=== PATIENT | male | born 1960 | race Caucasian/White ===

== ENCOUNTER 2018-09-07 12:15 | Emergency (ER) | payer OTHER ==
--- NOTE | 2018-09-07 13:21 | ER ---
Nurse's Notes [facility] Name: Jc Becerra Jr Age: 58 yrs Sex: Male : 1960 Arrival Date: 09/07/2018 Time: 12:18 Bed 15 Private MD: Diagnosis: Fall due to bumping against object;Pain in left wrist Presentation: 09/07 12:28 Presenting complaint: Patient states: Pain to left wrist after falling and catching aj himself with left hand today just ROLFER. Reports pain when extending fingers. Transition of care: patient was not received from another setting of care. Onset of symptoms was September 07, 2018. Risk Assessment: Do you want to hurt yourself or someone else? Patient reports no desire to harm self or others. Initial Sepsis Screen: Does the patient meet any 2 criteria? No. Patient's initial sepsis screen is negative. Does the patient have a suspected source of infection? No. Patient's initial sepsis screen is negative. Care prior to arrival: None. 12:28 Method Of Arrival: Ambulatory 12:28 Acuity: TESFAYE 4 aj Triage Assessment: 12:30 General: Appears in no apparent distress. comfortable, Behavior is calm, cooperative, aj appropriate for age. Pain: Complains of pain in left wrist. Neuro: Level of Consciousness is awake, alert, obeys commands, Oriented to person, place, time, situation, Appropriate for age. Respiratory: Airway is patent Respiratory effort is even, unlabored. Derm: Skin is intact, is healthy with good turgor, Skin is pink, warm \\T\\ dry. normal. Musculoskeletal: Reports pain in left wrist. 12:49 Injury Description: "tripped and fell over something that i told the grandkids not to tw2 trip over". Historical: - Allergies: 12:30 Ibuprofen; aj - Home Meds: 12:30 Lisinopril Oral [Active]; aspirin 81 mg Oral chew 1 tab once daily [Active]; aj - PMHx: 12:30 Hypertension; aj - PSHx: 12:30 prostate removal; Appendectomy; Knee surgery; Hernia repair; aj - Immunization history:: Adult Immunizations up to date. - Social history:: Smoking status: Patient uses tobacco products, smokes one pack cigarettes per day. - Ebola Screening: : Patient negative for fever greater than or equal to 101.5 degrees Fahrenheit, and additional compatible Ebola Virus Disease symptoms Patient denies exposure to infectious person Patient denies travel to an Ebola-affected area in the 21 days before illness onset No symptoms or risks identified at this time. - Family history:: not pertinent. Screenin:48 Abuse screen: Denies threats or abuse. Nutritional screening: No deficits noted. tw2 Tuberculosis screening: No symptoms or risk factors identified. Fall Risk None identified. Assessment: 12:50 Reassessment: Patient appears in no apparent distress at this time. General: Appears in tw2 no apparent distress. slender, Behavior is calm, cooperative, appropriate for age, Smells of cigarette smoke. Pain: Complains of pain in left arm. Neuro: Level of Consciousness is awake, alert, obeys commands, Oriented to person, place, time, situation. Cardiovascular: Patient's skin is warm and dry. Respiratory: Airway is patent Respiratory effort is even, unlabored, Respiratory pattern is regular, symmetrical. Musculoskeletal: Circulation, motion, and sensation intact. Reports pain in left arm. 13:40 Reassessment: Patient appears in no apparent distress at this time. No changes from tw2 previously documented assessment. Patient and/or family updated on plan of care and expected duration. Pain level reassessed. Patient is alert, oriented x 3, equal unlabored respirations, skin warm/dry/pink. Vital Signs: 12:30 BP 151 / 99; Pulse 122; Resp 20; Temp 98.0; Pulse Ox 99% on R/A; Weight 72.57 kg; aj Height 6 ft. 0 in. (182.88 cm); 13:39 BP 152 / 88; Pulse 90; Resp 19; Pulse Ox 99% on R/A; tw2 13:43 Pain 7/10; tw2 12:30 Body Mass Index 21.70 (72.57 kg, 182.88 cm) ED Course: 12:18 Patient arrived in ED. as 12:29 Triage completed. aj 12:30 Arm band placed on right wrist. Patient placed in an exam room. aj 12:32 Prema Pena, MARKOS is Primary Nurse. tw2 12:32 Bed in low position. Call light in reach. Pulse ox on. NIBP on. tw2 12:34 Ismael Landaverde MD is Attending Physician. [facility] 13:17 Armand Merlos MD is Referral Physician. [facility] 13:23 Wrist Left (3 View) XRAY In Process Unspecified. EDMS 13:42 No provider procedures requiring assistance completed. Patient did not have IV access tw2 during this emergency room visit. Administered Medications: 13:35 Drug: [place] 10 mg-325 mg 1 tabs Route: PO; tw2 13:43 Follow up: Pain 11/05 Adult; Response: No adverse reaction; Pain is decreased tw2 Outcome: 13:20 Discharge ordered by . [facility] 13:42 Discharged to home ambulatory, with family. tw2 13:42 Condition: stable 13:42 Discharge instructions given to patient, family, Instructed on discharge instructions, follow up and referral plans. no drinking with medication, no driving heavy equipment, medication usage, Demonstrated understanding of instructions, follow-up care, medications, Prescriptions given X 1. 13:43 Patient left the ED. tw2 Signatures: Dispatcher [employer] EDArgenis Mccloud RN RN aj Anderson, Corey, MD MD cha Martinez, Amelia as Wise, Tara, RN RN tw2
--- NOTE | 2018-09-07 13:21 | EDPHYS ---
Physician Documentation [facility] Name: Jc Becerra Jr Age: 58 yrs Sex: Male : 1960 Arrival Date: 09/07/2018 Time: 12:18 Bed 15 Private MD: ED Physician Ismael Landaverde HPI: 09/07 13:14 This 58 yrs old Male presents to ER via Ambulatory with complaints of Wrist grisel Injury. 13:14 The patient or guardian reports decreased range of motion, pain. The complaints affect grisel the left wrist diffusely. Context: The problem was sustained outdoors, resulted from a fall. Onset: The symptoms/episode began/occurred just prior to arrival. Modifying factors: The symptoms are alleviated by elevation, holding still, ice/coldpack to affected area, splinting, the symptoms are aggravated by movement, dependent position. Associated signs and symptoms: The patient has no apparent associated signs or symptoms. The patient has not experienced similar symptoms in the past. Historical: - Allergies: 12:30 Ibuprofen; aj - Home Meds: 12:30 Lisinopril Oral [Active]; aspirin 81 mg Oral chew 1 tab once daily [Active]; aj - PMHx: 12:30 Hypertension; aj - PSHx: 12:30 prostate removal; Appendectomy; Knee surgery; Hernia repair; aj - Immunization history:: Adult Immunizations up to date. - Social history:: Smoking status: Patient uses tobacco products, smokes one pack cigarettes per day. - Ebola Screening: : Patient negative for fever greater than or equal to 101.5 degrees Fahrenheit, and additional compatible Ebola Virus Disease symptoms Patient denies exposure to infectious person Patient denies travel to an Ebola-affected area in the 21 days before illness onset No symptoms or risks identified at this time. - Family history:: not pertinent. ROS: 13:14 Constitutional: Negative for fever, chills, and weight loss, Eyes: Negative for injury, grisel pain, redness, and discharge, ENT: Negative for injury, pain, and discharge, Neck: Negative for injury, pain, and swelling, Cardiovascular: Negative for chest pain, palpitations, and edema, Respiratory: Negative for shortness of breath, cough, wheezing, and pleuritic chest pain, Abdomen/GI: Negative for abdominal pain, nausea, vomiting, diarrhea, and constipation, Back: Negative for injury and pain, : Negative for injury, bleeding, discharge, and swelling, Skin: Negative for injury, rash, and discoloration, Neuro: Negative for headache, weakness, numbness, tingling, and seizure, Psych: Negative for depression, anxiety, suicide ideation, homicidal ideation, and hallucinations, Allergy/Immunology: Negative for hives, rash, and allergies, Endocrine: Negative for neck swelling, polydipsia, polyuria, polyphagia, and marked weight changes, Hematologic/Lymphatic: Negative for swollen nodes, abnormal bleeding, and unusual bruising. 13:14 MS/extremity: Positive for decreased range of motion, pain, tenderness, of the dorsal aspect of left wrist and palmar aspect of left wrist. Exam: 13:14 Constitutional: This is a well developed, well nourished patient who is awake, alert, grisel and in no acute distress. Head/Face: Normocephalic, atraumatic. Eyes: Pupils equal round and reactive to light, extra-ocular motions intact. Lids and lashes normal. Conjunctiva and sclera are non-icteric and not injected. Cornea within normal limits. Periorbital areas with no swelling, redness, or edema. ENT: Nares patent. No nasal discharge, no septal abnormalities noted. Tympanic membranes are normal and external auditory canals are clear. Oropharynx with no redness, swelling, or masses, exudates, or evidence of obstruction, uvula midline. Mucous membranes moist. Neck: Trachea midline, no thyromegaly or masses palpated, and no cervical lymphadenopathy. Supple, full range of motion without nuchal rigidity, or vertebral point tenderness. No Meningismus. Chest/axilla: Normal chest wall appearance and motion. Nontender with no deformity. No lesions are appreciated. Cardiovascular: Regular rate and rhythm with a normal S1 and S2. No gallops, murmurs, or rubs. Normal PMI, no JVD. No pulse deficits. Respiratory: Lungs have equal breath sounds bilaterally, clear to auscultation and percussion. No rales, rhonchi or wheezes noted. No increased work of breathing, no retractions or nasal flaring. Abdomen/GI: Soft, non-tender, with normal bowel sounds. No distension or tympany. No guarding or rebound. No evidence of tenderness throughout. Back: No spinal tenderness. No costovertebral tenderness. Full range of motion. Skin: Warm, dry with normal turgor. Normal color with no rashes, no lesions, and no evidence of cellulitis. Neuro: Awake and alert, GCS 15, oriented to person, place, time, and situation. Cranial nerves II-XII grossly intact. Motor strength 5/5 in all extremities. Sensory grossly intact. Cerebellar exam normal. Normal gait. Psych: Awake, alert, with orientation to person, place and time. Behavior, mood, and affect are within normal limits. 13:14 Musculoskeletal/extremity: Extremities: noted in the lateral aspect of left wrist and medial aspect of left wrist: decreased ROM, pain. Vital Signs: 12:30 BP 151 / 99; Pulse 122; Resp 20; Temp 98.0; Pulse Ox 99% on R/A; Weight 72.57 kg; aj Height 6 ft. 0 in. (182.88 cm); 13:39 BP 152 / 88; Pulse 90; Resp 19; Pulse Ox 99% on R/A; tw2 13:43 Pain 7/10; tw2 12:30 Body Mass Index 21.70 (72.57 kg, 182.88 cm) MDM: 12:34 Patient medically screened. [facility] 13:17 Data reviewed: vital signs, nurses notes, radiologic studies, plain films. [facility] 09/07 12:35 Order name: Wrist Left (3 View) XRAY [facility] 09/07 12:35 Order name: Ice pack; Complete Time: 12:47 [facility] 09/07 13:14 Order name: Wrist Splint: velcro cock up; Complete Time: 13:30 [facility] Administered Medications: 13:35 Drug: [place] 10 mg-325 mg 1 tabs Route: PO; tw2 13:43 Follow up: Pain 7/10 Adult; Response: No adverse reaction; Pain is decreased tw2 Disposition: 09/07/18 13:20 Discharged to Home. Impression: Fall due to bumping against object, Pain in left wrist. - Condition is Stable. - Discharge Instructions: Joint Pain, Wrist Pain, Wrist Pain, [id number], Fall Prevention in the Home, [id number]. - Prescriptions for Tylenol- Codeine #3 300-30 mg Oral Tablet - take 2 tablet by ORAL route every 6 hours As needed; 30 tablet. - Medication Reconciliation Form, Thank You Letter, Antibiotic Education, Prescription Opioid Use form. - Follow up: Private Physician; When: 2 - 3 days; Reason: Recheck today's complaints, Re-evaluation by your physician. Follow up: Armand Merlos MD; When: 2 - 3 days; Reason: Recheck today's complaints, Continuance of care, Re-evaluation by your physician. - Problem is new. - Symptoms have improved. Signatures: Dispatcher [employer] EDArgenis Mccloud RN RN aj Anderson, Corey, MD MD cha Wise, Tara, RN RN tw2 Corrections: (The following items were deleted from the chart) 13:43 13:20 09/07/2018 13:20 Discharged to Home. Impression: Fall due to bumping against tw2 object; Pain in left wrist. Condition is Stable. Forms are Medication Reconciliation Form, Thank You Letter, Antibiotic Education, Prescription Opioid Use. Follow up: Private Physician; When: 2 - 3 days; Reason: Recheck today's complaints, Re-evaluation by your physician. Follow up: Armand Merlos; When: 2 - 3 days; Reason: Recheck today's complaints, Continuance of care, Re-evaluation by your physician. Problem is new. Symptoms have improved. grisel
--- NOTE | 2018-09-07 13:27 | RAD REPORT ---
EXAM DESCRIPTION: RAD - Wrist Left 3 View - 09/07/2018 1:19 pm CLINICAL HISTORY: PAIN Pain COMPARISON: No comparisons FINDINGS: No acute fracture or dislocation. Mild soft tissue swelling is seen about the wrist. Tiny metallic presumed foreign body projects over the region of radial styloid soft tissues.
[2018-09-07] MEDS ORDERED: HYDROCODONE/APAP 10/325 TAB ONE (13:46)
== END 2018-09-07 13:43 | disposition home or self-care (01) ==
LOC: ER 12:15
DX: M25.532 Pain in left wrist (principal); W18.00XA Striking against unspecified object with subsequent fall, initial encounter; Y93.9 Activity, unspecified; Y92.89 Other specified places as the place of occurrence of the external cause; Z79.82 Long term (current) use of aspirin; Z88.6 Allergy status to analgesic agent; Z90.79 Acquired absence of other genital organ(s); I10 Essential (primary) hypertension; F17.210 Nicotine dependence, cigarettes, uncomplicated
CPT/HCPCS: 99284

== ENCOUNTER 2019-03-31 01:20 | Emergency (ER) | payer OTHER ==
[2019-03-31] MEDS ORDERED: LEVALBUTEROL 0.63 MG/3 ML NEB ONE (01:54)
[2019-03-31] MEDS ORDERED: LEVALBUTEROL 1.25 MG/3 ML NEB ONE (01:54)
[2019-03-31] MEDS ORDERED: predniSONE 20 MG TAB ONE (01:54)
[2019-03-31] MEDS ORDERED: NA CHLORIDE 0.9% 1,000 ML ONE (02:33)
[2019-03-31 02:40] LABS: Protime INR 1.11
[2019-03-31 02:41] LABS: Absolute Lymphocytes (CBC) 2.2 K/uL (0.7-4.9); Hematocrit 45.2 % (39.6-49.0); Lymphocytes % 17.5 % (15.3-44.8); MPV 10.4 fL (7.6-11.3); RBC Red Blood Cell Count 5.04 M/uL (4.33-5.43)
[2019-03-31] MEDS ORDERED: LORAZEPAM 0.5 MG TABLET ONE (02:51)
[2019-03-31 02:54] LABS: Albumin 3.6 g/dL (3.4-5.0); Bilirubin Direct 0.1 mg/dL (0-0.2); Bilirubin Total 0.5 mg/dL (0.2-1.0); Magnesium 2.2 mg/dL (1.8-2.4); Potassium 4.1 mmol/L (3.5-5.1); Protein, Total 6.8 g/dL (6.4-8.2); Troponin (Emerg Dept Use Only) 0.02 ng/mL (0.0-0.045)
[2019-03-31] MEDS ORDERED: LORazepam 2 MG/ML VIAL ONE (03:23)
--- NOTE | 2019-03-31 03:39 | ER ---
Nurse's Notes [facility] Name: Jc Becerra Jr Age: 58 yrs Sex: Male : 1960 Arrival Date: 03/31/2019 Time: 01:22 Bed 15 Private MD: Diagnosis: Chronic obstructive pulmonary disease, unspecified Presentation: 03/31 01:30 Presenting complaint: Patient states: Earlier today I was having chest pain at 230pm jb4 and it went away and now it is back and started at 11pm yesterday. It's a pressure pain that radiates to my left arm. 01:30 Transition of care: patient was not received from another setting of care. Onset of jb4 symptoms was March 30, 2019. Risk Assessment: Do you want to hurt yourself or someone else? Patient reports no desire to harm self or others. Initial Sepsis Screen: Does the patient meet any 2 criteria? HR > 90 bpm. Yes Does the patient have a suspected source of infection? No. Patient's initial sepsis screen is negative. Care prior to arrival: None. 01:30 Method Of Arrival: Wheelchair jb4 01:30 Acuity: TESFAYE 3 jb4 Historical: - Allergies: 01:30 Ibuprofen; jb4 - Home Meds: 01:30 aspirin 81 mg Oral chew 1 tab once daily [Active]; lisinopril 40 mg oral tab once daily jb4 [Active]; tramadol 50 mg Oral tab 2 tabs every 8 hours [Active]; - PMHx: 01:30 Hypertension; Hernia; colon cancer; COPD; jb4 - PSHx: 01:30 Hernia repair; GENESIS knees; Appendectomy; colon; jb4 - Immunization history:: Adult Immunizations up to date. - Social history:: Smoking status: Patient uses tobacco products, smokes one pack cigarettes per day. Patient/guardian denies using alcohol. - Ebola Screening: : No symptoms or risks identified at this time. Screenin:30 Abuse screen: Denies threats or abuse. Nutritional screening: No deficits noted. jb4 Tuberculosis screening: No symptoms or risk factors identified. Fall Risk None identified. Assessment: 01:30 General: Appears in no apparent distress. uncomfortable, Behavior is calm, cooperative. jb4 Pain: Complains of pain in diaphragm Pain radiates to left arm Pain currently is 4 out of 10 on a pain scale. Quality of pain is described as pressure, Pain began 2 hours ago. Is continuous. Neuro: Level of Consciousness is awake, alert, obeys commands, Oriented to person, place, time, situation. Cardiovascular: Patient's skin is warm and dry. Rhythm is sinus tachycardia. Respiratory: Airway is patent Respiratory effort is even, labored, Respiratory pattern is regular, symmetrical. GI: No signs and/or symptoms were reported involving the gastrointestinal system. : No signs and/or symptoms were reported regarding the genitourinary system. EENT: No signs and/or symptoms were reported regarding the EENT system. Derm: Skin is intact, Skin is pink, warm \T\ dry. Musculoskeletal: Circulation, motion, and sensation intact. Range of motion: intact in all extremities. 02:30 Reassessment: Patient appears in no apparent distress at this time. Patient and/or jb4 family updated on plan of care and expected duration. Pain level reassessed. Patient is alert, oriented x 3, equal unlabored respirations, skin warm/dry/pink. Patient states feeling better. 02:50 Reassessment: PT appears more anxious and verbalized feeling more anxious. Provider jb4 notified, see [facility] for orders. 04:00 Reassessment: Patient appears in no apparent distress at this time. Patient and/or jb4 family updated on plan of care and expected duration. Pain level reassessed. Patient is alert, oriented x 3, equal unlabored respirations, skin warm/dry/pink. Vital Signs: 01:30 BP 158 / 108; Pulse 125; Resp 19 S; Temp 98.3(O); Pulse Ox 100% on R/A; Weight 73.48 kg jb4 (R); Height 6 ft. 0 in. (182.88 cm); Pain 4/10; 02:50 BP 145 / 95; Pulse 125; Resp 20; Pulse Ox 100% on R/A; jb4 04:00 BP 139 / 82; Pulse 120; Resp 16; Pulse Ox 98% on R/A; jb4 01:30 Body Mass Index 21.97 (73.48 kg, 182.88 cm) jb4 ED Course: 01:22 Patient arrived in ED. cl3 01:25 Elias Alfonso, MARKOS is Primary Nurse. jb4 01:30 Patient maintains SpO2 saturation greater than 95% on room air. jb4 01:30 Arm band placed on right wrist. jb4 01:30 Patient has correct armband on for positive identification. Placed in gown. Bed in low jb4 position. Call light in reach. Side rails up X 1. monitor technician on. Pulse ox on. NIBP on. 01:36 Triston Doimnguez NP is PHCP. pm1 01:36 Isai Bedoya MD is Attending Physician. pm1 01:41 Triage completed. jb4 01:42 EKG done, by ED staff, reviewed by Isai Bedoya MD. Inserted saline lock: 20 gauge mt in right antecubital area, using aseptic technique. Blood collected. 01:57 XRAY Chest (1 view) In Process Unspecified. EDMS 04:00 No provider procedures requiring assistance completed. IV discontinued, intact, jb4 bleeding controlled, No redness/swelling at site. Pressure dressing applied. Administered Medications: 01:55 Drug: predniSONE 60 mg Route: PO; jb4 02:30 Follow up: Response: No adverse reaction jb4 02:00 Drug: Xopenex (3) 1.25 mg Route: Inhalation; jb4 02:30 Follow up: Response: No adverse reaction; Marked relief of symptoms jb4 02:45 Drug: NS 0.9% 1000 ml Route: IV; Rate: 1 bolus; Site: right antecubital; jb4 04:00 Follow up: IV Status: Order to discontinue infusion; IV Intake: 500ml jb4 02:57 Drug: Ativan 1 mg Route: PO; jb4 03:25 Follow up: Response: No adverse reaction; Marked relief of symptoms jb4 03:25 Drug: Ativan 0.5 mg Route: IVP; Site: right antecubital; jb4 03:35 Follow up: Response: No adverse reaction; Marked relief of symptoms jb4 Intake: 04:00 IV: 500ml; Total: 500ml. jb4 Outcome: 03:38 Discharge ordered by . pm1 04:00 Discharged to home via wheelchair, with family. jb4 04:00 Condition: stable 04:00 Discharge instructions given to patient, family, Instructed on discharge instructions, follow up and referral plans. Demonstrated understanding of instructions, follow-up care. 04:09 Patient left the ED. jb4 Signatures: Dispatcher [employer] EDWV Triston Dominguez NP HAND TUBE WINDER pm1 Elias Alfonso, RN RN jb4 Mireya Gotti mt, [place] cl3
--- NOTE | 2019-03-31 03:39 | EDPHYS ---
Physician Documentation [facility] Name: Jc Becerra Jr Age: 58 yrs Sex: Male : 1960 Arrival Date: 03/31/2019 Time: 01:22 Bed 15 Private MD: ED Physician Isai Bedoya HPI: 03/31 01:39 This 58 yrs old Male presents to ER via Wheelchair with complaints of Chest pm1 Pain. 01:39 The patient or guardian reports chest pain that is located primarily in the diaphragm. pm1 Onset: 1 week(s) ago. The pain does not radiate. Associated signs and symptoms: Pertinent positives: cough, shortness of breath, Pertinent negatives: abdominal pain, headache. The chest pain is described as sharp. Modifying factors: The symptoms are alleviated by nothing. the symptoms are aggravated by nothing. Severity of pain: in the emergency department the pain is actually worse. The patient has experienced similar episodes in the past, multiple times. The patient has been recently seen by a physician: the patient's primary care provider, Dr. Trevino with similar presenting complaints, given albuterol for his COPD. Patient did not take his albuterol today because it makes him jittery. Historical: - Allergies: 01:30 Ibuprofen; jb4 - Home Meds: 01:30 aspirin 81 mg Oral chew 1 tab once daily [Active]; lisinopril 40 mg oral tab once daily jb4 [Active]; tramadol 50 mg Oral tab 2 tabs every 8 hours [Active]; - PMHx: 01:30 Hypertension; Hernia; colon cancer; COPD; jb4 - PSHx: 01:30 Hernia repair; GENESIS knees; Appendectomy; colon; jb4 - Immunization history:: Adult Immunizations up to date. - Social history:: Smoking status: Patient uses tobacco products, smokes one pack cigarettes per day. Patient/guardian denies using alcohol. - Ebola Screening: : No symptoms or risks identified at this time. ROS: 01:39 Constitutional: Negative for fever, chills, and weight loss, Eyes: Negative for injury, pm1 pain, redness, and discharge, ENT: Negative for injury, pain, and discharge, Neck: Negative for injury, pain, and swelling. 01:39 Abdomen/GI: Negative for abdominal pain, nausea, vomiting, diarrhea, and constipation, Back: Negative for injury and pain, MS/Extremity: Negative for injury and deformity, Skin: Negative for injury, rash, and discoloration, Neuro: Negative for headache, weakness, numbness, tingling, and seizure. 01:39 Cardiovascular: Positive for chest pain, of the diaphragm, palpitations, Negative for edema. 01:39 Respiratory: Positive for cough, shortness of breath. Exam: 01:39 Constitutional: This is a well developed, well nourished patient who is awake, alert, pm1 and in no acute distress. Head/Face: Normocephalic, atraumatic. Neck: Trachea midline, no thyromegaly or masses palpated, and no cervical lymphadenopathy. Supple, full range of motion without nuchal rigidity, or vertebral point tenderness. No Meningismus. 01:39 Abdomen/GI: Soft, non-tender, with normal bowel sounds. No distension or tympany. No guarding or rebound. No evidence of tenderness throughout. Back: No spinal tenderness. No costovertebral tenderness. Full range of motion. Skin: Warm, dry with normal turgor. Normal color with no rashes, no lesions, and no evidence of cellulitis. MS/ Extremity: Pulses equal, no cyanosis. Neurovascular intact. Full, normal range of motion. 01:39 Chest/axilla: Inspection: normal, Palpation: tenderness, of the diaphragm, that totally reproduces the patient's complaints. 01:39 Cardiovascular: Rate: tachycardic, Rhythm: regular, Pulses: no pulse deficits are appreciated, Heart sounds: normal, Edema: is not appreciated. 01:39 Respiratory: the patient does not display signs of respiratory distress, Breath sounds: decreased breath sounds, are scattered. 01:39 Neuro: Orientation: is normal, Motor: is normal, moves all fours, Sensation: is normal, no obvious gross deficits. Vital Signs: 01:30 BP 158 / 108; Pulse 125; Resp 19 S; Temp 98.3(O); Pulse Ox 100% on R/A; Weight 73.48 kg jb4 (R); Height 6 ft. 0 in. (182.88 cm); Pain 4/10; 02:50 BP 145 / 95; Pulse 125; Resp 20; Pulse Ox 100% on R/A; jb4 04:00 BP 139 / 82; Pulse 120; Resp 16; Pulse Ox 98% on R/A; jb4 01:30 Body Mass Index 21.97 (73.48 kg, 182.88 cm) jb4 MDM: 01:36 Patient medically screened. pm1 02:51 Data reviewed: vital signs. Data interpreted: Pulse oximetry: on room air is 100 %. pm1 Interpretation: normal. 03:01 ED course: Patient reports tachycardia is his normal baseline. Offered beta-blockers pm1 but refuses them. 03:38 Counseling: I had a detailed discussion with the patient and/or guardian regarding: the pm1 historical points, exam findings, and any diagnostic results supporting the discharge/admit diagnosis, lab results, radiology results, the need for outpatient follow up, to return to the emergency department if symptoms worsen or persist or if there are any questions or concerns that arise at home. 03/31 01:38 Order name: Basic Metabolic Panel; Complete Time: 02:56 pm1 03/31 01:38 Order name: CBC with Diff; Complete Time: 02:51 pm1 03/31 01:38 Order name: LFT's; Complete Time: 02:56 pm1 03/31 01:38 Order name: Magnesium; Complete Time: 02:57 pm1 03/31 01:38 Order name: NT PRO-BNP; Complete Time: 02:56 pm1 03/31 01:38 Order name: PT-INR; Complete Time: 02:51 pm1 03/31 01:38 Order name: Troponin (emerg Dept Use Only); Complete Time: 02:57 pm1 03/31 01:38 Order name: XRAY Chest (1 view) pm1 03/31 01:38 Order name: EKG; Complete Time: 01:39 pm1 03/31 01:38 Order name: Cardiac monitoring; Complete Time: 01:42 pm1 03/31 01:38 Order name: EKG - Nurse/Tech; Complete Time: 01:42 pm1 03/31 01:38 Order name: IV Saline Lock; Complete Time: 01:42 pm1 03/31 01:38 Order name: Labs collected and sent; Complete Time: 01:42 pm1 03/31 01:38 Order name: O2 Per Protocol; Complete Time: 01:42 pm1 03/31 01:38 Order name: O2 Sat Monitoring; Complete Time: 01:43 pm1 Administered Medications: 01:55 Drug: predniSONE 60 mg Route: PO; jb4 02:30 Follow up: Response: No adverse reaction jb4 02:00 Drug: Xopenex (3) 1.25 mg Route: Inhalation; jb4 02:30 Follow up: Response: No adverse reaction; Marked relief of symptoms jb4 02:45 Drug: NS 0.9% 1000 ml Route: IV; Rate: 1 bolus; Site: right antecubital; jb4 04:00 Follow up: IV Status: Order to discontinue infusion; IV Intake: 500ml jb4 02:57 Drug: Ativan 1 mg Route: PO; jb4 03:25 Follow up: Response: No adverse reaction; Marked relief of symptoms jb4 03:25 Drug: Ativan 0.5 mg Route: IVP; Site: right antecubital; jb4 03:35 Follow up: Response: No adverse reaction; Marked relief of symptoms jb4 Disposition: 07:28 Co-signature as Attending Physician, Isai Bedoya MD I agree with the assessment and tw4 plan of care. Disposition: 03/31/19 03:38 Discharged to Home. Impression: Chronic obstructive pulmonary disease, unspecified. - Condition is Stable. - Discharge Instructions: Chronic Obstructive Pulmonary Disease, Generalized Anxiety Disorder. - Medication Reconciliation Form, Thank You Letter, Antibiotic Education, Prescription Opioid Use form. - Follow up: Emergency Department; When: As needed; Reason: Worsening of condition. Follow up: Private Physician; When: 2 - 3 days; Reason: Recheck today's complaints, Continuance of care, Re-evaluation by your physician. - Problem is new. - Symptoms have improved. Signatures: Dispatcher [employer] Triston Dominguez NP GLOBAL MARKETING MANAGER pm1 Elias Alfonso RN RN jb4 Isai Bedoya MD MD tw4 Corrections: (The following items were deleted from the chart) 04:09 03:38 03/31/2019 03:38 Discharged to Home. Impression: Chronic obstructive pulmonary jb4 disease, unspecified. Condition is Stable. Forms are Medication Reconciliation Form, Thank You Letter, Antibiotic Education, Prescription Opioid Use. Follow up: Emergency Department; When: As needed; Reason: Worsening of condition. Follow up: Private Physician; When: 2 - 3 days; Reason: Recheck today's complaints, Continuance of care, Re-evaluation by your physician. Problem is new. Symptoms have improved. pm1
--- NOTE | 2019-03-31 06:37 | RAD REPORT ---
EXAM DESCRIPTION: RAD - Chest Single View - 03/31/2019 1:56 am CLINICAL HISTORY: CHEST PAIN Chest pain. COMPARISON: No comparisons FINDINGS: Portable technique limits examination quality. The lungs are emphysematous but grossly clear. The heart is normal in size. No displaced fractures. IMPRESSION: Prominent COPD pattern.
[2019-03-31 07:03] VITALS: TEMP 98.3; O2SAT 100
[2019-03-31 07:04] VITALS: BP 145/95
--- NOTE | 2019-03-31 08:01 | EKG ---
Test Date: 2019-03-31 Test Time: 01:33:30 Prepress Technician: INDER MEASUREMENT RESULTS: Intervals: Rate: 124 ID: [id number] QRSD: 96 QT: 330 QTc: 474 [place]: P: 80 ID: [id number] QRS: 83 T: 48 INTERPRETIVE STATEMENTS: Sinus tachycardia Possible Left atrial enlargement Left ventricular hypertrophy Nonspecific ST and T wave abnormality Abnormal ECG Compared to ECG 01/13/1997 16:27:00 Left ventricular hypertrophy now present ST (T wave) deviation now present Sinus rhythm no longer present Electronically Signed On 03-31-19 08:00:25 BINDERY WORKER by Hesham Jaime
== END 2019-03-31 04:09 | disposition home or self-care (01) ==
LOC: ER 01:20
DX: J44.9 Chronic obstructive pulmonary disease, unspecified (principal); I10 Essential (primary) hypertension; Z85.038 Personal history of other malignant neoplasm of large intestine; F17.210 Nicotine dependence, cigarettes, uncomplicated
CPT/HCPCS: 96361; 93005; 85025; 80048; 36415; 83735; 85610; 80076; 84484; 83880; 71045; 96374; 99285; J7030; J7512

== ENCOUNTER 2019-04-15 02:23 | Inpatient (IN) | payer MEDICARE, OTHER ==
[2019-04-15] MEDS ORDERED: ALBUTEROL 2.5 MG/3 ML NEB SOL ONE (02:32)
[2019-04-15] MEDS ORDERED: IPRATROPIUM BROM 0.5MG/2.5ML ONE (02:33)
[2019-04-15 03:11] LABS: Basophils % 0.6 % (0-1.3); Hematocrit 44.1 % (39.6-49.0); RBC Red Blood Cell Count 4.93 M/uL (4.33-5.43)
[2019-04-15 03:14] LABS: Protime INR 1.27
[2019-04-15 03:23] LABS: Albumin 3.4 g/dL (3.4-5.0); Bilirubin Direct 0.3 mg/dL (0-0.2); Bilirubin Total 0.7 mg/dL (0.2-1.0); CKMB Creatine Kinase MB 4.9 ng/mL (0.3-3.6); Magnesium 2.1 mg/dL (1.8-2.4); Potassium 4.3 mmol/L (3.5-5.1); Protein, Total 6.7 g/dL (6.4-8.2); Troponin (Emerg Dept Use Only) 0.03 ng/mL (0.0-0.045)
--- NOTE | 2019-04-15 03:29 | EDPHYS ---
Physician Documentation [facility] Name: Jc Becerra Jr Age: 58 yrs Sex: Male : 1960 Arrival Date: 04/15/2019 Time: 02:34 Bed 4 Private MD: ED Physician Isai Bedoya HPI: 04/15 03:55 This 58 yrs old Male presents to ER via EMS with complaints of Breathing tw4 Difficulty. 03:55 The patient has shortness of breath at rest. Onset: The symptoms/episode began/occurred tw4 today. Duration: The symptoms are continuous, and are unchanged since they started. The patient's shortness of breath has no apparent modifying factors. Associated signs and symptoms: The patient has no apparent associated signs or symptoms. Severity of symptoms: At their worst the symptoms were moderate in the emergency department the symptoms are unchanged. 03:55 The patient has experienced similar episodes in the past, several times, chronically, tw4 and the symptoms today are exactly the same, to when the patient was apparently diagnosed with COPD EXACERBATION. Historical: - Allergies: 02:40 Ibuprofen; ao - Home Meds: 02:40 aspirin 81 mg Oral chew 1 tab once daily [Active]; lisinopril 40 mg Oral tab once daily ao [Active]; tramadol 50 mg Oral tab 2 tabs every 8 hours [Active]; anoro for Cancer Treatment [Active]; stiolto [Active]; Albuterol Nebulizer [Active]; - PMHx: 02:40 colon cancer; COPD; Hernia; Hypertension; ao - PSHx: 02:40 None; ao - Immunization history:: Adult Immunizations up to date. - Social history:: Smoking status: Patient uses tobacco products, denies chronic smoking, but will smoke occasionally, Patient/guardian denies using alcohol, IV drugs. - Ebola Screening: : Patient negative for fever greater than or equal to 101.5 degrees Fahrenheit, and additional compatible Ebola Virus Disease symptoms Patient denies exposure to infectious person Patient denies travel to an Ebola-affected area in the 21 days before illness onset. ROS: 03:58 Constitutional: Negative for fever, chills, and weight loss, Eyes: Negative for injury, tw4 pain, redness, and discharge, ENT: Negative for injury, pain, and discharge, Cardiovascular: Negative for chest pain, palpitations, and edema, Abdomen/GI: Negative for abdominal pain, nausea, vomiting, diarrhea, and constipation, Back: Negative for injury and pain, MS/Extremity: Negative for injury and deformity, Skin: Negative for injury, rash, and discoloration, Neuro: Negative for headache, weakness, numbness, tingling, and seizure. 03:58 Respiratory: Positive for cough, dyspnea on exertion, shortness of breath, on exertion. Negative for hemoptysis, orthopnea, pleurisy. Exam: 03:58 Constitutional: This is a well developed, well nourished patient who is awake, alert, tw4 and in no acute distress. Head/Face: Normocephalic, atraumatic. Chest/axilla: Normal chest wall appearance and motion. Nontender with no deformity. No lesions are appreciated. Cardiovascular: Regular rate and rhythm with a normal S1 and S2. No gallops, murmurs, or rubs. Normal PMI, no JVD. No pulse deficits. 03:58 Abdomen/GI: Soft, non-tender, with normal bowel sounds. No distension or tympany. No guarding or rebound. No evidence of tenderness throughout. Back: No spinal tenderness. No costovertebral tenderness. Full range of motion. MS/ Extremity: Pulses equal, no cyanosis. Neurovascular intact. Full, normal range of motion. Neuro: Awake and alert, GCS 15, oriented to person, place, time, and situation. Cranial nerves II-XII grossly intact. Motor strength 5/5 in all extremities. Sensory grossly intact. Cerebellar exam normal. Normal gait. 03:58 Respiratory: moderate respiratory distress is noted, Respirations: labored breathing, that is moderate, accessory muscle usage, that is moderate, paradoxical chest movement, pursed lip breathing, that is moderate, shallow respirations. Vital Signs: 02:30 BP 148 / 93; Pulse 132; Resp 32; Pulse Ox 84% on R/A; Pain 0/10; ao 02:40 Pulse Ox 96% on Nebulizer Mask; ao 03:18 BP 138 / 96; Pulse 131; Resp 18; Temp 98.3(O); Pulse Ox 96% on 3 lpm NC; ao 05:00 BP 121 / 86; Pulse 126; Resp 22; Pulse Ox 96% on R/A; jb4 05:41 BP 109 / 83; Pulse 124; Resp 20; Pulse Ox 94% on 3 lpm NC; ao MDM: 02:36 Patient medically screened. tw4 03:59 Differential diagnosis: Anemia CHF exacerbation, Chronic Obstructive Pulmonary Disease tw4 Myocardial Infarction pneumonia, Pneumothorax pulmonary edema, Pulmonary Embolism Unstable Angina. Antibiotic administration: Data reviewed: lab test result(s), cardiac enzymes, troponin i, CBC, white blood cell count, hemoglobin, hematocrit, platelets, electrolytes, sodium, potassium, chloride, serum bicarbonate, BUN, creatinine, serum glucose, hepatic panel, radiologic studies, plain films. Data interpreted: Pulse oximetry: Interpretation: normal. Counseling: I had a detailed discussion with the patient and/or guardian regarding: the historical points, exam findings, and any diagnostic results supporting the discharge/admit diagnosis, radiology results. Physician consultation: Monie Meléndez MD regarding admission, to the telemetry unit. patient's condition. 04/15 02:36 Order name: Blood Culture Adult (2) 04/15 02:36 Order name: BMP; Complete Time: 03:25 04/15 03:25 Interpretation: Normal except: GFR 64. 04/15 02:36 Order name: CBC with Diff 04/15 02:36 Order name: Ckmb; Complete Time: 03:25 04/15 03:25 Interpretation: Abnormal: CKMB 4.9. 04/15 02:36 Order name: CPK; Complete Time: 03:25 04/15 03:26 Interpretation: Within normal limits: CPK 238. 04/15 02:36 Order name: Hepatic Function; Complete Time: 03:25 04/15 03:26 Interpretation: Normal except: BILID 0.3; ALK 141; AST 40; A/G 1.0. 04/15 02:36 Order name: Lipase; Complete Time: 03:25 04/15 03:26 Interpretation: Normal except: LIP 44. 04/15 02:36 Order name: Magnesium; Complete Time: 03:25 04/15 03:26 Interpretation: Within normal limits: MG 2.1. 04/15 02:36 Order name: NT PRO-BNP; Complete Time: 03:25 04/15 03:26 Interpretation: Normal except: NT PRO-BNP 79492. 04/15 02:36 Order name: PT-INR tw4 04/15 02:36 Order name: Ptt, Activated tw4 04/15 02:36 Order name: Troponin (emerg Dept Use Only); Complete Time: 03:25 tw4 04/15 03:26 Interpretation: TROPED 0.03. tw4 04/15 03:14 Order name: Manual Differential EDMS 04/15 05:39 Order name: CBC with Automated Diff EDMS 04/15 05:39 Order name: CBC with Automated Diff EDMS 04/15 05:39 Order name: Comprehensive Metabolic Panel EDMS 04/15 05:39 Order name: Comprehensive Metabolic Panel EDMS 04/15 05:39 Order name: Lactate EDMS 04/15 05:39 Order name: Lactate EDMS 04/15 05:39 Order name: Lipid Profile EDMS 04/15 05:39 Order name: Lipid Profile EDMS 04/15 05:39 Order name: Magnesium EDMS 04/15 05:39 Order name: Magnesium EDMS 04/15 05:39 Order name: Phosphorus EDMS 04/15 05:39 Order name: Phosphorus EDMS 04/15 05:39 Order name: NT PRO-BNP EDMS 04/15 05:39 Order name: NT PRO-BNP EDMS 04/15 05:39 Order name: T4 Free EDMS 04/15 05:39 Order name: T4 Free EDMS 04/15 05:39 Order name: Troponin I EDMS 04/15 02:36 Order name: XRAY CXR (1 view) 4 04/15 02:36 Order name: EKG; Complete Time: 02:38 04/15 02:36 Order name: Cardiac monitoring; Complete Time: 02:43 04/15 02:36 Order name: EKG - Nurse/Tech; Complete Time: 02:43 04/15 02:36 Order name: IV Saline Lock; Complete Time: 03:16 04/15 02:36 Order name: Labs collected and sent; Complete Time: 03:16 04/15 02:36 Order name: O2 Per Protocol; Complete Time: 02:43 04/15 02:36 Order name: O2 Sat Monitoring; Complete Time: 02:43 04/15 05:38 Order name: CONS Physician Consult EDMS 04/15 05:39 Order name: CONS Physician Consult EDMS 04/15 05:39 Order name: Heart Healthy [facility] 04/15 05:39 Order name: Troponin I [facility] 04/15 05:39 Order name: Troponin I [facility] 04/15 05:39 Order name: Thyroid Stimulating Hormone [facility] 04/15 05:39 Order name: Thyroid Stimulating Hormone [facility] EC:21 Rate is 132 beats/min. Rhythm is regular, Sinus tachycardia. QRS [place] is Normal. [place] tw4 interval is normal. QRS interval is normal. QT interval is normal. No Q waves. T waves are Inverted in leads V5, V6. No ST changes noted. Clinical impression: NSR w/ Non-specific ST/T Changes. Interpreted by me. Reviewed by me. Administered Medications: 02:50 Drug: DuoNeb (3:1) (2.5 mg - 0.5 mg) 3 ml Route: Nebulizer; ao 06:44 Follow up: Response: No adverse reaction ao 04:27 Drug: AZITHromycin 500 mg Route: IVPB; Infused Over: 1 hrs; Site: right forearm; ao 06:45 Follow up: IV Status: Completed infusion ao 04:28 Drug: Cefepime 1 grams Route: IVPB; Rate: 200 ml/hr; Infused Over: 30 mins; Site: right ao antecubital; 06:45 Follow up: Response: No adverse reaction; IV Status: Completed infusion ao 05:04 Drug: Zofran 4 mg Route: IVP; Site: right antecubital; jb4 06:45 Follow up: Response: No adverse reaction ao 05:06 Drug: morphine 4 mg {Note: Rass score 0, B/p 121/86.} Route: IVP; Site: right jb4 antecubital; 06:44 Follow up: Response: No adverse reaction; Pain is decreased; RASS: Alert and Calm (0) ao Disposition: 04/15/19 03:28 Hospitalization ordered by Monie Meléndez for Inpatient Admission. Preliminary diagnosis is Bacterial pneumonia, not elsewhere classified. - Bed requested for Telemetry/MedSurg (Inpatient). - Status is Inpatient Admission. ao - Condition is Fair. - Problem is an ongoing problem. - Symptoms have improved. UTI on Admission? No Signatures: Dispatcher [employer] [facility] Madison Wright RN RN Porfirio Greenwood RN RN ao Bryson, James, RN RN jb4 Isai Bedoya MD MD tw4 Corrections: (The following items were deleted from the chart) 03:58 03:55 The patient has not experienced similar symptoms in the past, tw4 05:51 03:28 Hospitalization Ordered by Monie Meléndez MD for Inpatient Admission. Preliminary cg diagnosis is Bacterial pneumonia, not elsewhere classified. Bed requested for Telemetry/MedSurg (Inpatient). Status is Inpatient Admission. Condition is Fair. Problem is an ongoing problem. Symptoms have improved. UTI on Admission? No. tw4 06:45 05:51 04/15/2019 03:28 Hospitalization Ordered by Monie Meléndez MD for Inpatient ao Admission. Preliminary diagnosis is Bacterial pneumonia, not elsewhere classified. Bed requested for Telemetry/MedSurg (Inpatient). Status is Inpatient Admission. Condition is Fair. Problem is an ongoing problem. Symptoms have improved. UTI on Admission? No. cg
--- NOTE | 2019-04-15 03:29 | ER ---
Nurse's Notes [facility] Name: Jc Becerra Jr Age: 58 yrs Sex: Male : 1960 Arrival Date: 04/15/2019 Time: 02:34 Bed 4 Private MD: Diagnosis: Bacterial pneumonia, not elsewhere classified Presentation: 04/15 02:34 Presenting complaint: EMS states: C/O SOB and CP that started two hours ago. Reported ao by EMS patient lung sounds diminished. Pt was given albuterol times 2 and Atrovent by EMS. Transition of care: patient was not received from another setting of care. Onset of symptoms is unknown. Risk Assessment: Do you want to hurt yourself or someone else? Patient reports no desire to harm self or others. Initial Sepsis Screen: Does the patient meet any 2 criteria? No. Patient's initial sepsis screen is negative. Does the patient have a suspected source of infection? No. Patient's initial sepsis screen is negative. Care prior to arrival: Medication(s) given: Albuterol Neb x 2, Atrovent Neb x 1. 02:34 Method Of Arrival: EMS: [facility] ao 02:34 Acuity: TESFAYE 2 ao Triage Assessment: 02:43 General: Appears distressed. Respiratory: Reports shortness of breath cough that is ao Onset: The symptoms/episode began/occurred this morning, the patient has moderate shortness of breath. Historical: - Allergies: 02:40 Ibuprofen; ao - Home Meds: 02:40 aspirin 81 mg Oral chew 1 tab once daily [Active]; lisinopril 40 mg Oral tab once daily ao [Active]; tramadol 50 mg Oral tab 2 tabs every 8 hours [Active]; anoro for Cancer Treatment [Active]; stiolto [Active]; Albuterol Nebulizer [Active]; - PMHx: 02:40 colon cancer; COPD; Hernia; Hypertension; ao - PSHx: 02:40 None; ao - Immunization history:: Adult Immunizations up to date. - Social history:: Smoking status: Patient uses tobacco products, denies chronic smoking, but will smoke occasionally, Patient/guardian denies using alcohol, IV drugs. - Ebola Screening: : Patient negative for fever greater than or equal to 101.5 degrees Fahrenheit, and additional compatible Ebola Virus Disease symptoms Patient denies exposure to infectious person Patient denies travel to an Ebola-affected area in the 21 days before illness onset. Screenin:41 Abuse screen: Denies threats or abuse. Denies injuries from another. Nutritional ao screening: No deficits noted. Tuberculosis screening: No symptoms or risk factors identified. Fall Risk None identified. Assessment: 02:41 General: Appears distressed, uncomfortable, Behavior is anxious. Pain: Complains of ao pain in chest. Neuro: Level of Consciousness is awake, alert, obeys commands, Oriented to person, place, time, situation, Appropriate for age Moves all extremities. Full function. Cardiovascular: Rhythm is regular. Respiratory: Airway. Respiratory: Respiratory effort is labored, asymmetrical, Respiratory pattern is regular, symmetrical, Breath sounds with crackles Breath sounds are diminished bilaterally. GI: No signs and/or symptoms were reported involving the gastrointestinal system. Abdomen is non-distended. : No signs and/or symptoms were reported regarding the genitourinary system. EENT: No signs and/or symptoms were reported regarding the EENT system. Derm: Skin is intact, Skin temperature is warm. Musculoskeletal: Circulation, motion, and sensation intact. Range of motion:. 03:40 Reassessment: Patient appears in no apparent distress at this time. Patient and/or ao family updated on plan of care and expected duration. Pain level reassessed. Waiting on Dispo orders. 04:40 Reassessment: Patient appears in no apparent distress at this time. Patient and/or ao family updated on plan of care and expected duration. Pain level reassessed. Pt to be admitted to the hospital. 04:55 Reassessment: Patient appears in no apparent distress at this time. Patient and/or jb4 family updated on plan of care and expected duration. Pain level reassessed. Patient is alert, oriented x 3, equal unlabored respirations, skin warm/dry/pink. PT reports worsening of chest pain, provider notified, see MAR for orders. 05:39 Reassessment: Patient appears in no apparent distress at this time. Patient and/or ao family updated on plan of care and expected duration. Pain level reassessed. Patient to be admitted to the hospital. Dr Meléndez has assessed patient in the ED. Vital Signs: 02:30 BP 148 / 93; Pulse 132; Resp 32; Pulse Ox 84% on R/A; Pain 0/10; ao 02:40 Pulse Ox 96% on Nebulizer Mask; ao 03:18 BP 138 / 96; Pulse 131; Resp 18; Temp 98.3(O); Pulse Ox 96% on 3 lpm NC; ao 05:00 BP 121 / 86; Pulse 126; Resp 22; Pulse Ox 96% on R/A; jb4 05:41 BP 109 / 83; Pulse 124; Resp 20; Pulse Ox 94% on 3 lpm NC; ao ED Course: 02:34 Patient arrived in ED. ao 02:35 Isai Bedoya MD is Attending Physician. tw4 02:38 Triage completed. ao 02:41 Arm band placed on right wrist. Patient placed in an exam room, on a stretcher, on ao environmental monitoring technician, on pulse oximetry, Patient notified of wait time. 02:42 Patient has correct armband on for positive identification. child monitor on. Pulse ao ox on. NIBP on. 02:43 Porfirio Greenwood RN is Primary Nurse. ao 02:50 Maintain EMS IV. Dressing intact. Good blood return noted. Site clean \T\ dry. Gauge \T\ ao site: 22 G in the R FA. 02:50 First set of blood cultures drawn. ao 02:51 XRAY CXR (1 view) In Process Unspecified. EDMS 03:06 Second set of blood cultures drawn. ao 03:10 Inserted saline lock: 18 gauge forearm, using aseptic technique. Blood collected. ao 03:26 Monie Meléndez MD is Hospitalizing Provider. tw4 06:44 No provider procedures requiring assistance completed. Patient admitted, IV remains in ao place. Administered Medications: 02:50 Drug: DuoNeb (3:1) (2.5 mg - 0.5 mg) 3 ml Route: Nebulizer; ao 06:44 Follow up: Response: No adverse reaction ao 04:27 Drug: AZITHromycin 500 mg Route: IVPB; Infused Over: 1 hrs; Site: right forearm; ao 06:45 Follow up: IV Status: Completed infusion ao 04:28 Drug: Cefepime 1 grams Route: IVPB; Rate: 200 ml/hr; Infused Over: 30 mins; Site: right ao antecubital; 06:45 Follow up: Response: No adverse reaction; IV Status: Completed infusion ao 05:04 Drug: Zofran 4 mg Route: IVP; Site: right antecubital; jb4 06:45 Follow up: Response: No adverse reaction ao 05:06 Drug: morphine 4 mg {Note: Rass score 0, B/p 121/86.} Route: IVP; Site: right jb4 antecubital; 06:44 Follow up: Response: No adverse reaction; Pain is decreased; RASS: Alert and Calm (0) ao Outcome: 03:28 Decision to Hospitalize by Provider. tw4 06:44 Admitted to Tele accompanied by nurse, room 410, with chart, Report called to RN ao 06:44 Condition: stable 06:45 Patient left the ED. ao Signatures: Dispatcher [employer] EDPorfirio Asif RN RN ao Bryson, James, RN RN jb4 Isai Bedoya MD MD tw4 Corrections: (The following items were deleted from the chart) 03:19 03:18 BP 138 / 96; Pulse 131bpm; Resp 18bpm; Temp 98.3F Oral; ao ao 05:41 04:40 BP 109 / 83; Pulse 124bpm; Resp 20bpm; Pulse Ox 94% 3 lpm Nasal Cannula; ao ao
[2019-04-15 04:15] LABS: Blood Morphology Comment NOT SEEN (NOT SEEN); Platelet Estimate ADEQ
[2019-04-15] MEDS ORDERED: CEFEPIME 1 GM/100 ML BAG IV ONE (04:22)
[2019-04-15] MEDS ORDERED: NA CHLORIDE 0.9% 250 ML ONE (04:22)
[2019-04-15] MEDS ORDERED: AZITHROMYCIN 500 MG INJ IVPB ONE (04:22)
[2019-04-15] MEDS ORDERED: MORPHINE 4 MG/ML SYR ONE (05:01)
[2019-04-15] MEDS ORDERED: ONDANSETRON 4 MG/2 ML VIAL ONE (05:01)
[2019-04-15] MEDS ORDERED: ACETAMINOPHEN 500 MG TAB PO PRN (05:31)
[2019-04-15] MEDS ORDERED: Levofloxacin 750mg IV 750 MG/150 ML BAG IV SCH (06:00)
[2019-04-15] MEDS: METHYLPREDNISOLONE 125 MG INJ IV SCH ×2 (07:29→11:47)
[2019-04-15] MEDS: IPRATROPIUM BROM 0.5MG/2.5ML NEB SCH ×3 (07:40→19:45)
--- NOTE | 2019-04-15 07:49 | EKG ---
Test Date: 2019-04-15 Test Time: 02:37:28 Media Relations Director: MAYRA MEASUREMENT RESULTS: Intervals: Rate: 132 SD: 140 QRSD: 86 QT: 308 QTc: 456 Dexter: P: 63 SD: 140 QRS: 70 T: 212 INTERPRETIVE STATEMENTS: Sinus tachycardia with premature ventricular complexes Possible Left atrial enlargement Left ventricular hypertrophy with repolarization abnormality Abnormal ECG Compared to ECG 03/31/2019 01:33:30 Premature ventricular complex(es) now present Electronically Signed On 04-15-19 07:48:50 SIGNALING PROJECT ENGINEER by Hesham Jaime
--- NOTE | 2019-04-15 07:58 | P.HP ---
Certification for Inpatient Patient admitted to: Inpatient With expected LOS: >2 Midnights Patient will require the following post-hospital care: None Practitioner: I am a practitioner with admitting privileges, knowledge of patient current condition, hospital course, and medical plan of care. Services: Services provided to patient in accordance with Admission requirements found in Title 42 Section 412.3 of the Code of Federal Regulations Patient History Date of Service: 04/15/19 Reason for admission: Pneumonia History of Present Illness: Patient is a 58-year-old gentleman who comes into the hospital with coughing congestion for the last 7 days. He has been getting progressively more ill. He has history of tobacco use but denies any significant medical issues. He came into the ER for possible pneumonia. In the ER his chest x-ray did reveal a right pleural effusion. He also had distended JVP. However, there was no pulmonary edema noted on the chest x-ray. Patient may have pneumonia with COPD exacerbation with right-sided heart failure. He has orthopnea and PND. Patient will need admission for further workup for congestive heart failure and pneumonia. Allergies ibuprofen Allergy (Verified 04/15/19 06:36) Nausea/Vomiting Home Medications: Albuterol Neb [Proventil 0.083% Neb Soln] 1 amp IH Q6H PRN 04/15/19 Aspirin 1 tab PO DAILY 04/15/19 Diazepam [Valium] 0.5 tab PO DAILY PRN 04/15/19 Lisinopril [Zestril] 1 tab PO DAILY 04/15/19 Tiotropium Br/Olodaterol HCl [Stiolto Respimat Inhal Ramsey] 1 puff IH BID Tramadol HCl [Ultram] 2 tab PO Q8H PRN 04/15/19 Umeclidinium Brm/Vilanterol Tr [Anoro Ellipta 62.5-25 Mcg INH] 1 puff IH DAILY 04/15/19 - Past Medical/Surgical History Past Medical History: Patient denies medical history Past Surgical History: Patient denies surgical history - Family History Father Family History: Reviewed- Non-Contributory - Social History Smoking Status: Current every day smoker Alcohol use: No CD- Drugs: No Review of Systems 10-point ROS is otherwise unremarkable Physical Examination - Vital Signs Temperature: 98.3 F Blood Pressure: 109/83 Pulse: 124 Respirations: 20 Pulse Ox (%): 96 - Physical Exam General: Alert, In no apparent distress, Oriented x3 HEENT: Atraumatic, PERRLA, Mucous membr. moist/pink, EOMI, Sclerae nonicteric Neck: Supple, 2+ carotid pulse no bruit, No LAD, Without JVD or thyroid abnormality Respiratory: Clear to auscultation bilaterally, Normal air movement Cardiovascular: Regular rate/rhythm, Normal S1 S2, No murmurs Gastrointestinal: Normal bowel sounds, Soft and benign, Non-distended, No tenderness Musculoskeletal: No clubbing, No swelling, No tenderness Integumentary: No rashes Neurological: Normal gait, Normal speech, Normal strength at 5/5 x4 extr, Normal tone, Sensation intact, Cranial nerves 3-12 intact, Normal affect Lymphatics: No axilla or inguinal lymphadenopathy - Studies Laboratory Data (last 24 hrs) 04/15/19 02:40: PT 14.8 H, INR 1.27, APTT 29.6 04/15/19 02:40: WBC 14.7 H, Hgb 15.1, Hct 44.1, Plt Count 225 04/15/19 02:40: Sodium 139, Potassium 4.3, BUN 16, Creatinine 1.17, Glucose 98, Magnesium 2.1, Total Bilirubin 0.7, AST 40 H, ALT 52, Alkaline Phosphatase 141 H , Lipase 44 L Assessment & Plan - Problems (Diagnosis) (1) Pneumonia Current Visit: Yes Status: Acute Qualifiers: Pneumonia type: due to unspecified organism (2) Pleural effusion Current Visit: Yes Status: Acute (3) Right-sided congestive heart failure Current Visit: Yes Status: Acute Qualifiers: Heart failure chronicity: acute Qualified Code(s): I50.811 - Acute right heart failure - Plan 1. Continue with IV antibiotics 2. Awaiting sputum and blood culture 3. Repeat chest x-ray 4. CT scan of the chest if pneumonia is not improved to evaluate for postobstructive pneumonia 5. Pulmonary consultation 6. Continue with nebs as needed 7. O2 per protocol 8. Heplock IV 9. Repeat labs including CBC and renal function in a.m. 10. GI and DVT prophylaxis Discharge Plan: Home Plan to discharge in: Greater than 2 days - Advance Directives Does patient have a Living Will: No Does patient have a Durable POA for Healthcare: No - Code Status/Comfort Care Code Status Assessed: Yes Code Status: Full Code Critical Care: No Time Spent Managing PTS Care (In Minutes): 45
[2019-04-15] MEDS ORDERED: METOPROLOL TARTRATE 5 MG/5 ML INJ IV STA (07:59)
[2019-04-15] MEDS ORDERED: ALBUTEROL 2.5 MG/3 ML NEB SOL NEB SCH (08:00)
--- NOTE | 2019-04-15 08:11 | RAD REPORT ---
EXAM DESCRIPTION: RAD - Chest Single View - 04/15/2019 2:51 am CLINICAL HISTORY: SOB Chest pain. COMPARISON: Chest Single View dated 03/31/2019 FINDINGS: Portable technique limits examination quality. Emphysematous changes are present with ill-defined bibasilar lung opacities/infiltrate, greater on th e right. Small right pleural effusion noted. The heart is moderately enlarged in size. No displaced f ractures. IMPRESSION: Bibasilar pneumonia pattern is present, greater on the right with a small right pleural effusion.
[2019-04-15] MEDS: ENOXAPARIN 40 MG/0.4 ML SQ SCH (08:54)
[2019-04-15] MEDS: ASPIRIN 81 MG CHEWABLE TABLET PO SCH (08:54)
[2019-04-15] MEDS ORDERED: FUROSEMIDE 40 MG/4 ML VIAL IV SCH (09:00)
[2019-04-15] MEDS ORDERED: METOPROLOL TAR 50 MG TAB PO SCH (09:00)
[2019-04-15] MEDS: TRAMADOL HCL 50 MG TAB PO PRN ×2 (09:25→17:43)
--- NOTE | 2019-04-15 10:35 | CON ---
History Of Present Illness: Mr. Becerra came to the hospital because of shortness of breath and cou gh. He has been coughing for a week since he has been here in the hospital. The chest x-ray indicat es what looks like most likely pneumonia, although it could be a pleural effusion with atelectasis. The patient denies fevers or chills, but he is coughing up phlegm that is dark yellow or brown colore d. No blood. He notes his heart rate is fast. The patient does not have a history of any kind of h eart or lung trouble. He does take blood pressure medicines and has taken albuterol and Stiolto Resp imat in the past for obstructive lung disease. His outpatient medications are lisinopril, tramadol, diazepam, aspirin, Anoro Ellipta, albuterol and Stiolto. Denies having chest pain. There is no hist ory of diabetes. He was a cigarette smoker until yesterday, now he says he has quit. Alcohol use mo derate. No illegal drugs. Physical Examination: Constitutional: 6 feet tall, 171 pounds. HEENT: Normal. Lungs: Reveal all bronchial type breath sounds. I do not hear any vesicular breath sounds. No whee zing. Abdomen: Soft. Extremities: Trace edema. No cyanosis, clubbing. Impression: The patient probably has pneumonia. He has a very elevated N-terminal proBNP. This miriam t can be a strong indicator of heart failure, it can be abnormal for other reasons as well. I think an echocardiogram will be very helpful to tell how much of an issue his heart is in this process that is pending for sometime later today. LANDON Voice ID: [id number] Report ID: [id number]
--- NOTE | 2019-04-15 12:08 | ECHO ---
HEIGHT: 6 ft 0 in WEIGHT: 171 lb 11.2 oz DATE OF STUDY: 04/15/[address]: Monie Meléndez MD 2-DIMENSIONAL: YES M.MODE: YES DOPPLER: YES COLOR FLOW: YES TDS: NO PORTABLE: NO DEFINITY: NO BUBBLE STUDY: NO DIAGNOSIS: CONGESTIVE HEART FAILURE CARDIAC HISTORY: CATHERIZATION: NO SURGERY: NO PROSTHETIC VALVE: NO PACEMAKER: NO MEASUREMENTS (cm) DIASTOLIC (NORMALS) SYSTOLIC (NORMALS) IVSd 1.0 (0.6-1.2) LA Diam 2.9 (1.9-4.0) LVEF 18% LVIDd 6.1 (3.5-5.7) LVIDs 5.6 (2.0-3.5) %FS 8% LVPWd 1.0 (0.6-1.2) Ao Diam 3.5 (2.0-3.7) 2 DIMENSIONAL ASSESSMENT: RIGHT ATRIUM: DILATED LEFT ATRIUM: DILATED RIGHT VENTRICLE: DILATED LEFT VENTRICLE: DILATED TRICUSPID VALVE: NORMAL MITRAL VALVE: NORMAL PULMONIC VALVE: NORMAL AORTIC VALVE: NORMAL PERICARDIAL EFFUSION: NONE AORTIC ROOT: NORMAL LEFT VENTRICULAR WALL MOTION: SEVERE GLOBAL HYPOKINESIS. DOPPLER/COLOR FLOW: MILD MITRAL, TRICUSPID AND AORTIC REGURGITATION. ESTIMATED RIGHT VENTRICULAR SYSTOLIC PRESSURE 37 mmHg. MILD PULMONARY HYPERTENSION. COMMENTS: FOUR CHAMBER DILATATION. SEVERLY DEPRESSED LEFT VENTRICULAR EJECTION FRACTION. MILD MITRAL, TRICUSPID AND AORTIC REGURGITATION. MILD PULMONARY HYPERTENSION. TECHNOLOGIST: Joan STEELE
[2019-04-15] MEDS ORDERED: ARFORMOTEROL TARTRATE 15 MCG/2 ML VIAL.NEB NEB SCH (12:28)
--- NOTE | 2019-04-15 12:28 | P.CNS ---
Date of Consult: 04/15/19 Chief Complaint: Pneumonia History of Present Illness: Patient is 58 years of age, a heavy smoker is on Anoro at home he has been complaining of 2 weeks of shortness of breath on mild exertion in addition to some chest discomfort complaining of chronic cough he still continues to smoke heavily patient has not seen a dial printer before feeling better since admission was fine to have the pneumoniae right greater than the left kindly came to the emergency room 2 weeks ago and was discharged Allergies ibuprofen Allergy (Verified 04/15/19 06:36) Nausea/Vomiting Home Medications: Albuterol Neb [Proventil 0.083% Neb Soln] 1 amp IH Q6H PRN 04/15/19 Aspirin 1 tab PO DAILY 04/15/19 Diazepam [Valium] 0.5 tab PO DAILY PRN 04/15/19 Lisinopril [Zestril] 1 tab PO DAILY 04/15/19 Tiotropium Br/Olodaterol HCl [Stiolto Respimat Inhal [place]] 1 puff IH BID Tramadol HCl [Ultram] 2 tab PO Q8H PRN 04/15/19 Umeclidinium Brm/Vilanterol Tr [Anoro Ellipta 62.5-25 Mcg INH] 1 puff IH DAILY 04/15/19 - Past Medical/Surgical History -: COPD -: Hypertension - Family History Father Family History: Reviewed- Non-Contributory - Social History Smoking Status: Current some day smoker Alcohol use: No CD- Drugs: No Review of Systems 10-point ROS is otherwise unremarkable General: Weakness Respiratory: Cough, Shortness of Breath Cardiovascular: Chest Pain Physical Examination Temp Pulse Resp BP Pulse Ox 99.5 F 109 H 18 112/74 93 04/15/19 12:00 04/15/19 12:00 04/15/19 12:00 04/15/19 12:00 04/15/19 12:00 General: Alert, Oriented x3 HEENT: Atraumatic Neck: Supple Respiratory: Clear to auscultation bilaterally, Diminished Cardiovascular: No edema, Regular rate/rhythm, Normal S1 S2 Gastrointestinal: Normal bowel sounds, Soft and benign Laboratory Data (last 24 hrs) 04/15/19 02:40: PT 14.8 H, INR 1.27, APTT 29.6 04/15/19 02:40: WBC 14.7 H, Hgb 15.1, Hct 44.1, Plt Count 225 04/15/19 02:40: Sodium 139, Potassium 4.3, BUN 16, Creatinine 1.17, Glucose 98, Magnesium 2.1, Total Bilirubin 0.7, AST 40 H, ALT 52, Alkaline Phosphatase 141 H , Lipase 44 L - Problems (1) COPD exacerbation Current Visit: Yes Status: Acute Plan: Patient is 58 years of age admitted with a 2 week history of cough congestion worsening dyspnea and chest discomfort. He appears to have a right lower lobe pneumonia chemistries reviewed white count is elevated patient advised only take 1 inhaler eiher Stiolot or ANoro patient has been counseled to stop smoking patient would also need a regular CT scans of the chest rule out lung cancer (2) Congestive heart failure Current Visit: Yes Status: Acute Plan: Patient has severe congestive heart failure change to p.o. Lasix and spironolactone Vanessa to rule out coronary artery disease Qualifiers: Heart failure type: biventricular Qualified Code(s): I50.82 - Biventricular heart failure
[2019-04-15 12:44] LABS: Troponin I 0.04 ng/mL (0.0-0.045)
[2019-04-15] MEDS: predniSONE 20 MG TAB PO SCH ×2 (13:53→20:05)
[2019-04-15] MEDS: NICOTINE 21 MG/PAT TD SCH (13:53)
[2019-04-15] MEDS: VALSARTAN 80 MG TAB PO SCH (13:53)
--- NOTE | 2019-04-15 14:14 | P.PN ---
Date of Service: 04/15/19 Patient seen and examined. He states he was feeling much better this morning when I saw him. He is not wheezing. He has bibasilar rales. He has pneumonia and superimposed congestive heart failure and pleural effusion. Patient suspected to have biventricular failure. He is on bronchodilators. Orally LAsix Spironolactone Antibiotics-oral Levaquin. Patient seen by cardiology and pulmonary. Echocardiogram is pending.
[2019-04-15] MEDS: FORMOTEROL FUMARATE 20 MCG/2 ML VIAL.NEB IH SCH (19:45)
[2019-04-15] MEDS: METOPROLOL TAR 25 MG TAB PO SCH (20:05)
[2019-04-15] MEDS: SPIRONOLACTONE 25 MG TABLET PO SCH (20:05)
[2019-04-16 00:42] LABS: Urine Appearance CLOUDY; Urine Blood 3+ (NEG); Urine Color DK YELLOW; Urine Glucose NEGATIVE (NEG); Urine Protein 1+ (NEG); Urine Specific Gravity >=1.030 (1.005-1.030); Urine pH 5.5 (5.0-7.0)
[2019-04-16 00:43] LABS: Urine Bilirubin 1+ (NEG)
[2019-04-16 00:57] LABS: Urine Bacteria <20 /HPF (NONE SEEN); Urine Culture Reflex Order REFLEXED; Urine Mucus 1+ /HPF (NONE SEEN); Urine RBC 20-50 /HPF (NONE SEEN)
[2019-04-16] MEDS: IPRATROPIUM BROM 0.5MG/2.5ML NEB SCH ×4 (01:15→19:15)
[2019-04-16] MEDS: TRAMADOL HCL 50 MG TAB PO PRN ×3 (01:40→21:39)
[2019-04-16 04:44] LABS: Absolute Lymphocytes (CBC) 0.9 K/uL (0.7-4.9); Basophils % 0.1 % (0-1.3); Hematocrit 39.8 % (39.6-49.0); Lymphocytes % 5.6 % (15.3-44.8); MPV 11.3 fL (7.6-11.3); RBC Red Blood Cell Count 4.43 M/uL (4.33-5.43)
[2019-04-16 04:55] LABS: ALT/SGPT 44 U/L (12-78); Albumin 2.7 g/dL (3.4-5.0); Alkaline Phosphatase 110 U/L (45-117); BUN Blood Urea Nitrogen 22 mg/dL (7-18); Bicarbonate 31 mmol/L (21-32); Bilirubin Total 0.6 mg/dL (0.2-1.0); Glucose Level 139 mg/dL (74-106); HDL Cholesterol 41 mg/dL (40-60); LDL Cholesterol, Calculated 38 (<130); Magnesium 2.2 mg/dL (1.8-2.4); Phosphorus 3.7 mg/dL (2.5-4.9); Potassium 4.4 mmol/L (3.5-5.1); Protein, Total 6.7 g/dL (6.4-8.2); Sodium Level 137 mmol/L (136-145); Thyroid Stimulating Hormone 0.436 uIU/mL (0.360-3.740)
[2019-04-16 04:58] LABS: AST/SGOT < 15 U/L (15-37)
[2019-04-16 05:06] LABS: Blood Morphology Comment NOT SEEN (NOT SEEN); Platelet Estimate ADEQ; Toxic Granulation 1+; Urine White Blood Cell Casts OK
[2019-04-16] MEDS: FORMOTEROL FUMARATE 20 MCG/2 ML VIAL.NEB IH SCH ×2 (07:52→19:15)
[2019-04-16] MEDS: NICOTINE 21 MG/PAT TD SCH (08:06)
[2019-04-16] MEDS: FUROSEMIDE 40 MG TABLET PO SCH (08:09)
[2019-04-16] MEDS: ENOXAPARIN 40 MG/0.4 ML SQ SCH (08:09)
[2019-04-16] MEDS: levoFLOXacin 500 MG TAB PO SCH (08:09)
[2019-04-16] MEDS: METOPROLOL TAR 25 MG TAB PO SCH ×2 (08:10→21:38)
[2019-04-16] MEDS: VALSARTAN 80 MG TAB PO SCH (08:10)
[2019-04-16] MEDS: predniSONE 20 MG TAB PO SCH ×2 (08:10→21:39)
[2019-04-16] MEDS: SPIRONOLACTONE 25 MG TABLET PO SCH ×2 (08:10→21:38)
[2019-04-16] MEDS: ASPIRIN 81 MG CHEWABLE TABLET PO SCH (08:11)
--- NOTE | 2019-04-16 08:35 | P.PN ---
Subjective Date of Service: 04/16/19 Chief Complaint: Pneumonia and CHF Subjective: Improving (Patient is doing much better shortness of breath has improved) Review of Systems General: Weakness Respiratory: Shortness of Breath Physical Examination - Vital Signs Temperature: 96.9 F Blood Pressure: 112/82 Pulse: 103 Respirations: 17 Pulse Ox (%): 98 - Physical Exam General: Alert, Oriented x3 Respiratory: Clear to auscultation bilaterally, Diminished Cardiovascular: No edema, Regular rate/rhythm Assessment & Plan - Problems (Diagnosis) (1) COPD exacerbation Current Visit: Yes Status: Acute Plan: Patient admitted with COPD exacerbation doing better can be discharged home white count is still elevated vital signs stable plan to discharge home on low- dose prednisone 10 mg twice a day for 10 days continue with bronchodilators and an antibiotic (2) Congestive heart failure Current Visit: Yes Status: Acute Plan: Severe congestive heart failure seen by Cardiology Qualifiers: Heart failure type: biventricular Qualified Code(s): I50.82 - Biventricular heart failure
[2019-04-16] MEDS ORDERED: lisinopriL 10 MG TAB PO SCH (09:00)
[2019-04-16] MEDS ORDERED: METOPROLOL TAR 50 MG TAB PO SCH (09:00)
--- NOTE | 2019-04-16 12:28 | P.PN ---
Subjective Date of Service: 04/16/19 Chief Complaint: Pneumonia and CHF Subjective: No new changes Patient states he feels much better today. He denies any shortness of breath or palpitation. He mentioned he has tachycardia at baseline. Echocardiogram results reviewed. Physical Examination - Vital Signs Temperature: 97.9 F Blood Pressure: 104/74 Pulse: 96 Respirations: 17 Pulse Ox (%): 100 - Physical Exam General: Alert, In no apparent distress, Oriented x3 HEENT: Mucous membr. moist/pink Neck: JVD not distended Respiratory: Clear to auscultation bilaterally, Normal air movement Cardiovascular: No edema, Regular rate/rhythm, Normal S1 S2 Gastrointestinal: Soft and benign, No tenderness Musculoskeletal: No swelling Integumentary: No rashes Neurological: Normal speech, Normal strength at 5/5 x4 extr Assessment And Plan - Current Problems (Diagnosis) (1) Acute systolic heart failure Status: Acute (2) COPD exacerbation Status: Acute (3) Pleural effusion Status: Acute (4) Pneumonia Status: Acute Qualifiers: Pneumonia type: due to unspecified organism - Plan EF noted to be 20%. Patient seen by cardiology and pulmonology. He is prescribed Coreg, Entresto and Lasix. Continue antibiotics and bronchodilators.
--- NOTE | 2019-04-16 13:50 | PN ---
Date of Progress Note: 04/15/2019 The patient was admitted and seen on 04/15/[address] Pinon and Dr. Jaime. He had come in with a COPD, pneumonia, was found to have new onset congestive heart failure with an ejection fraction of 18 %. He has become asymptomatic since admission. He is not having any shortness of breath, PND, ortho pnea, pedal edema, palpitations, or syncope. He is in sinus rhythm. His other issues include COPD a nd hypertension. He is now on valsartan, beta blockers, and diuretic. I gave him a prescription for Entresto to start tomorrow, Lasix, carvedilol. He should be on aspirin as well. He can go home whe never it is okay with Dr. Pinon, and I will see him in the very near future. He will need a cathete rization eventually, need repeat echocardiogram eventually and plan defibrillators if his ejection fr action remains low. BON/TODD Voice ID: [id number] Report ID: [id number]
[2019-04-16] MEDS: ALBUTEROL 2.5 MG/3 ML NEB SOL NEB PRN ×2 (15:38→23:25)
[2019-04-16] MEDS ORDERED: LORazepam 2 MG/ML VIAL IV ONE (16:00)
[2019-04-16] MEDS: MORPHINE 2 MG/ML SYR IV PRN (18:48)
--- NOTE | 2019-04-16 18:56 | RAD REPORT ---
EXAM DESCRIPTION: RAD - Chest Single View - 04/16/2019 6:42 pm CLINICAL HISTORY: SOB Chest pain. COMPARISON: Chest Single View dated 04/15/2019; Chest Single View dated 03/31/2019 FINDINGS: Portable technique limits examination quality. Right basilar infiltrate is again seen, appearing unchanged since comparative study. COPD is present. Small right pleural effusion is noted. The heart is moderately enlarged size. No displaced fractures . IMPRESSION: Stable right basilar infiltrate noted.
[2019-04-16] MEDS: DIAZEPAM 5 MG TABLET PO PRN (21:40)
[2019-04-17] MEDS: MORPHINE 2 MG/ML SYR IV PRN ×2 (00:42→06:14)
[2019-04-17] MEDS: IPRATROPIUM BROM 0.5MG/2.5ML NEB SCH ×4 (01:40→19:35)
[2019-04-17 07:01] VITALS: BMI 22.8
[2019-04-17] MEDS: FORMOTEROL FUMARATE 20 MCG/2 ML VIAL.NEB IH SCH ×2 (07:55→19:35)
[2019-04-17] MEDS: DIAZEPAM 5 MG TABLET PO PRN (08:44)
[2019-04-17] MEDS: ENOXAPARIN 40 MG/0.4 ML SQ SCH (08:45)
[2019-04-17] MEDS: TRAMADOL HCL 50 MG TAB PO PRN ×2 (08:45→21:41)
[2019-04-17] MEDS: METOPROLOL TAR 25 MG TAB PO SCH ×2 (08:46→21:42)
[2019-04-17] MEDS: VALSARTAN 80 MG TAB PO SCH (08:46)
[2019-04-17] MEDS: predniSONE 20 MG TAB PO SCH ×2 (08:47→21:41)
[2019-04-17] MEDS: SPIRONOLACTONE 25 MG TABLET PO SCH ×2 (08:47→21:41)
[2019-04-17] MEDS: FUROSEMIDE 40 MG TABLET PO SCH (08:47)
[2019-04-17] MEDS: levoFLOXacin 500 MG TAB PO SCH (08:47)
[2019-04-17] MEDS: ASPIRIN 81 MG CHEWABLE TABLET PO SCH (08:47)
[2019-04-17] MEDS: NICOTINE 21 MG/PAT TD SCH (08:48)
[2019-04-17 09:07] LABS: Absolute Lymphocytes (CBC) 1.8 K/uL (0.7-4.9); Basophils % 0.3 % (0-1.3); Hematocrit 42.6 % (39.6-49.0); Lymphocytes % 11.4 % (15.3-44.8); RBC Red Blood Cell Count 4.74 M/uL (4.33-5.43)
[2019-04-17 10:11] LABS: Platelet Estimate ADEQ; Platelets, Giant PRESENT; Urine White Blood Cell Casts OK
[2019-04-17 10:12] LABS: Blood Morphology Comment NOT SEEN (NOT SEEN)
[2019-04-17] MEDS: ONDANSETRON 4 MG/2 ML VIAL IV PRN (11:46)
--- NOTE | 2019-04-17 15:50 | P.PN ---
Subjective Date of Service: 04/17/19 Chief Complaint: Pneumonia and CHF He was agitated and quite anxious yesterday. He requested for pain medications and was also given diazepam this morning. Patient states he was feeling better at the time of my examination today. He denies any shortness of breath or palpitation. Physical Examination - Vital Signs Temperature: 97.3 F Blood Pressure: 132/59 Pulse: 69 Respirations: 17 Pulse Ox (%): 94 - Physical Exam General: Alert, In no apparent distress, Oriented x3 HEENT: Mucous membr. moist/pink Neck: JVD not distended Respiratory: Clear to auscultation bilaterally, Normal air movement Cardiovascular: No edema, Regular rate/rhythm Gastrointestinal: Soft and benign, No tenderness Musculoskeletal: No swelling, No erythema Integumentary: No rashes Neurological: Normal speech, Normal strength at 5/5 x4 extr Assessment And Plan - Current Problems (Diagnosis) (1) Acute systolic heart failure Current Visit: Yes Status: Acute (2) COPD exacerbation Current Visit: Yes Status: Acute (3) Pleural effusion Current Visit: Yes Status: Acute (4) Pneumonia Current Visit: Yes Status: Acute Qualifiers: Pneumonia type: due to unspecified organism (5) Acute renal failure Current Visit: Yes Status: Acute - Plan Continue Coreg. Patient appears compensated for CHF. Will decrease Lasix dose to 20 mg daily. Patient states he cannot afford Entresto. Will start oral Lisinopril. Patient still has leukocytosis. Procalcitonin is borderline elevated Continue antibiotics and bronchodilators. Ativan p.r.n. for anxiety.
[2019-04-17] MEDS ORDERED: PROMETHAZINE INJ 25 MG/ML AMP IV ONE (16:00)
[2019-04-18] MEDS: MORPHINE 2 MG/ML SYR IV PRN (00:31)
[2019-04-18] MEDS: IPRATROPIUM BROM 0.5MG/2.5ML NEB SCH ×2 (01:10→09:58)
[2019-04-18 04:21] VITALS: O2SAT 94
[2019-04-18 06:33] LABS: Absolute Lymphocytes (CBC) 1.3 K/uL (0.7-4.9); Basophils % 0.3 % (0-1.3); Hematocrit 44.6 % (39.6-49.0); Lymphocytes % 10.8 % (15.3-44.8); MPV 11.3 fL (7.6-11.3); RBC Red Blood Cell Count 4.99 M/uL (4.33-5.43)
[2019-04-18 06:42] LABS: Potassium 4.9 mmol/L (3.5-5.1)
[2019-04-18] MEDS ORDERED: FUROSEMIDE 20 MG TABLET PO SCH (09:00)
[2019-04-18] MEDS: FORMOTEROL FUMARATE 20 MCG/2 ML VIAL.NEB IH SCH (09:58)
[2019-04-18] MEDS: ONDANSETRON 4 MG/2 ML VIAL IV PRN (10:16)
[2019-04-18] MEDS: DIAZEPAM 5 MG TABLET PO PRN (10:18)
[2019-04-18] MEDS: levoFLOXacin 500 MG TAB PO SCH (10:19)
[2019-04-18] MEDS: SPIRONOLACTONE 25 MG TABLET PO SCH (10:20)
[2019-04-18] MEDS: ASPIRIN 81 MG CHEWABLE TABLET PO SCH (10:20)
[2019-04-18] MEDS: VALSARTAN 80 MG TAB PO SCH (10:21)
[2019-04-18] MEDS: METOPROLOL TAR 25 MG TAB PO SCH (10:21)
[2019-04-18] MEDS: ENOXAPARIN 40 MG/0.4 ML SQ SCH (10:22)
[2019-04-18] MEDS: predniSONE 20 MG TAB PO SCH (10:22)
[2019-04-18] MEDS: NICOTINE 21 MG/PAT TD SCH (10:23)
--- NOTE | 2019-04-18 11:27 | P.DS ---
Admission Date: 04/15/19 Discharge Date: 04/18/19 Disposition: ROUTINE DISCHARGE Discharge Condition: FAIR Reason for Admission: Pneumonia and CHF - Problems (1) Acute systolic heart failure Current Visit: Yes Status: Acute (2) COPD exacerbation Current Visit: Yes Status: Acute (3) Pleural effusion Current Visit: Yes Status: Acute (4) Pneumonia Current Visit: Yes Status: Acute Qualifiers: Pneumonia type: due to unspecified organism (5) Acute renal failure Current Visit: Yes Status: Acute Brief History of Present Illness: 58-year-old gentleman, smoker with history of COPD presented to the emergency department with progressive shortness of breath, cough and congestion of 7 days duration. His symptoms were also associated with orthopnea. Chest x-ray in the ED suggested pleural effusion. Initial troponin negative. Lactic acid was mildly elevated. He also had leukocytosis and tachycardia meeting criteria for sepsis. The patient was admitted for further evaluation and management of heart failure, COPD exacerbation and pneumonia Hospital Course: Patient was diuresed with IV Lasix, treated for pneumonia with IV antibiotics and placed on bronchodilators and IV steroids. Troponin trended came back negative. Echocardiogram demonstrated EF of 20%. Patient was newly diagnosed with acute systolic heart failure. He was evaluated by cardiology and pulmonology. The patient was placed on metoprolol, Entresto, Aldactone and oral lasix. He mentioned he cannot afford Entresto. He was receiving valsartan during the hospital stay. The patient will be discharged with Valsartan instead of Entresto. His respiratory condition improved with treatment. Patient was weaned off oxygen, IV steroids transition to oral prednisone. The patient had a septic picture. He received antibiotic treatment for pneumonia and antibiotics scale down to oral Levaquin as he improved clinically. Leukocytosis is almost resolved. The patient states he feels much better today and currently has no complain. States that his breathing is much better today. He is deemed clinically stable for discharge. He is made aware he needs to follow with cardiology for further management regarding his severe heart failure. He is prescribed oral Levaquin to continue treatment for pneumonia. Vital Signs/Physical Exam: Temp Pulse Resp BP Pulse Ox 97.2 F 97 H 16 108/80 95 04/18/19 08:00 04/18/19 10:21 04/18/19 08:00 04/18/19 10:04/18/19 08:00 General: Alert, In no apparent distress HEENT: Mucous membr. moist/pink Neck: Supple, JVD not distended Respiratory: Clear to auscultation bilaterally, Normal air movement Cardiovascular: No edema, Regular rate/rhythm, Normal S1 S2 Gastrointestinal: Soft and benign, No tenderness Laboratory Data at Discharge: WBC 11.8 K/uL (4.3-10.9) H D 04/18/19 06:07 Hgb 14.8 g/dL (13.6-17.9) 04/18/19 06:07 Hct 44.6 % (39.6-49.0) 04/18/19 06:07 Plt Count 247 K/uL (152-406) D 04/18/19 06:07 PT 14.8 SECONDS (9.5-12.5) H 04/15/19 02:40 INR 1.27 04/15/19 02:40 APTT 29.6 SECONDS (24.3-36.9) 04/15/19 02:40 Sodium 136 mmol/L (136-145) 04/18/19 06:07 Potassium 4.9 mmol/L (3.5-5.1) 04/18/19 06:07 BUN 31 mg/dL (7-18) H 04/18/19 06:07 Creatinine 1.27 mg/dL (0.55-1.3) 04/18/19 06:07 Glucose 112 mg/dL (74-106) H 04/18/19 06:07 Phosphorus 3.7 mg/dL (2.5-4.9) 04/16/19 03:40 Magnesium 2.2 mg/dL (1.8-2.4) 04/16/19 03:40 Total Bilirubin 0.6 mg/dL (0.2-1.0) 04/16/19 03:40 AST < 15 U/L (15-37) L 04/16/19 03:40 ALT 44 U/L (12-78) 04/16/19 03:40 Alkaline Phosphatase 110 U/L (45-117) 04/16/19 03:40 Troponin I 0.03 ng/mL (0.0-0.045) 04/15/19 19:10 Triglycerides 65 mg/dL (<150) 04/16/19 03:40 Cholesterol 92 mg/dL (<200) 04/16/19 03:40 HDL Cholesterol 41 mg/dL (40-60) 04/16/19 03:40 Cholesterol/HDL Ratio 2.24 04/16/19 03:40 Lipase 44 U/L (73-393) L 04/15/19 02:40 Home Medications: Albuterol Neb [Proventil 0.083% Neb Soln] 1 amp IH Q6H PRN 04/15/19 Aspirin 1 tab PO DAILY 04/15/19 Diazepam [Valium] 0.5 tab PO DAILY PRN 04/15/19 Tramadol HCl [Ultram] 2 tab PO Q8H PRN 04/15/19 Umeclidinium Brm/Vilanterol Tr [Anoro Ellipta 62.5-25 Mcg INH] 1 puff IH DAILY 04/15/19 Furosemide [Lasix] 40 mg PO DAILY 30 Days tab 04/16/19 Formoterol Fumarate [Perforomist*] 20 mcg IH BIDRESP #60 vial.neb 04/18/19 Metoprolol Tartrate [Lopressor*] 25 mg PO BID #60 tab 04/18/19 Nicotine [Nicoderm*] 21 mg TD DAILY #30 patch.td24 04/18/19 Spironolactone [Aldactone*] 25 mg PO BID #60 tab 04/18/19 Valsartan 80 mg PO DAILY #30 tablet 04/18/19 levoFLOXacin [Levaquin*] 500 mg PO DAILY #4 tab 04/18/19 predniSONE [Prednisone*] 20 mg PO BID #6 tab 04/18/19 New Medications: Formoterol Fumarate [Perforomist*] 20 mcg IH BIDRESP #60 vial.neb Furosemide [Lasix] 40 mg PO DAILY 30 Days tab levoFLOXacin [Levaquin*] 500 mg PO DAILY #4 tab Metoprolol Tartrate [Lopressor*] 25 mg PO BID #60 tab Nicotine [Nicoderm*] 21 mg TD DAILY #30 patch.td24 predniSONE [Prednisone*] 20 mg PO BID #6 tab Spironolactone [Aldactone*] 25 mg PO BID #60 tab Valsartan 80 mg PO DAILY #30 tablet Patient Discharge Instructions: Patient to take either Anoro or Stiolto Diet: AHA Activity: Ad jethro Followup: Kael Schofield MD [ACTIVE - CAN ADMIT] - Sahil Madison MD [ACTIVE - CAN ADMIT] - 04/27/19 2:30 pm (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
--- NOTE | 2019-04-18 22:49 | PN ---
Date of Progress Note: 04/17/2019 Mr. Becerra was admitted with acute onset systolic congestive heart failure with an ejection fractio n of 18%, COPD, pneumonia, bilateral pleural effusion, renal insufficiency. He has improved on Lasix , lisinopril, and beta-mat. We are going to start him on Entresto, but apparently patient stated he cannot afford it. So, he is on his on lisinopril, Lasix, beta-mat for now. He can go home w henever it is okay with primary care physician. I am going to make arrangements for him to have an o utpatient appointment and set up a heart catheterization. Future echocardiogram in about 3 months. Adjust his beta-mat dose and consider him for defibrillator down the road. BON/TODD Voice ID: [id number] Report ID: [id number]
[2019-04-22 13:04] VITALS: BP 104/74; TEMP 97.9
== END 2019-04-18 14:30 | disposition home or self-care (01) | DRG 291 ==
LOC: ER 02:23 → ERHOLD 05:31 → 4TH 06:14
PROVIDERS: ADMIT Hospitalist; ATTEND Internal Medicine
DX: I50.21 Acute systolic (congestive) heart failure (principal); J18.9 Pneumonia, unspecified organism; J44.0 Chronic obstructive pulmonary disease with (acute) lower respiratory infection; J90 Pleural effusion, not elsewhere classified; N17.9 Acute kidney failure, unspecified; J44.1 Chronic obstructive pulmonary disease with (acute) exacerbation; I11.0 Hypertensive heart disease with heart failure; F17.210 Nicotine dependence, cigarettes, uncomplicated; I50.811 Acute right heart failure; I50.82 Biventricular heart failure
CPT/HCPCS: 36415; 71045; 80048; 80053; 80061; 80076; 81001; 82550; 82553; 83605; 83690; 83735; 83880; 84100; 84145; 84439; 84443; 84484; 85025; 85610; 85730; 87040; 87086; 87088; 93005; 93306; 94640; 94760; 96365; 96366; 96368; 96375; 99285; J0456; J0692; J1650; J1940; J2270; J2405; J2550; J2930; J7030; J7512

== ENCOUNTER 2019-05-11 07:57 | Emergency (ER) | payer OTHER ==
[2019-05-11 08:23] LABS: Absolute Lymphocytes (CBC) 1.8 K/uL (0.7-4.9); Basophils % 0.8 % (0-1.3); Hematocrit 48.6 % (39.6-49.0); Lymphocytes % 19.7 % (15.3-44.8); MPV 10.6 fL (7.6-11.3); RBC Red Blood Cell Count 5.62 M/uL (4.33-5.43)
[2019-05-11] MEDS ORDERED: LEVALBUTEROL 1.25 MG/3 ML NEB ONE (08:28)
[2019-05-11] MEDS ORDERED: METHYLPREDNISOLONE 125 MG INJ ONE (08:28)
[2019-05-11 08:29] LABS: Protime INR 1.08
[2019-05-11] MEDS ORDERED: DIAZEPAM 5 MG TABLET ONE (08:35)
[2019-05-11 08:42] LABS: BUN Blood Urea Nitrogen 8 mg/dL (7-18); Bicarbonate 27 mmol/L (21-32); Glucose Level 95 mg/dL (74-106); NT PRO-BNP 14837 pg/mL (<125); Potassium 4.4 mmol/L (3.5-5.1); Sodium Level 139 mmol/L (136-145); Troponin (Emerg Dept Use Only) < 0.02 ng/mL (0.0-0.045)
[2019-05-11] MEDS ORDERED: FUROSEMIDE 40 MG/4 ML VIAL ONE (09:22)
--- NOTE | 2019-05-11 09:33 | RAD REPORT ---
EXAM DESCRIPTION: CT - Chest For Pe Angio - 05/11/2019 9:07 am CLINICAL HISTORY: Shortness of breath COMPARISON: None. TECHNIQUE: Dynamically enhanced axial 3 mm thick images of the chest were obtained during administra tion of <100> mL Isovue 370 IV contrast. Coronal and oblique reconstruction images were generated and reviewed. Exam utilizes a protocol for optimal evaluation of pulmonary arterial tree. Maximum intensity projections 3D imaging was utilized All CT scans are performed using dose optimization technique as appropriate and may include automated exposure control or mA/KV adjustment according to patient size. FINDINGS: A pulmonary embolus is not seen. A thoracic aortic aneurysm is not noted. A pleural effusion is not seen. A pericardial effusion is not seen. A lung consolidation is not present. Centrilobular and paraseptal emphysema A 2 cm left adrenal lesion IMPRESSION: Negative for a pulmonary embolism. COPD 2 cm left adrenal lesion. Nonemergent MRI could be obtained to assess for an adenoma
--- NOTE | 2019-05-11 09:33 | RAD REPORT ---
EXAM DESCRIPTION: Javy Single View05/11/2019 8:32 am CLINICAL HISTORY: Shortness of breath COMPARISON: March 2019 FINDINGS: Lungs are moderately hyperaerated The lungs appear clear of acute infiltrate. The heart is normal size IMPRESSION: COPD without visualization acute abnormality
--- NOTE | 2019-05-11 10:01 | ER ---
Nurse's Notes [facility] Name: Jc Becerra Jr Age: 59 yrs Sex: Male : 1960 Arrival Date: 05/11/2019 Time: 08:01 Bed 6 Private MD: Diagnosis: Systolic (congestive) heart failure;Chronic obstructive pulmonary disease, unspecified;Anxiety disorder, unspecified Presentation: 05/11 07:53 Presenting complaint: EMS states: called out for dyspnea since last night. On arrival sv pt was 92% RA, EKG-T wave inversion; right sided EKG was done and showed no OH. SBP 116. Transition of care: patient was not received from another setting of care. Onset of symptoms was May 10, 2019. Risk Assessment: Do you want to hurt yourself or someone else? Patient reports no desire to harm self or others. Initial Sepsis Screen: Does the patient meet any 2 criteria? HR > 90 bpm. No. Patient's initial sepsis screen is negative. Does the patient have a suspected source of infection? No. Patient's initial sepsis screen is negative. Care prior to arrival: IV initiated. 20 GA, in the right antecubital area, Glucose check: 137 Oxygen administered. via nasal cannula. 07:53 Method Of Arrival: EMS: [facility] 07:53 Acuity: TESFAYE 3 sv Triage Assessment: 07:53 General: Appears in no apparent distress. uncomfortable, well developed, Behavior is sv cooperative, appropriate for age, anxious. Pain: Denies pain. Neuro: Level of Consciousness is awake, alert, obeys commands, Oriented to person, place, time, situation, Moves all extremities. Full function Gait is steady, Speech is normal. Cardiovascular: Patient's skin is warm and dry. Pulses are 3+ in right radial artery and left radial artery Rhythm is sinus tachycardia. Respiratory: Reports shortness of breath at rest on exertion Airway is patent Respiratory effort is even, unlabored, Respiratory pattern is regular, symmetrical, Onset: The symptoms/episode began/occurred yesterday, the patient has moderate shortness of breath. Derm: Skin is pink, warm \T\ dry. Musculoskeletal: Range of motion: intact in all extremities. Historical: - Allergies: 08:20 Ibuprofen; sv - Home Meds: 08:20 Albuterol Inhl [Active]; lisinopril 40 mg Oral tab once daily [Active]; tramadol 50 mg sv Oral tab 2 tabs every 8 hours [Active]; Coreg Oral [Active]; Lasix Oral [Active]; Metoprolol Tartrate Oral [Active]; Aldactone Oral [Active]; valsartan oral oral [Active]; - PMHx: 08:20 colon cancer; COPD; Hernia; Hypertension; CHF; Pneumonia; sv - PSHx: 08:20 None; sv - Immunization history:: Adult Immunizations up to date. - Social history:: Smoking status: Patient uses tobacco products. - Family history:: not pertinent. - Ebola Screening: : No symptoms or risks identified at this time. - Hospitalizations: : The patient was recently seen at [facility]. Screenin:00 Abuse screen: Denies threats or abuse. Denies injuries from another. Nutritional sv screening: No deficits noted. Tuberculosis screening: No symptoms or risk factors identified. Fall Risk None identified. Assessment: 08:35 Reassessment: Patient appears in no apparent distress at this time. No changes from sv previously documented assessment. Patient and/or family updated on plan of care and expected duration. Pain level reassessed. Patient is alert, oriented x 3, equal unlabored respirations, skin warm/dry/pink. 09:33 Reassessment: Patient appears in no apparent distress at this time. No changes from sv previously documented assessment. Patient and/or family updated on plan of care and expected duration. Pain level reassessed. Patient is alert, oriented x 3, equal unlabored respirations, skin warm/dry/pink. 10:23 Reassessment: Patient appears in no apparent distress at this time. Patient and/or sv family updated on plan of care and expected duration. Pain level reassessed. Patient is alert, oriented x 3, equal unlabored respirations, skin warm/dry/pink. Patient states feeling better. Patient states symptoms have improved. Vital Signs: 07:57 BP 109 / 80; Pulse 105; Resp 18; Temp 98.1; Pulse Ox 98% ; sv 08:57 BP 111 / 73; Pulse 103 MON; Resp 19; Pulse Ox 98% on Nebulizer Mask; sv 10:00 BP 115 / 82; Pulse 100; Resp 19; Pulse Ox 98% ; sv 08:57 Sinus tachycardia sv ED Course: 07:53 Maintain EMS IV. Dressing intact. Good blood return noted. Site clean \T\ dry. Gauge \T\ sv site: 20G R AC. 08:00 Patient has correct armband on for positive identification. Placed in gown. Bed in low sv position. Call light in reach. Side rails up X2. Adult w/ patient. clipper machine operator on. Pulse ox on. NIBP on. Door closed. Warm blanket given. Head of bed elevated. 08:01 Patient arrived in ED. sv 08:01 Hortensia Linares RN is Primary Nurse. sv 08:01 Truman Monge MD is Attending Physician. rn 08:15 Initial lab(s) drawn, by pa, sent to lab. First set of blood cultures drawn EKG done, ms by seal delivery vehicle team technician. reviewed by Truman Monge MD. 08:19 Triage completed. sv 08:21 Arm band placed on. sv 08:31 XRAY CXR (1 view) In Process Unspecified. EDMS 08:36 EKG done, by seal delivery vehicle team technician. reviewed by Truman Monge MD. at1 09:07 CT Chest For PE Angio In Process Unspecified. EDMS 10:23 No provider procedures requiring assistance completed. IV discontinued, intact, sv bleeding controlled, No redness/swelling at site. Pressure dressing applied. Administered Medications: 08:35 Drug: SOLU-Medrol 125 mg Route: IVP; Site: right antecubital; sv 09:33 Follow up: Response: No adverse reaction sv 08:35 Drug: Valium 5 mg Route: PO; sv 09:33 Follow up: Response: No adverse reaction sv 08:36 Drug: Xopenex (3) 1.25 mg Route: Inhalation; sv 09:33 Drug: Lasix 40 mg Route: IVP; Site: right antecubital; sv Output: 10:20 Urine: 800ml (Voided); Total: 800ml. sv Outcome: 10:00 Discharge ordered by . rn 10:23 Patient left the ED. sv 10:23 Discharged to home ambulatory, with family. sv 10:23 Condition: stable 10:23 Discharge instructions given to patient, Instructed on discharge instructions, follow up and referral plans. CHF teaching. Demonstrated understanding of instructions, follow-up care, CHF teaching Prescriptions given X 1. Signatures: Dispatcher [employer] EDMS Milagros, Hortensia, Rebecca Presley RN, ms, Roman, MD MD rn Inderjit, Argenis, machine deicer element winder EKG Tat1
--- NOTE | 2019-05-11 10:02 | EDPHYS ---
Physician Documentation [facility] Name: Jc Becerra Jr Age: 59 yrs Sex: Male : 1960 Arrival Date: 05/11/2019 Time: 08:01 Bed 6 Private MD: ED Physician Truman Monge HPI: 05/11 08:26 This 59 yrs old Male presents to ER via EMS with complaints of Breathing rn Difficulty. 08:26 The patient has shortness of breath at rest, with light activity. Onset: The rn symptoms/episode began/occurred yesterday. Duration: The symptoms are intermittent. The patient's shortness of breath is aggravated by exertion, is alleviated by nothing. Severity of symptoms: At their worst the symptoms were moderate in the emergency department the symptoms are unchanged. The patient has experienced similar episodes in the past. The patient has been recently been admitted at [facility]. Reports trouble breathing since yesterday, recently admitted to hospital for CHF and pneumonia, no fever, + cough, with generalized weakness. Reports felt better after hospitalization, now feeling bad again, completed abx. Also having a few seconds of chest pain, intermittent, non-radiating. . Historical: - Allergies: 08:20 Ibuprofen; sv - Home Meds: 08:20 Albuterol Inhl [Active]; lisinopril 40 mg Oral tab once daily [Active]; tramadol 50 mg sv Oral tab 2 tabs every 8 hours [Active]; Coreg Oral [Active]; Lasix Oral [Active]; Metoprolol Tartrate Oral [Active]; Aldactone Oral [Active]; valsartan oral oral [Active]; - PMHx: 08:20 colon cancer; COPD; Hernia; Hypertension; CHF; Pneumonia; sv - PSHx: 08:20 None; sv - Immunization history:: Adult Immunizations up to date. - Social history:: Smoking status: Patient uses tobacco products. - Family history:: not pertinent. - Ebola Screening: : No symptoms or risks identified at this time. - Hospitalizations: : The patient was recently seen at [facility]. ROS: 08:26 Constitutional: Negative for fever, chills, and weight loss, Eyes: Negative for injury, rn pain, redness, and discharge, Cardiovascular: + chest pain, neg for palpitations Respiratory: + sob and cough Abdomen/GI: Negative for abdominal pain, nausea, vomiting, diarrhea, and constipation, MS/Extremity: Negative for injury and deformity, Skin: Negative for injury, rash, and discoloration, Neuro: Negative for headache, numbness, tingling, and seizure. Exam: 08:26 Constitutional: This is a well developed, well nourished patient who is awake, alert, rn and in no acute distress. Head/Face: Normocephalic, atraumatic. Eyes: Pupils equal round and reactive to light, extra-ocular motions intact. Lids and lashes normal. Conjunctiva and sclera are non-icteric and not injected. Cornea within normal limits. Periorbital areas with no swelling, redness, or edema. ENT: dry MM, no stridor Cardiovascular: Tachycardic, regular Respiratory: + mild tachypnea with shallow breaths and faint exp wheezing Abdomen/GI: soft, non-tender MS/ Extremity: Pulses equal, no cyanosis. Neurovascular intact. Full, normal range of motion. Equal circumference. Neuro: Awake and alert, GCS 15, oriented to person, place, time, and situation. Cranial nerves II-XII grossly intact. Motor strength 5/5 in all extremities. Sensory grossly intact. Vital Signs: 07:57 BP 109 / 80; Pulse 105; Resp 18; Temp 98.1; Pulse Ox 98% ; sv 08:57 BP 111 / 73; Pulse 103 MON; Resp 19; Pulse Ox 98% on Nebulizer Mask; sv 10:00 BP 115 / 82; Pulse 100; Resp 19; Pulse Ox 98% ; sv 08:57 Sinus tachycardia sv MDM: 08:01 Patient medically screened. rn 08:29 ED course: Pt also with moderate to severe anxiety, requesting anxiety medication. rn 09:57 Differential diagnosis: CHF exacerbation, Chronic Obstructive Pulmonary Disease rn pneumonia, Pneumothorax pulmonary edema, Pulmonary Embolism anxiety. Data reviewed: vital signs, nurses notes, lab test result(s), EKG, radiologic studies, CT scan, plain films, and as a result, I will discharge patient. Counseling: I had a detailed discussion with the patient and/or guardian regarding: the historical points, exam findings, and any diagnostic results supporting the discharge/admit diagnosis, lab results, radiology results, the need for outpatient follow up, to return to the emergency department if symptoms worsen or persist or if there are any questions or concerns that arise at home. Response to treatment: the patient's symptoms have markedly improved after treatment, and as a result, I will discharge patient. Special discussion: I discussed with the patient/guardian in detail that at this point there is no indication for admission to the hospital. It is understood, however, that if the symptoms persist or worsen the patient needs to return immediately for re-evaluation. ED course: Labs and imaging improved compared to hospitalization, neg trop, no ischemia on ecg, breathing better, CT neg for PE. Will dc home. Has [facility] appt on Saturday. . 05/11 08:02 Order name: Blood Culture Adult (2) 05/11 08:02 Order name: BMP; Complete Time: 08:49 05/11 08:02 Order name: CBC with Diff; Complete Time: 08:38 05/11 08:02 Order name: NT PRO-BNP; Complete Time: 08:49 05/11 08:02 Order name: PT-INR; Complete Time: 08:38 05/11 08:02 Order name: Ptt, Activated; Complete Time: 08:38 05/11 08:02 Order name: XRAY CXR (1 view); Complete Time: 09:39 05/11 08:02 Order name: Troponin (emerg Dept Use Only); Complete Time: 08:49 05/11 08:02 Order name: EKG; Complete Time: 08:04 05/11 08:50 Order name: CT Chest For PE Angio; Complete Time: 09:39 05/11 08:02 Order name: Cardiac monitoring; Complete Time: 08:20 05/11 08:02 Order name: EKG - Nurse/Tech; Complete Time: 08:20 05/11 08:02 Order name: IV Saline Lock; Complete Time: 08:20 05/11 08:02 Order name: Labs collected and sent; Complete Time: 08:20 05/11 08:02 Order name: O2 Per Protocol; Complete Time: 08:21 05/11 08:02 Order name: O2 Sat Monitoring; Complete Time: 08:21 rn Administered Medications: 08:35 Drug: SOLU-Medrol 125 mg Route: IVP; Site: right antecubital; sv 09:33 Follow up: Response: No adverse reaction sv 08:35 Drug: Valium 5 mg Route: PO; sv 09:33 Follow up: Response: No adverse reaction sv 08:36 Drug: Xopenex (3) 1.25 mg Route: Inhalation; sv 09:33 Drug: Lasix 40 mg Route: IVP; Site: right antecubital; sv Disposition: 05/11/19 10:00 Discharged to Home. Impression: Systolic (congestive) heart failure, Chronic obstructive pulmonary disease, unspecified, Anxiety disorder, unspecified. - Condition is Stable. - Discharge Instructions: Heart Failure, Chronic Obstructive Pulmonary Disease, Generalized Anxiety Disorder. - Medication Reconciliation Form, Thank You Letter, Antibiotic Education, Prescription Opioid Use form. - Follow up: Private Physician; When: As needed; Reason: Recheck today's complaints, Re-evaluation by your physician. - Problem is an ongoing problem. - Symptoms have improved. Signatures: Dispatcher [employer] EDHortensia Angulo RN RN sv Williams, Irene, RN RN iw Nieto, Roman, MD MD internal audit senior manager: (The following items were deleted from the chart) 10:23 10:00 05/11/2019 10:00 Discharged to Home. Impression: Systolic (congestive) heart sv failure; Chronic obstructive pulmonary disease, unspecified; Anxiety disorder, unspecified. Condition is Stable. Discharge Instructions: Heart Failure, Heart Failure, [id number]. Forms are Medication Reconciliation Form, Thank You Letter, Antibiotic Education, Prescription Opioid Use. Follow up: Private Physician; When: As needed; Reason: Recheck today's complaints, Re-evaluation by your physician. Problem is an ongoing problem. Symptoms have improved. rn
--- NOTE | 2019-05-11 10:23 | EKG ---
Test Date: 2019-05-11 Test Time: 08:14:32 Track Maintainer: ESPERANZA MEASUREMENT RESULTS: Intervals: Rate: 104 IA: 162 QRSD: 92 QT: 364 QTc: 478 [place]: P: 75 IA: 162 QRS: 69 T: 248 INTERPRETIVE STATEMENTS: Sinus tachycardia with premature atrial complexes with aberrant conduction Left ventricular hypertrophy with repolarization abnormality Abnormal ECG Compared to ECG 04/15/2019 02:37:28 Atrial premature complex(es) now present Aberrant conduction of supraventricular beat(s) now present Ventricular premature complex(es) no longer present Electronically Signed On 05-11-19 10:22:24 NURSE INTERN by Hesham Jaime
[2019-05-11 10:29] VITALS: TEMP 98.1; O2SAT 98
[2019-05-11 10:30] VITALS: BP 111/73
== END 2019-05-11 10:23 | disposition home or self-care (01) ==
LOC: ER 07:57
DX: I50.20 Unspecified systolic (congestive) heart failure (principal); J44.9 Chronic obstructive pulmonary disease, unspecified; R41.9 Unspecified symptoms and signs involving cognitive functions and awareness; I10 Essential (primary) hypertension; Z85.038 Personal history of other malignant neoplasm of large intestine; Z72.0 Tobacco use
CPT/HCPCS: 93005; 87040; 85025; 80048; 36415; 85610; 85730; 84484; 83880; 71275; 71045; 96375; 96374; 99285; Q9967; J1940; J2930

== ENCOUNTER 2021-05-03 17:40 | Emergency (ER) | payer MEDICARE, OTHER ==
[2021-05-03 18:43] LABS: Absolute Lymphocytes (CBC) 2.3 K/uL (0.7-4.9); Hematocrit 47.2 % (39.6-49.0); Lymphocytes % 19.6 % (15.3-44.8); MPV 9.7 fL (7.6-11.3); RBC Red Blood Cell Count 5.35 M/uL (4.33-5.43)
--- NOTE | 2021-05-03 18:49 | RAD REPORT ---
EXAM DESCRIPTION: Javy Single View05/03/2021 6:40 pm CLINICAL HISTORY: Numbness COMPARISON: 2019 FINDINGS: The lungs are hyperaerated. The lungs appear clear of acute infiltrate. The heart is normal size IMPRESSION: No acute abnormalities displayed
[2021-05-03 18:53] LABS: Protime INR 1.02
[2021-05-03 18:58] LABS: BUN Blood Urea Nitrogen 11 mg/dL (7-18); Bicarbonate 29 mmol/L (21-32); Glucose Level 92 mg/dL (74-106); Potassium 4.2 mmol/L (3.5-5.1); Sodium Level 137 mmol/L (136-145)
[2021-05-03] MEDS ORDERED: ASPIRIN 325 MG TAB ONE (19:09)
[2021-05-03] MEDS ORDERED: ATORVASTATIN 20 MG TAB ONE (19:09)
--- NOTE | 2021-05-03 19:17 | RAD REPORT ---
EXAM DESCRIPTION: CT - Ct Stroke Brain Wo Cont - 05/03/2021 7:06 pm CLINICAL HISTORY: Numbness COMPARISON: none TECHNIQUE: Computed axial tomography of the head was obtained. All CT scans are performed using dose optimization technique as appropriate and may include automated exposure control or mA/KV adjustment according to patient size. FINDINGS: An intracranial bleed is not seen . The ventricles are normal in caliber. No extra-axial fluid collection is noted. 4 millimeter low-density area right internal capsule. Small low-density areas basal ganglia likely old lacunar infarcts. Mild to moderate low-density within periventricular, deep and subcortical white matter likely ischemi c changes secondary to small vessel disease Fluid within the sinuses/ mastoids is not seen. IMPRESSION: 4 millimeter low-density area right internal capsule probably a lacunar infarct. The age is indeterminate. If clinically indicated a MRI would be helpful to assess acuity. Triston of the emergency room was notified 7:11 p.m. May 03, 2021
--- NOTE | 2021-05-03 19:24 | RAD REPORT ---
EXAM DESCRIPTION: Glo Angio05/03/2021 7:06 pm CLINICAL HISTORY: Numbness COMPARISON: None TECHNIQUE: 50 cc Isovue 370 was administered intravenously. 3D MIP reconstruction performed All CT scans are performed using dose optimization technique as appropriate and may include automated exposure control or mA/KV adjustment according to patient size. FINDINGS: Minimal calcified plaque is present within the distal internal carotid arteries. Otherwise common carotid, internal carotid and external carotid arteries are unremarkable. Left vertebral artery is dominant. No abnormality vertebral artery seen. No dissection. Maxillary, ethmoid and frontal sinusitis. IMPRESSION: No significant abnormality involving the arteries. NASCET criteria used. Mild 0-49% stenosis Moderate 50-69% stenosis Severe 70-99% stenosis
--- NOTE | 2021-05-03 19:43 | RAD REPORT ---
EXAM DESCRIPTION: CTHead angio05/03/2021 7:06 pm CLINICAL HISTORY: numbness COMPARISON: None TECHNIQUE: CT angiogram of the head was obtained. 3D MIPS reconstruction performed. All CT scans are performed using dose optimization technique as appropriate and may include automated exposure control or mA/KV adjustment according to patient size. FINDINGS: The basilar, internal carotid, anterior cerebral, middle cerebral and posterior cerebral a rteries are normal caliber. An aneurysm is not seen. A significant stenosis is not noted. IMPRESSION: Unremarkable CT angiogram head.
[2021-05-03] MEDS ORDERED: CLOPIDOGREL 75 MG TABLET ONE (20:05)
[2021-05-03] MEDS ORDERED: FOLIC ACID 5 MG/ML VIAL ONE (20:09)
--- NOTE | 2021-05-03 20:12 | ER ---
Nurse's Notes [facility] Name: Jc Becerra Jr Age: 61 yrs Sex: Male : 1960 Arrival Date: 05/03/2021 Time: 17:42 Bed 16 Private MD: Diagnosis: Cerebral infarction, unspecified Presentation: 05/03 18:08 Chief complaint: Patient states: Left sided numbness - face, ear, arm and leg. Pt ld1 states he thinks it started at noon. Coronavirus screen: At this time, the client does not indicate any symptoms associated with coronavirus-19. Ebola Screen: No symptoms or risks identified at this time. Initial Sepsis Screen: Does the patient meet any 2 criteria? No. Patient's initial sepsis screen is negative. Does the patient have a suspected source of infection? No. Patient's initial sepsis screen is negative. Risk Assessment: Do you want to hurt yourself or someone else? Patient reports no desire to harm self or others. Onset of symptoms was May 03, 2021. 18:08 Method Of Arrival: Ambulatory ld1 18:08 Acuity: TESFAYE 3 ld1 Triage Assessment: 18:09 General: Appears in no apparent distress. comfortable, Behavior is calm, cooperative, ld1 appropriate for age. Pain: Denies pain. Neuro: Level of Consciousness is awake, alert, obeys commands, Oriented to person, place, time, situation. Respiratory: Airway is patent Respiratory effort is even, unlabored, Respiratory pattern is regular, symmetrical. Historical: - Allergies: 18:09 Ibuprofen; ld1 - PMHx: 18:09 CHF; Hypertension; Hernia; Pneumonia; COPD; colon cancer; ld1 - Immunization history:: Adult Immunizations up to date, Client reports having NOT received the Covid vaccine. - Social history:: Smoking status: Patient reports the use of cigarette tobacco products, smokes two packs cigarettes per day. Patient/guardian denies using alcohol. Screenin:30 Abuse screen: Denies threats or abuse. jh6 18:30 Nutritional screening: No deficits noted. Tuberculosis screening: No symptoms or risk jh6 factors identified. Fall Risk IV access (20 points). Assessment: 18:30 General: Appears in no apparent distress. comfortable, well groomed, well developed, jh6 well nourished, Behavior is calm, cooperative, appropriate for age. 18:30 Pain: Denies pain. Neuro: Reports tingling to left side of his body. states that it jh6 started today while sitting on the couch. started in the left arm and has worked its way down to l leg. states that the tingling feels like when your arm falls a sleep.. 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 Full function Gait is steady, Speech is normal, Facial symmetry appears normal, Pupils are PERRLA, Tingling in left ear, left cheek, left eye, left roman catholic, left jaw, left side of forehead, left temporal area, left base of the skull, left side of head, left arm and left leg. Cardiovascular: No deficits noted. Respiratory: No deficits noted. Airway is patent Trachea midline. 19:14 Reassessment: No changes from previously documented assessment. jh6 Vital Signs: 02:09 BP 136 / 91; Pulse 71; Resp 18; Temp 98.4; Pulse Ox 98% on R/A; mr2 18:08 BP 155 / 102; Pulse 103; Resp 18; Temp 98.1(O); Pulse Ox 97% on R/A; Weight 77.11 kg; ld1 Height 6 ft. 0 in. (182.88 cm); Pain 0/10; 18:30 BP 130 / 100; Pulse 75; Resp 18; Pulse Ox 100% ; Pain 0/10; jh6 18:08 Body Mass Index 23.06 (77.11 kg, 182.88 cm) ld1 NIH Stroke Scale Scores: 18:36 NIHSS Score: 1 pm1 ED Course: 17:42 Patient arrived in ED. ds1 18:09 Triage completed. ld1 18:09 Arm band placed on right wrist. ld1 18:13 Triston Dominguez NP is PHCP. pm1 18:13 Truman Monge MD is Attending Physician. pm1 18:37 Sheila Peacock RN is Primary Nurse. jh6 18:38 Stroke CXR 1 View Sent. jh6 18:40 Stroke CXR 1 View In Process Unspecified. EDMS 19:[address] jh6 19:06 CT Head Angio In Process Unspecified. EDMS 19:06 CT Neck Angio In Process Unspecified. EDMS 19:06 CT Stroke Brain w/o Contrast In Process Unspecified. EDMS 20:00 Patient has correct armband on for positive identification. Bed in low position. Side mr2 rails up X2. Adult w/ patient. 20:09 No provider procedures requiring assistance completed. mr2 20:19 Ryder Avila MD is Referral Physician. pm1 20:19 IV discontinued. mr2 Administered Medications: 19:24 CANCELLED (Physician Discretion): NS 0.9% 1000 ml IV at 100 ml/hr once pm1 19:30 Drug: Lipitor (atorvastatin) 80 mg Route: PO; mr2 19:31 Drug: Aspirin 325 mg Route: PO; mr2 20:05 Drug: foLIC Acid 1 mg Route: IVPB; Site: left antecubital; mr2 20:05 Drug: PlaVIX (clopidogrel) 75 mg Route: PO; mr2 Outcome: 20:30 AMA AMA form signed mr2 20:30 Condition: stable 20:30 Discharge instructions given to patient, Instructed on follow up and referral plans. medication usage, Prescriptions given X 4. 20:44 Patient left the ED. mr2 NIH Stroke Scale - NIH Stroke Score Date: 05/03/2021 Time: 18:36 Total Score = 1 1a. Level of Consciousness (LOC) - 0(Alert) 1b. Level of Consciousness (LOC) (Month \T\ Age) - 0(Both) 1c. LOC Commands (Open \T\ Closes Eyes/Fire Truck Driver) - 0(Both) 2. Best Gaze (Lateral Gaze Paresis) - 0(Normal) 3. Visual Field Loss - 0(No visual loss) 4. Facial Palsy - 0(Normal) 5a. Left Arm: Motor (10-second hold) - 0(No drift) 5b. Right Arm: Motor (10-second hold) - 0(No drift) 6a. Left Leg: Motor (5-second hold - always test supine) - 0(No drift) 6b. Right Leg: Motor (5-second hold - always test supine) - 0(No drift) 7. Limb Ataxia (finger/nose \T\ heel/connell - test with eyes open) - 0(Absent) 8. Sensory Loss (pinprick arms/legs/face) - 1(Mild to moderate loss) 9. Best Language: Aphasia (description/naming/reading) - 0(No aphasia) 10. Dysarthria (speech clarity - read or repeat words) - 0(Normal) 11. Extinction and Inattention (visual/tactile/auditory/spatial/personal) - 0(No abnormality) Initials: pm1 Signatures: Dispatcher [employer] EDLatonya Alford ds1 Triston Dominguez, ROJELIO BILLING SPEC pm1 Jossy Reilly RN RN ld1 Domingo Jarvis RN RN mr2 Sheila Peacock RN RN jh6 Corrections: (The following items were deleted from the chart) 18:19 18:08 BP 155 / 102; Pulse 170bpm; Resp 18bpm; Pulse Ox 97% RA; Temp 98.1F Oral; ld1 77.11 kg; Height 6 ft. 0 in.; BMI: 23.0; Pain 0/10; ld1
--- NOTE | 2021-05-03 20:12 | EDPHYS ---
Physician Documentation [facility] Name: Jc Becerra Jr Age: 61 yrs Sex: Male : 1960 Arrival Date: 05/03/2021 Time: 17:42 Bed 16 Private MD: ED Physician Truman Monge HPI: 05/03 18:36 This 61 yrs old Male presents to ER via Ambulatory with complaints of L Side Numbness. pm1 18:36 The patient presents to the emergency department with paresthesias of the left lower pm1 extremity, left upper extremity, left side of the face. Onset: The symptoms/episode began/occurred today, at 12:00. Associated signs and symptoms: Pertinent negatives: fever, headache, vision changes, nausea, vomiting. Severity of symptoms: in the emergency department the symptoms are unchanged Pain is currently a 0 / 10. Patient's baseline: Neuro: alert and fully oriented, Motor: no deficits, Ambulation: walks without assistance, Speech: normal. The patient has not experienced similar symptoms in the past. The patient has not recently seen a physician. Historical: - Allergies: 18:09 Ibuprofen; ld1 - PMHx: 18:09 CHF; Hypertension; Hernia; Pneumonia; COPD; colon cancer; ld1 - Immunization history:: Adult Immunizations up to date, Client reports having NOT received the Covid vaccine. - Social history:: Smoking status: Patient reports the use of cigarette tobacco products, smokes two packs cigarettes per day. Patient/guardian denies using alcohol. ROS: 18:36 Constitutional: Negative for fever, chills, and weight loss, Eyes: Negative for injury, pm1 pain, redness, and discharge, ENT: Negative for injury, pain, and discharge, Cardiovascular: Negative for chest pain, palpitations, and edema, Respiratory: Negative for shortness of breath, cough, wheezing, and pleuritic chest pain, Abdomen/GI: Negative for abdominal pain, nausea, vomiting, diarrhea, and constipation, Back: Negative for injury and pain, MS/Extremity: Negative for injury and deformity, Skin: Negative for injury, rash, and discoloration. 18:36 Neuro: Positive for numbness, of the left leg and left arm and left side of face, Negative for altered mental status, dizziness, headache, weakness. 18:36 All other systems are negative. Exam: 18:36 Constitutional: This is a well developed, well nourished patient who is awake, alert, pm1 and in no acute distress. Head/Face: Normocephalic, atraumatic. 18:36 Skin: Warm, dry with normal turgor. Normal color with no rashes, no lesions, and no evidence of cellulitis. MS/ Extremity: Pulses equal, no cyanosis. Neurovascular intact. Full, normal range of motion. 18:36 Eyes: Exam is negative for acute changes, Periorbital structures: appear normal, Pupils: no acute changes, Extraocular movements: no acute changes, Conjunctiva: no acute changes, no injection, Sclera: no acute changes, icterus, is not appreciated. 18:36 ENT: Exam is negative for acute changes, Mouth: no acute changes, Lips: normal, moist, Oral mucosa: normal, pink and intact, moist. 18:36 Neck: Exam negative for acute changes, External neck: no acute changes, ROM/movement: no acute changes. 18:36 Cardiovascular: Exam negative for acute changes, Rate: tachycardic, Rhythm: regular, Pulses: no pulse deficits are appreciated, Heart sounds: normal, normal S1and S2. 18:36 Respiratory: Exam negative for acute changes, respiratory distress, shortness of breath, Breath sounds: are clear throughout. 18:36 Abdomen/GI: Inspection: abdomen appears normal, Palpation: abdomen is soft and non-tender, in all quadrants. 18:36 Neuro: Exam negative for acute changes, Orientation: is normal, Mentation: is normal, Cranial nerves: CN II- XII are normal as tested, Cerebellar function: normal finger to nose testing, Motor: moves all fours, strength is 5/5 in all extremities. Vital Signs: 02:09 BP 136 / 91; Pulse 71; Resp 18; Temp 98.4; Pulse Ox 98% on R/A; mr2 18:08 BP 155 / 102; Pulse 103; Resp 18; Temp 98.1(O); Pulse Ox 97% on R/A; Weight 77.11 kg; ld1 Height 6 ft. 0 in. (182.88 cm); Pain 0/10; 18:30 BP 130 / 100; Pulse 75; Resp 18; Pulse Ox 100% ; Pain 0/10; jh6 18:08 Body Mass Index 23.06 (77.11 kg, 182.88 cm) ld1 NIH Stroke Scale Scores: 18:36 NIHSS Score: 1 pm1 MDM: 18:17 Patient medically screened. pm1 19:54 Data reviewed: vital signs. Data interpreted: Pulse oximetry: on room air is 100 %. pm1 Interpretation: normal. Counseling: I had a detailed discussion with the patient and/or guardian regarding: the historical points, exam findings, and any diagnostic results supporting the discharge/admit diagnosis, lab results, radiology results, the need for further work-up and treatment in the hospital. 20:07 Refusal of service: The patient/guardian displays adequate decision making capability pm1 and despite a detailed discussion of alternatives, benefits, risks, and consequences refuses: Admission to the hospital for further work-up and treatment, Patient's daughter is in the room. Explained to the patient that his decision can result in worsening of his stroke symptoms and/or . Patient wants to go home in order to take care of his bedridden . 20:14 Physician consultation: Ryder Avila MD was called at 20:15, was contacted at 20:15, pm1 regarding patient's decision to go home against medical advice. Will discharge the patient home with statin, aspirin, plavix, and folic acid. Dr Avila will see him in the office tomorrow if he is signing out AMA. I will give the patient Dr. Avila's office information and hopefully he will follow up in his office tomorrow. . 05/03 18:13 Order name: Basic Metabolic Panel; Complete Time: 22:13 rn 05/03 18:13 Order name: CBC with Diff; Complete Time: 18:53 rn 05/03 18:13 Order name: Magnesium; Complete Time: 22:13 rn 05/03 18:13 Order name: Protime (+inr); Complete Time: 18:53 rn 05/03 18:13 Order name: Ptt, Activated; Complete Time: 18:53 rn 05/03 18:13 Order name: Troponin (emerg Dept Use Only); Complete Time: 22:13 rn 05/03 18:12 Order name: CT Head Angio; Complete Time: 19:45 rn 05/03 18:12 Order name: CT Neck Angio; Complete Time: 19:26 rn 05/03 18:13 Order name: Stroke CXR 1 View; Complete Time: 18:53 rn 05/03 18:48 Order name: CT Stroke Brain w/o Contrast; Complete Time: 19:18 rn 05/03 19:18 Order name: COVID-19 (Coronavirus) Document "Date of Onset" if Symptomatic pm1 05/03 18:13 Order name: EKG; Complete Time: 18:13 rn 05/03 18:13 Order name: Accucheck; Complete Time: 18:38 rn 05/03 18:13 Order name: Cardiac monitoring; Complete Time: 18:38 rn 05/03 18:13 Order name: EKG - Nurse/Tech; Complete Time: 18:38 rn 05/03 18:13 Order name: IV Saline Lock; Complete Time: 18:38 rn 05/03 18:13 Order name: Labs collected and sent; Complete Time: 18:38 rn 05/03 18:13 Order name: NPO; Complete Time: 18:38 rn 05/03 18:13 Order name: O2 Per Protocol; Complete Time: 18:38 rn 05/03 18:13 Order name: O2 Sat Monitoring; Complete Time: 18:38 rn 05/03 18:13 Order name: Stroke Swallow Screen; Complete Time: 18:38 rn Administered Medications: 19:24 CANCELLED (Physician Discretion): NS 0.9% 1000 ml IV at 100 ml/hr once pm1 19:30 Drug: Lipitor (atorvastatin) 80 mg Route: PO; mr2 19:31 Drug: Aspirin 325 mg Route: PO; mr2 20:05 Drug: foLIC Acid 1 mg Route: IVPB; Site: left antecubital; mr2 20:05 Drug: PlaVIX (clopidogrel) 75 mg Route: PO; mr2 Disposition Summary: 05/03/21 20:11 Left Against Medical Advice Location: Home pm1 Problem: new pm1 Symptoms: are unchanged pm1 Condition: Undetermined pm1 Diagnosis - Cerebral infarction, unspecified pm1 Followup: pm1 - With: Emergency Department - When: - Reason: Worsening of condition Followup: pm1 - With: Private Physician - When: Upon discharge from the Emergency Department - Reason: Recheck today's complaints, Continuance of care, Re-evaluation by your physician Followup: pm1 - With: Ryder Avila MD - When: Tomorrow - Reason: Recheck today's complaints, Continuance of care, Re-evaluation by your physician Discharge Instructions: - Discharge Summary Sheet pm1 - Ischemic Stroke pm1 - Lacunar Stroke pm1 Prescriptions: - aspirin 325 mg Oral tablet - take 1 tablet by ORAL route once daily; 30 tablet; Refills: 0, Product pm1 Selection Permitted - Plavix 75 mg Oral Tablet - take 1 tablet by ORAL route once daily; 20 tablet; Refills: 0, Product pm1 Selection Permitted - Lipitor 80 mg Oral tablet - take 1 tablet by ORAL route once daily; 20 tablet; Refills: 0, Product pm1 Selection Permitted - Folic Acid 1 mg Oral Tablet - take 1 tablet by ORAL route once daily; 30 tablet; Refills: 0, Product pm1 Selection Permitted NIH Stroke Scale - NIH Stroke Score Date: 05/03/2021 Time: 18:36 Total Score = 1 1a. Level of Consciousness (LOC) - 0(Alert) 1b. Level of Consciousness (LOC) (Month \\T\\ Age) - 0(Both) 1c. LOC Commands (Open \\T\\ Closes Eyes/Financial Services Agent) - 0(Both) 2. Best Gaze (Lateral Gaze Paresis) - 0(Normal) 3. Visual Field Loss - 0(No visual loss) 4. Facial Palsy - 0(Normal) 5a. Left Arm: Motor (10-second hold) - 0(No drift) 5b. Right Arm: Motor (10-second hold) - 0(No drift) 6a. Left Leg: Motor (5-second hold - always test supine) - 0(No drift) 6b. Right Leg: Motor (5-second hold - always test supine) - 0(No drift) 7. Limb Ataxia (finger/nose \\T\\ heel/connell - test with eyes open) - 0(Absent) 8. Sensory Loss (pinprick arms/legs/face) - 1(Mild to moderate loss) 9. Best Language: Aphasia (description/naming/reading) - 0(No aphasia) 10. Dysarthria (speech clarity - read or repeat words) - 0(Normal) 11. Extinction and Inattention (visual/tactile/auditory/spatial/personal) - 0(No abnormality) Initials: pm1 Addendum: 05/08/2021 07:03 Co-signature as Attending Physician, Truman Monge MD. rn Signatures: Dispatcher [employer] EDTruman Oliver MD MD rn Triston Dominguez, EARLY INTERVENTION SPECIALIST EARLY INTERVENTION SPECIALIST pm1 Jossy Reilly, RN RN ld1 Domingo Jarvis RN RN mr2 Corrections: (The following items were deleted from the chart) 05/03 18:53 18:13 Head Brain Wo Cont+CT.RAD.BRZ ordered. EDMS EDMS 19:24 19:23 NS 0.9% 1000 ml IV at 100 ml/hr once ordered. pm1 pm1
[2021-05-03 20:32] LABS: Magnesium 2.1 mg/dL (1.8-2.4); Troponin (Emerg Dept Use Only) < 0.02 ng/mL (0.0-0.045)
[2021-05-03 20:48] VITALS: TEMP 98.1
[2021-05-03 20:50] VITALS: BP 130/100; O2SAT 100
== END 2021-05-03 20:44 | disposition left against medical advice (07) ==
LOC: ER 17:40
DX: I63.9 Cerebral infarction, unspecified (principal); R29.701 NIHSS score 1
CPT/HCPCS: 93005; 85025; 80048; 36415; 83735; 85610; 85730; 84484; 70496; 70498; 70450; 71045; 96374; 99284; Q9967

== ENCOUNTER 2023-11-16 22:45 | Emergency (ER) | payer OTHER ==
[2023-11-17 00:20] LABS: Anion Gap 7.2 mEq/L (5.0-15.0); Potassium 3.2 mEq/L (3.5-5.1); Troponin High Sensitivity 8.1 pg/mL (<58.9)
[2023-11-17 00:31] LABS: Absolute Lymphocytes (CBC) 1.2 K/uL (0.7-4.9); Absolute Monocytes 1.1 K/uL (0.1-1.3); Absolute Neutrophil 6.8 K/uL (1.8-8.0); Basophils % 0.2 % (0-1.3); Eosinophils % 0.1 % (0-4.4); Hematocrit 41.7 % (39.6-49.0); Lymphocytes % 12.9 % (15.3-44.8); MCH 28.8 pg (27.0-35.0); MCHC 33.6 g/dL (32.0-36.0); MCV 85.7 fL (80-100); MPV 10.1 fL (7.6-11.3); Monocytes % 11.7 % (3.3-12.3); Neutrophils % 75.1 % (41.7-73.7); Nucleated Red Blood Cells % 0.1 % (0-0); Platelets 125 thou/uL (152-406); RBC Red Blood Cell Count 4.87 M/uL (4.33-5.43); Red Cell Distribution Width 14.9 % (12.1-15.2)
[2023-11-17 02:01] LABS: PT Prothrombin Time 13.4 SECONDS (9.4-12.5); Protime INR 1.2
--- NOTE | 2023-11-17 02:08 | ER ---
Nurse's Notes [facility] Name: Jc Becerra Jr Age: 63 yrs Sex: Male : 1960 Arrival Date: 11/16/2023 Time: 22:45 Bed 2 Private MD: Diagnosis: COPD/ Chronic obstructive pulmonary disease with (acute) exacerbation Presentation: 11/15 22:50 Chief complaint: Patient states: I started having crushing chest pain yesterday that jw7 won't go away . Coronavirus screen: At this time, the client does not indicate any symptoms associated with coronavirus-19. Ebola Screen: No symptoms or risks identified at this time. Initial Sepsis Screen: Does the patient meet any 2 criteria? No. Patient's initial sepsis screen is negative. Does the patient have a suspected source of infection? No. Patient's initial sepsis screen is negative. Risk Assessment: Do you want to hurt yourself or someone else? Patient reports no desire to harm self or others. Onset of symptoms was November 15, 2023. Care prior to arrival: Medication(s) given: Normal saline infusion, 500 mL, Nitroglycerin, 0.4 mg SL x 1, IV initiated. 18 GA, in the left antecubital area, Oxygen administered. via nasal cannula, Pt took Adult Aspirin at home. 22:50 Method Of Arrival: EMS: [facility] 7 22:50 Acuity: TESFAYE 3 jw7 Triage Assessment: 22:50 General: Appears in no apparent distress. comfortable, Behavior is calm, cooperative, jw7 appropriate for age. Pain: Complains of pain in anterior aspect of left upper chest, left lateral anterior chest and left breast Pain does not radiate. Pain currently is 1 out of 10 on a pain scale. Quality of pain is described as pressure, Pain began 1 day ago. Is continuous. EENT: No deficits noted. No signs and/or symptoms were reported regarding the EENT system. Neuro: Level of Consciousness is awake, alert, obeys commands, Oriented to person, place, time, situation, Appropriate for age. Cardiovascular: Reports chest pain, Heart tones S1 S2 present Capillary refill < 3 seconds Clubbing of nail beds is absent JVD is absent Patient's skin is warm and dry. Rhythm is sinus rhythm. Respiratory: Airway is patent Trachea midline Respiratory effort is even, unlabored, Respiratory pattern is regular, symmetrical. GI: Abdomen is flat, non-distended, Bowel sounds present X 4 quads. Abd is soft and non tender X 4 quads. : No deficits noted. No signs and/or symptoms were reported regarding the genitourinary system. Derm: Skin is intact, is healthy with good turgor, Skin is dry, Skin is normal, Skin temperature is warm. Musculoskeletal: Circulation, motion, and sensation intact. Range of motion: intact in all extremities. Historical: - Allergies: 22:50 Ibuprofen; jw7 - PMHx: 22:50 CHF; colon cancer; COPD; Hernia; Hypertension; Pneumonia; jw7 - PSHx: 22:50 prostate; Removal; jw7 - Immunization history:: Adult Immunizations up to date. - Infectious Disease History:: Denies. - Social history:: Smoking status: Patient reports the use of cigarette tobacco products, smokes one pack cigarettes per day. Patient/guardian denies using alcohol, street drugs, IV drugs. Screenin:[address] [facility] ED Fall Risk Assessment (Adult) History of falling in the last 3 months, jw7 including since admission No falls in past 3 months (0 pts) Confusion or Disorientation No (0 pts) Intoxicated or Sedated No (0 pts) Impaired Gait No (0 pts) Mobility Assist Device Used No (0 pt) Altered Elimination No (0 pt) Score/Fall Risk Level 0 - 2 = Low Risk Oriented to surroundings, Maintained a safe environment, Educated pt \T\ family on fall prevention, incl call for assistance when getting out of bed. Abuse screen: Denies threats or abuse. Denies injuries from another. Nutritional screening: No deficits noted. Tuberculosis screening: No symptoms or risk factors identified. Assessment: 22:50 General: See Triage Assessment. jw7 11/16 00:00 Reassessment: Patient appears in no apparent distress at this time. No changes from 7 previously documented assessment. Patient and/or family updated on plan of care and expected duration. Pain level reassessed. Patient is alert, oriented x 3, equal unlabored respirations, skin warm/dry/pink. 01:31 Reassessment: Patient appears in no apparent distress at this time. No changes from 7 previously documented assessment. Patient and/or family updated on plan of care and expected duration. Pain level reassessed. Patient is alert, oriented x 3, equal unlabored respirations, skin warm/dry/pink. Pain: Denies pain. 02:15 Reassessment: Patient appears in no apparent distress at this time. No changes from jw7 previously documented assessment. Patient and/or family updated on plan of care and expected duration. Pain level reassessed. Patient is alert, oriented x 3, equal unlabored respirations, skin warm/dry/pink. Pain: Denies pain. Vital Signs: 11/15 22:50 BP 134 / 99; Pulse 103; Resp 21 S; Temp 98.4(O); Pulse Ox 95% on R/A; Weight 68.49 kg; jw7 Height 6 ft. 0 in. ; Pain 05/08; 23:21 BP 132 / 78; Pulse 108; ec2 11/16 00:00 BP 132 / 81; Pulse 100; Resp 19 S; Pulse Ox 94% on R/A; jw7 01:00 BP 117 / 76; Pulse 99; Resp 16 S; Pulse Ox 95% on R/A; jw7 02:00 BP 134 / 74; Pulse 98; Resp 17 S; Pulse Ox 96% on R/A; jw7 11/15 22:50 Body Mass Index 20.48 (68.49 kg, 182.88 cm) jw7 11/15 22:50 Pain Scale: Adult jw7 ED Course: 11/15 22:50 Arm band placed on. jw7 22:50 Patient has correct armband on for positive identification. Bed in low position. Call 7 light in reach. Side rails up X2. Provided Education on: use of call light. Client placed on continuous cardiac and pulse oximetry monitoring. NIBP monitoring applied. traffic monitor specialist on. Pulse ox on. NIBP on. 22:50 Maintain EMS IV. Dressing intact. Good blood return noted. Site clean \T\ dry. Gauge \T\ jw 7 site: 18G LAC. O2 via RA. 22:59 Patient arrived in ED. am2 23:02 Ignacio Wayne MD is Attending Physician. ec2 23:23 Chest Single View In Process Unspecified. EDMS 11/16 00:32 Triage completed. jw7 01:16 Chest For Pe Angio In Process Unspecified. EDMS 02:15 No provider procedures requiring assistance completed. jw7 02:38 IV discontinued, intact, bleeding controlled, No redness/swelling at site. Pressure jw7 dressing applied. Administered Medications: 02:08 CANCELLED (Physician Discretion): [id number] mg IVPB once over 1 hrs; (mix in 250 ec2 mL NS) 02:30 Drug: predniSONE PO 40 mg PO once Route: PO; jw7 02:38 Follow up: Response: No adverse reaction; Medication administered at discharge. jw7 02:30 Drug: AZITHromycin PO 500 mg PO once Route: PO; jw7 02:39 Follow up: Response: No adverse reaction; Medication administered at discharge. jw7 Medication: 02:15 VIS not applicable for this client. jw7 Outcome: :08 Discharge ordered by . ec2 02:38 Discharged to home via wheelchair, with family, jw7 02:38 Condition: stable 02:38 Discharge instructions given to patient, family, Instructed on discharge instructions, follow up and referral plans. medication usage, Demonstrated understanding of instructions, follow-up care, medications, Prescriptions given X 2, 02:39 Patient left the ED. jw7 Signatures: Dispatcher [employer] EDArgenis Holloway 2 Eri Alatorre RN RN jw7 Ignacio Wayne MD MD ec2
--- NOTE | 2023-11-17 02:08 | EDPHYS ---
Physician Documentation [facility] Name: Jc Becerra Jr Age: 63 yrs Sex: Male : 1960 Arrival Date: 11/16/2023 Time: 22:45 Bed 2 Private MD: ED Physician Ignacio Wayne HPI: 11/15 23:21 This 63 yrs old Male presents to ER via Unassigned with complaints of Chest ec2 Pain. 23:21 Patient arrives today for evaluation of chest pain and shortness of breath. History of ec2 COPD, CHF. Patient reports he prescribed inhalers however does not regularly take them. Also has a productive cough.. Historical: - Allergies: 22:50 Ibuprofen; jw7 - PMHx: 22:50 CHF; colon cancer; COPD; Hernia; Hypertension; Pneumonia; jw7 - PSHx: 22:50 prostate; Removal; jw7 - Immunization history:: Adult Immunizations up to date. - Infectious Disease History:: Denies. - Social history:: Smoking status: Patient reports the use of cigarette tobacco products, smokes one pack cigarettes per day. Patient/guardian denies using alcohol, street drugs, IV drugs. ROS: 23:21 Constitutional: as per hpi ec2 Exam: 23:21 Constitutional: GEN: NAD Head: atraumatic Eyes: EOMI Ears: External ears are ec2 normal. CV: Tachycardia LUNGS: no respiratory distress ABD: non-distended SKIN: no evidence of rashes MSK: no evidence of trauma NEURO: moves all extremities equally Vital Signs: 22:50 BP 134 / 99; Pulse 103; Resp 21 S; Temp 98.4(O); Pulse Ox 95% on R/A; Weight 68.49 kg; jw7 Height 6 ft. 0 in. ; Pain 1/10; 23:21 BP 132 / 78; Pulse 108; ec2 11/16 00:00 BP 132 / 81; Pulse 100; Resp 19 S; Pulse Ox 94% on R/A; jw7 01:00 BP 117 / 76; Pulse 99; Resp 16 S; Pulse Ox 95% on R/A; jw7 02:00 BP 134 / 74; Pulse 98; Resp 17 S; Pulse Ox 96% on R/A; jw7 11/15 22:50 Body Mass Index 20.48 (68.49 kg, 182.88 cm) 7 11/15 22:50 Pain Scale: Adult jw7 MDM: 11/15 23:03 ED course: EKG independently reviewed and interpreted by me, shows sinus tachycardia, ec2 rate 109, no acute ST segment elevations, intervals nonconcerning.. 23:14 Patient medically screened. ec2 23:21 Data reviewed: vital signs. ED course: Patient arrives today for chest pain and ec2 shortness of breath examination remarkable for cardiopulmonary findings as above. Will obtain lab work, chest x-ray. Differential notes includes CHF exacerbation, ACS, electrolyte disturbances, anemia . 11/16 00:45 ED course: Troponin within normal ranges. Metabolic profile shows slight hypokalemia. . ec2 01:06 ED course: Chest x-ray independently reviewed and interpreted by me, shows no acute ec2 intrathoracic process.. 02:03 ED course: CT scan of the chest shows lymphadenopathy, otherwise no acute process, ec2 chronic changes noted. Patient with shortness of breath, lymphadenopathy, will treat for COPD exacerbation.. 11/15 23:59 Order name: Basic Metabolic Panel; Complete Time: 00:44 EDKS 11/15 23:59 Order name: Troponin High Sensitivity; Complete Time: 00:44 EDKS 11/15 23:59 Order name: CBC with Automated Diff; Complete Time: 02:07 [facility] 11/15 23:59 Order name: Protime (+INR); Complete Time: 02:07 [facility] 11/15 23:05 Order name: Chest Single View [facility] 11/15 23:54 Order name: Chest For Pe Angio [facility] 11/15 23:02 Order name: EKG; Complete Time: 01:11 ec2 11/15 23:02 Order name: Cardiac monitoring; Complete Time: 23:06 ec2 11/15 23:02 Order name: EKG - Nurse/Tech; Complete Time: 23:06 ec2 11/15 23:02 Order name: IV Saline Lock; Complete Time: 23:06 ec2 11/15 23:02 Order name: Labs collected and sent; Complete Time: 00:23 ec2 11/15 23:02 Order name: O2 Per Protocol; Complete Time: 23:14 ec2 11/15 23:02 Order name: O2 Sat Monitoring; Complete Time: 23:14 ec2 Administered Medications: 02:08 CANCELLED (Physician Discretion): [id number] mg IVPB once over 1 hrs; (mix in 250 ec2 mL NS) 02:30 Drug: predniSONE PO 40 mg PO once Route: PO; jw7 02:38 Follow up: Response: No adverse reaction; Medication administered at discharge. jw7 02:30 Drug: AZITHromycin PO 500 mg PO once Route: PO; jw7 02:39 Follow up: Response: No adverse reaction; Medication administered at discharge. jw7 Disposition Summary: 11/17/23 02:08 Discharge Ordered Notes: Location: Home ec2 Condition: Stable ec2 Diagnosis - COPD/ Chronic obstructive pulmonary disease with (acute) exacerbation ec2 Followup: ec2 - With: Private Physician - When: - Reason: Re-evaluation by your physician Discharge Instructions: - Discharge Summary Sheet ec2 - Chronic Obstructive Pulmonary Disease Exacerbation ec2 Forms: - Medication Reconciliation Form ec2 - Antibiotic Education ec2 - Prescription Opioid Use ec2 - Patient Portal Instructions ec2 - Leadership Thank You Letter ec2 Prescriptions: - Zithromax Z-Sandeep 250 mg Oral Tablet - take 1 tablet ORAL route as directed for 5 days Day 1 - take two (2) tablets ec2 one time. Day 2, 3, 4 , 5 take one (1) tablet once daily.; 6 tablet; Refills: 0, Product Selection Permitted - Prednisone 20 mg Oral Tablet - take 2 tablets ORAL route once daily for 5 days; 10 tablet; Refills: 0, Product ec2 Selection Permitted Signatures: Dispatcher [employer] EDKS Eri Alatorre RN RN jw7 Ignacio Wayne MD MD ec2 Corrections: (The following items were deleted from the chart) 01:14 01:11 Chest For PE Angio+CT.RAD.BRZ ordered. EDKS EDMS 01:27 01:11 Chest Single View+RAD.RAD.BRZ ordered. EDKS EDMS 02:08 02:07 AZITHromycin IVPB 500 mg IVPB once over 1 hrs; (mix in 250 mL NS) ordered. ec2 ec2
[2023-11-17] MEDS ORDERED: predniSONE 20 MG TAB ONE (02:21)
[2023-11-17] MEDS ORDERED: AZITHROMYCIN 250 MG TAB ONE (02:21)
--- NOTE | 2023-11-18 10:30 | RAD REPORT ---
EXAM DESCRIPTION: CT - Chest For Pe Angio - 11/17/2023 6:32 am CLINICAL HISTORY: 63 years Male eval for PE. TECHNIQUE: Following the administration of intravenous contrast, multiple high-resolution axial imag es of the chest were performed followed by sagittal and coronal reconstructed images. Sagittal, coron al and coronal oblique MIP images were also performed. The CT study is performed according to ALARA ( as low as reasonably achievable) or ALARA/IMAGE GENTLY, with automatic adjustment of mA and/or kV acc ording to patient size. Performed on: 11/17/2023 at 1:09 AM COMPARISON: CT chest angiography performed on 05/11/2019 FINDINGS: There is satisfactory visualization and contrast opacification of pulmonary arteries. No definite intra-arterial filling defects are identified to suggest acute or chronic pulmonary embolis m. The thoracic aorta is normal in caliber and contour without evidence of aneurysm or dissection. Th ere are very mild atherosclerotic calcifications along the thoracic aorta. The lungs are hyperinflated. There are centrilobular emphysematous changes throughout the lungs. No f ocal airspace consolidation is identified. No pleural effusions are seen. There is no pneumothorax. T here is minimal right middle lobe atelectasis. The heart is normal in size. There is no pericardial effusion. There is reflux of contrast into the h epatic veins which can be seen with right heart dysfunction.The RV/LV ratio is within normal limits. There are small nonspecific mediastinal and right hilar lymph nodes. These may be reactive inflammato ry in nature. No acute osseous abnormality is identified. The visualized upper abdominal structures reveal a stable 2.3 cm left renal cortical cyst. No follow- up imaging is recommended. There is a stable low-density left adrenal mass lesion measuring approxima tely 2 cm in diameter. No follow-up imaging is recommended. IMPRESSION: 1. No evidence of acute or chronic pulmonary embolism, aortic aneurysm or aortic disse ction. 2. Diffuse centrilobular emphysematous changes throughout the lungs, similar to the prior study. 3. Reflux of contrast into the hepatic veins which can be seen with right heart dysfunction. 4. Small nonspecific mediastinal and right hilar lymph nodes. These may be reactive inflammatory in nature. Electronically signed by: Crissy Cohen DO 11/17/2023 01:52 AM CDT Due to temporary technical issues with the PACS/Fluency reporting system, reports are being signed by the in house radiologist without review as a courtesy to ensure prompt reporting. The interpreting r adiologist is fully responsible for the content of the report.
--- NOTE | 2023-11-18 10:31 | RAD REPORT ---
EXAM DESCRIPTION: RAD - Chest Single View - 11/16/2023 11:21 pm CLINICAL HISTORY: 63 years Male; CP; COMPARISON: None. FINDINGS: Lungs: Lungs are clear, with no focal infiltrate, pneumothorax, or pleural effusion. Mediastinum: Mediastinum is within normal limits for this positioning. Bones: Bony structures are unremarkable. IMPRESSION: 1. No acute pulmonary findings. Electronically signed by: Pravin Harris MD 11/16/2023 11:38 PM CDT Workstation: [id number] Due to temporary technical issues with the PACS/Fluency reporting system, reports are being signed by the in house radiologist without review as a courtesy to ensure prompt reporting. The interpreting r adiologist is fully responsible for the content of the report.
--- NOTE | 2023-11-18 16:34 | EKG ---
Test Date: 2023-11-16 Test Time: 22:59:19 Machine Dyer: AKILA MEASUREMENT RESULTS: Intervals: Rate: 109 FL: 170 QRSD: 90 QT: 356 QTc: 479 Gregory: P: 82 FL: 170 QRS: 83 T: 82 INTERPRETIVE STATEMENTS: Sinus tachycardia Otherwise normal ECG Compared to ECG 05/03/2021 18:20:13 Sinus rhythm no longer present Prolonged QT interval no longer present Electronically Signed On 11-18-23 16:29:29 CDT by Isaac Bedolla
[2023-11-21 14:16] VITALS: BP 134/74; TEMP 98.4; O2SAT 96
== END 2023-11-17 02:39 | disposition home or self-care (01) ==
LOC: ER 22:45
DX: J44.1 Chronic obstructive pulmonary disease with (acute) exacerbation (principal); R07.9 Chest pain, unspecified; R06.02 Shortness of breath; J44.9 Chronic obstructive pulmonary disease, unspecified; I50.9 Heart failure, unspecified; I10 Essential (primary) hypertension; F17.210 Nicotine dependence, cigarettes, uncomplicated; Z85.038 Personal history of other malignant neoplasm of large intestine
CPT/HCPCS: 93005; 85025; 80048; 36415; 85610; 84484; 71275; 71045; 99285; Q9967; J7512

== ENCOUNTER 2024-05-05 11:05 | Emergency (ER) | payer OTHER ==
[2024-05-05 11:32] LABS: Absolute Basophils 0.1 K/uL (0-0.5); Absolute Eosinophils 0.1 K/uL (0-0.5); Absolute Lymphocytes (CBC) 1.7 K/uL (0.7-4.9); Absolute Monocytes 0.8 K/uL (0.1-1.3); Absolute Neutrophil 9.6 K/uL (1.8-8.0); Basophils % 0.6 % (0-1.3); Eosinophils % 0.9 % (0-4.4); Hematocrit 50.3 % (39.6-49.0); Hemoglobin 16.8 g/dL (13.6-17.9); Lymphocytes % 13.8 % (15.3-44.8); MCH 29.5 pg (27.0-35.0); MCHC 33.5 g/dL (32.0-36.0); MCV 88.3 fL (80-100); MPV 9.4 fL (7.6-11.3); Monocytes % 6.2 % (3.3-12.3); Neutrophils % 78.5 % (41.7-73.7); Nucleated Red Blood Cells % 0.2 % (0-0); Platelets 241 thou/uL (152-406)
[2024-05-05 11:52] LABS: Albumin 3.7 g/dL (3.4-5.0); Albumin/Globulin Ratio 1.1 (1.1-1.8); Alkaline Phosphatase 87 U/L (45-117); Anion Gap 6.7 mEq/L (5.0-15.0); BUN Blood Urea Nitrogen 12 mg/dL (7-18); Bicarbonate 33 mEq/L (21-32); Bilirubin Direct 0.2 mg/dL (0-0.2); Bilirubin Indirect, Calculated 0.4 mg/dL (0.2-0.8); Bilirubin Total 0.6 mg/dL (0.2-1.0); Globulin 3.4 g/dL (2.3-3.5); Glomerular Filtration Rate 77 ml/min (=/>90); Glucose Level 84 mg/dL (74-106); Magnesium 2.2 mg/dL (1.6-2.4); NT PRO-BNP 2956 pg/mL (<125); Potassium 3.7 mEq/L (3.5-5.1); Protein, Total 7.1 g/dL (6.4-8.2); Sodium Level 137 mEq/L (136-145); Troponin High Sensitivity 10.8 pg/mL (<58.9)
--- NOTE | 2024-05-05 11:53 | RAD REPORT ---
Procedure: Chest Single View HISTORY: Shortness of breath COMPARISON: October 2023 FINDINGS: The lungs appear clear of acute infiltrate. Lungs are markedly hyperaerated. No significant pleural effusion noted. The heart is normal size. IMPRESSION: COPD without visualization of an acute abnormality
[2024-05-05 11:56] LABS: ALT/SGPT < 14 U/L (16-61); AST/SGOT < 10 U/L (15-37)
[2024-05-05 12:21] LABS: SARS-CoV-2 Antigen CONTROL BLUE LINE VIS/BG OK; SARS-CoV-2 Antigen Rapid Res Negative (Negative)
--- NOTE | 2024-05-05 12:41 | ER ---
Nurse's Notes [facility] Name: Jc Becerra Jr Age: 64 yrs Sex: Male : 1960 Arrival Date: 05/05/2024 Time: 11:05 Bed 20 Private MD: Diagnosis: CHF exacerbation, shortness of breath, pulmonary edema Presentation: 05/05 11:14 Chief complaint: Patient states: SOB and fall x3 last night. pt reports unable to keep rs5 balance. Denies pain. No obvious injuries noted. 11:15 Chief complaint:. Initial Sepsis Screen: Does the patient meet any 2 criteria? HR > 90 rs5 bpm. No. Patient's initial sepsis screen is negative. Does the patient have a suspected source of infection? No. Patient's initial sepsis screen is negative. Risk Assessment: Do you want to hurt yourself or someone else? Patient reports no desire to harm self or others. Onset of symptoms was May 05, 2024. 11:15 Acuity: TESFAYE 3 rs5 11:17 Coronavirus screen: At this time, the client does not indicate any symptoms associated rs5 with coronavirus-19. Ebola Screen: No symptoms or risks identified at this time. 11:17 Method Of Arrival: Wheelchair rs5 Triage Assessment: 11:10 General: Appears in no apparent distress. comfortable, Behavior is calm, cooperative. rs5 Respiratory: Reports shortness of breath cough that is Onset: The symptoms/episode began/occurred yesterday, the patient has mild shortness of breath. Historical: - Allergies: 11:16 Ibuprofen; rs5 - PMHx: 11:16 CHF; colon cancer; COPD; Hernia; Hypertension; Pneumonia; rs5 - PSHx: 11:16 prostate; Removal; rs5 - Immunization history:: Adult Immunizations up to date. - Infectious Disease History:: Denies. - Social history:: Smoking status: Patient/guardian denies using tobacco, but has a distant history of tobacco abuse. Screenin:10 [facility] ED Fall Risk Assessment (Adult) History of falling in the last 3 months, rs5 including since admission No falls in past 3 months (0 pts) Confusion or Disorientation No (0 pts) Intoxicated or Sedated No (0 pts) Impaired Gait No (0 pts) Mobility Assist Device Used No (0 pt) Altered Elimination No (0 pt) Score/Fall Risk Level 0 - 2 = Low Risk Oriented to surroundings, Maintained a safe environment. Abuse screen: Denies threats or abuse. Nutritional screening: No deficits noted. Tuberculosis screening: No symptoms or risk factors identified. Assessment: 11:10 General: Appears in no apparent distress. comfortable, Behavior is calm, cooperative. rs5 Pain: Denies pain. Neuro: Level of Consciousness is awake, alert, obeys commands, Oriented to person, place, time, situation. Cardiovascular: Patient's skin is warm and dry. Rhythm is regular. Respiratory: Reports shortness of breath Airway is patent Respiratory effort is even, unlabored, Respiratory pattern is regular, symmetrical, Breath sounds are clear. GI: Abdomen is round non-distended, Abd is soft and non tender X 4 quads. : No signs and/or symptoms were reported regarding the genitourinary system. EENT: No signs and/or symptoms were reported regarding the EENT system. Derm: Skin is intact, Skin is pink, warm \T\ dry. 11:10 Musculoskeletal: Range of motion: intact in all extremities. rs5 12:22 Reassessment: Patient and/or family updated on plan of care and expected duration. Pain rs5 level reassessed. Patient is alert, oriented x 3, equal unlabored respirations, skin warm/dry/pink. Vital Signs: 11:15 BP 155 / 105; Pulse 100; Resp 18; Temp 98; Pulse Ox 97% on R/A; rs5 12:34 BP 145 / 91; Pulse 74; Resp 17; Pulse Ox 98% on R/A; rs5 ED Course: 11:08 Patient arrived in ED. im 11:08 Juan Buitrago MD is Attending Physician. sp3 11:10 No provider procedures requiring assistance completed. rs5 11:10 Patient has correct armband on for positive identification. Bed in low position. Call rs5 light in reach. Side rails up X2. 11:10 Arm band placed on right wrist. rs5 11:13 Mark Leggett, RN is Primary Nurse. rs5 11:16 Triage completed. rs5 11:21 EKG done, by ED staff, reviewed by Juan Buitrago MD. bc6 11:22 Inserted saline lock: 20 gauge in left antecubital area, using aseptic technique. Blood rs5 collected. Flushed with 10 mL NS. 11:42 XRAY Chest (1 view) In Process Unspecified. EDMS 12:48 Provided Education on: discharge instructions . rs5 12:51 IV discontinued, intact, bleeding controlled, No redness/swelling at site. Pressure rs5 dressing applied. Administered Medications: 12:42 Drug: Furosemide IVP 40 mg IVP once; give over 2 minutes Route: IVP; Site: left rs5 antecubital; 12:51 Follow up: Response: No adverse reaction rs5 Medication: 11:15 VIS not applicable for this client. rs5 Outcome: 12:41 Discharge ordered by . sp3 12:51 Discharged to home ambulatory, rs5 12:51 Condition: stable rs5 12:51 Discharge instructions given to patient, family, Instructed on discharge instructions, follow up and referral plans. medication usage, Demonstrated understanding of instructions, follow-up care, medications, Prescriptions given X 1, 12:54 Patient left the ED. rs5 Signatures: Dispatcher [employer] EDMS Juan Buitrago MD MD sp3 Mark Leggett, MARKOS RN rs5 Karli Gibbs 6 Damari Bejarano Corrections: (The following items were deleted from the chart) 16:12 16:11 BP 145 / 91; Pulse 74bpm; Resp 17bpm; Pulse Ox 98% RA; rs5 rs5
--- NOTE | 2024-05-05 12:41 | EDPHYS ---
Physician Documentation [facility] Name: Jc Becerra Jr Age: 64 yrs Sex: Male : 1960 Arrival Date: 05/05/2024 Time: 11:05 Bed 20 Private MD: ED Physician Juan Buitrago HPI: 05/05 12:38 This 64 yrs old Male presents to ER via Wheelchair with complaints of Shortness Of sp3 Breath. 12:38 64-year-old male with history of CHF, COPD, hypertension, prior prostate cancer not sp3 currently treated presents to the ED with chief complaint shortness of breath over the last 2 to 3 days. Worse on exertion. He denies any chest pain, headache, fever, cough, abdominal pain, vomit, diarrhea, syncope, rash,, or any other signs or symptoms on ROS at this time.. Historical: - Allergies: 11:16 Ibuprofen; rs5 - PMHx: 11:16 CHF; colon cancer; COPD; Hernia; Hypertension; Pneumonia; rs5 - PSHx: 11:16 prostate; Removal; rs5 - Immunization history:: Adult Immunizations up to date. - Infectious Disease History:: Denies. - Social history:: Smoking status: Patient/guardian denies using tobacco, but has a distant history of tobacco abuse. ROS: 12:38 Constitutional: Negative for fever, chills, and weight loss, Eyes: Negative for injury, sp3 pain, redness, and discharge, ENT: Negative for injury, pain, and discharge, Neck: Negative for injury, pain, and swelling, Cardiovascular: Negative for chest pain, palpitations, and edema, Abdomen/GI: Negative for abdominal pain, nausea, vomiting, diarrhea, and constipation, Back: Negative for injury and pain, MS/Extremity: Negative for injury and deformity, Skin: Negative for injury, rash, and discoloration, Neuro: Negative for headache, weakness, numbness, tingling, and seizure, Psych: Negative for depression, anxiety, suicide ideation, homicidal ideation, and hallucinations, Allergy/Immunology: Negative for hives, rash, and allergies, Endocrine: Negative for neck swelling, polydipsia, polyuria, polyphagia, and marked weight changes, 12:38 All other systems are negative, Exam: 12:38 Constitutional: This is a well developed, well nourished patient who is awake, alert, sp3 and in no acute distress. Head/Face: Normocephalic, atraumatic. Eyes: Pupils equal round and reactive to light, extra-ocular motions intact. Lids and lashes normal. Conjunctiva and sclera are non-icteric and not injected. Cornea within normal limits. Periorbital areas with no swelling, redness, or edema. ENT: Nares patent. No nasal discharge, no septal abnormalities noted. External auditory canals are clear. Oropharynx with no redness, swelling, or masses, exudates, or evidence of obstruction, uvula midline. Mucous membranes moist. Neck: Trachea midline, no thyromegaly or masses palpated, and no cervical lymphadenopathy. Supple, full range of motion without nuchal rigidity, or vertebral point tenderness. No Meningismus. Chest/axilla: Normal chest wall appearance and motion. Nontender with no deformity. No lesions are appreciated. Cardiovascular: Regular rate and rhythm with a normal S1 and S2. No gallops, murmurs, or rubs. Normal PMI, no JVD. No pulse deficits. Abdomen/GI: Soft, non-tender, with normal bowel sounds. No distension or tympany. No guarding or rebound. No evidence of tenderness throughout. Back: No spinal tenderness. No costovertebral tenderness. Full range of motion. Skin: Warm, dry with normal turgor. Normal color with no rashes, no lesions, and no evidence of cellulitis. MS/ Extremity: Pulses equal, no cyanosis. Neurovascular intact. Full, normal range of motion. Neuro: Awake and alert, GCS 15, oriented to person, place, time, and situation. Cranial nerves II-XII grossly intact. Motor strength 5/5 in all extremities. Sensory grossly intact. Cerebellar exam normal. Normal gait. Psych: Awake, alert, with orientation to person, place and time. Behavior, mood, and affect are within normal limits. 12:38 Respiratory: Mild Rales bilaterally., 12:39 ECG was reviewed by the Attending Physician. EKG demonstrates normal sinus rhythm at 92 sp3 bpm with occasional PVCs, normal axis, normal QRS but high voltage, QTc of 507, and nonspecific diffuse ST/T changes without evidence of acute ischemia. Vital Signs: 11:15 BP 155 / 105; Pulse 100; Resp 18; Temp 98; Pulse Ox 97% on R/A; rs5 12:34 BP 145 / 91; Pulse 74; Resp 17; Pulse Ox 98% on R/A; rs5 MDM: 11:08 Medical Screening Exam initiated sp3 12:39 Data reviewed: vital signs, nurses notes, old medical records, lab test result(s), EKG, sp3 radiologic studies. ED course: 64-year-old male with shortness of breath. Differential diagnosis include CHF, COPD, pneumonia, ACS, electrolyte abnormality, among others. I am not highly suspicious of sepsis, shock or any other critical pathology. BNP at 2900+. Remainder of labs negative including troponin. I gave patient option of 23-hour observation with IV diuresis versus 1 dose Lasix in the ED and p.o. Lasix at home. Patient wants to go home and will go that route. Patient or stands return for any worsening symptoms, chest pain, worsening shortness of breath or any other concern that he may have. He will follow-up with his PCP.. 05/05 11:12 Order name: Basic Metabolic Panel; Complete Time: 12:00 3 05/05 11:12 Order name: CBC with Diff; Complete Time: 12:00 3 05/05 11:12 Order name: LFT's; Complete Time: 12:00 3 05/05 11:12 Order name: Magnesium; Complete Time: 12:00 3 05/05 11:12 Order name: NT PRO-BNP; Complete Time: 12:00 3 05/05 11:12 Order name: Troponin HS; Complete Time: 12:00 3 05/05 11:30 Order name: Flu; Complete Time: 12:36 3 05/05 11:30 Order name: SARS RAPID; Complete Time: 12:36 3 05/05 11:30 Order name: RSV; Complete Time: 12:36 3 05/05 11:12 Order name: XRAY Chest (1 view); Complete Time: 12:00 3 05/05 11:12 Order name: EKG; Complete Time: 11:12 3 05/05 11:12 Order name: Cardiac monitoring; Complete Time: 11:21 3 05/05 11:12 Order name: EKG - Nurse/Tech; Complete Time: :3 05/05 11:12 Order name: IV Saline Lock; Complete Time: 11:53 sp3 05/05 11:12 Order name: Labs collected and sent; Complete Time: 11:53 sp3 05/05 11:12 Order name: O2 Per Protocol; Complete Time: 11:21 sp3 05/05 11:12 Order name: O2 Sat Monitoring; Complete Time: 11:21 sp3 Administered Medications: 12:42 Drug: Furosemide IVP 40 mg IVP once; give over 2 minutes Route: IVP; Site: left rs5 antecubital; 12:51 Follow up: Response: No adverse reaction rs5 Disposition Summary: 05/05/24 12:41 Discharge Ordered Notes: Location: Home sp3 Condition: Stable sp3 Diagnosis - CHF exacerbation, shortness of breath, pulmonary edema sp3 Followup: sp3 - With: Private Physician - When: Upon discharge from the Emergency Department - Reason: Continuance of care Discharge Instructions: - Discharge Summary Sheet sp3 - Heart Failure Exacerbation sp3 Forms: - Medication Reconciliation Form sp3 - Antibiotic Education sp3 - Prescription Opioid Use sp3 - Patient Portal Instructions sp3 - Leadership Thank You Letter sp3 Prescriptions: - Lasix 40 mg Oral tablet - take 1 tablet ORAL route once daily for 7 days; 7 tablet; Refills: 0, Product sp3 Selection Permitted Signatures: Dispatcher [employer] EDMS Juan Buitrago MD MD sp3 Mark Leggett RN RN rs5 Corrections: (The following items were deleted from the chart) 11:31 11:31 Influenza Screen (A \T\ B)+BA.LAB.BRZ ordered. EDMS EDMS 11: 11:31 SARS-COV-2 Antigen Rapid+I.LAB.BRZ ordered. EDMS EDMS 11:31 11:31 Respiratory Syncytial Virus Ag+BA.LAB.BRZ ordered. EDMS EDMS
[2024-05-05] MEDS ORDERED: FUROSEMIDE 40 MG/4 ML VIAL ONE (12:43)
[2024-05-05 12:58] VITALS: BP 155/105; TEMP 98; O2SAT 97
--- NOTE | 2024-05-11 11:05 | EKG ---
Test Date: 2024-05-05 Test Time: 11:18:41 Sliver Cutter: SE MEASUREMENT RESULTS: Intervals: Rate: 92 NH: 188 QRSD: 98 QT: 410 QTc: 507 Weld: P: 89 NH: 188 QRS: 86 T: 93 INTERPRETIVE STATEMENTS: Sinus rhythm with occasional premature ventricular complexes Moderate voltage criteria for LVH, may be normal variant Nonspecific ST and T wave abnormality Prolonged QT Abnormal ECG Compared to ECG 11/16/2023 22:59:19 Ventricular premature complex(es) now present Left ventricular hypertrophy now present ST (T wave) deviation now present Prolonged QT interval now present Sinus tachycardia no longer present Electronically Signed On 05-11-24 10:58:16 GLOVE CUFFER by Ian Salcido
== END 2024-05-05 12:54 | disposition home or self-care (01) ==
LOC: ER 11:05
DX: J81.1 Chronic pulmonary edema (principal); I50.9 Heart failure, unspecified; I10 Essential (primary) hypertension; Z11.52 Encounter for screening for COVID-19
CPT/HCPCS: 93005; 85025; 80048; 36415; 83735; 80076; 84484; 83880; 87807; 87804 ×2; 71045; 96374; 99284; 87811; J1940

== ENCOUNTER 2025-02-18 10:24 | Emergency (ER) | payer OTHER ==
[2025-02-18] MEDS ORDERED: IPRATROPIUM BROM 0.5MG/2.5ML ONE (10:41)
[2025-02-18] MEDS ORDERED: ALBUTEROL 2.5 MG/3 ML NEB SOL ONE (10:41)
[2025-02-18] MEDS ORDERED: METHYLPREDNISOLONE 125 MG INJ ONE (10:42)
[2025-02-18] MEDS ORDERED: Magnesium Sulfate 2gm IVPB 2 G/50 ML BAG IV ONE (10:42)
[2025-02-18 11:16] LABS: Absolute Lymphocytes (CBC) 1.3 K/uL (0.7-4.9); Hematocrit 45.8 % (39.6-49.0); Hemoglobin 15.4 g/dL (13.6-17.9); MCH 30.3 pg (27.0-35.0); MCHC 33.5 g/dL (32.0-36.0); MCV 90.5 fL (80-100); MPV 10.9 fL (7.6-11.3); Nucleated RBC Absolute Count 0.0 (0-0); Nucleated Red Blood Cells % 0.1 % (0-0); RBC Red Blood Cell Count 5.06 M/uL (4.33-5.43); White Blood Count 10.70 thou/uL (4.3-10.9)
--- NOTE | 2025-02-18 11:16 | RAD REPORT ---
EXAMINATION: ONE VIEW CHEST XR CLINICAL INDICATION: DYSPNEA TECHNIQUE: Frontal chest projection is submitted. Examination is limited by patient positioning and t echnique. COMPARISON: 11/23/2024 FINDINGS: The lungs are diffusely emphysematous but grossly clear. The heart is upper limit of normal in size. No displaced fractures identified. IMPRESSION: COPD without an acute process suspected.
[2025-02-18 11:21] LABS: PT Prothrombin Time 12.5 SECONDS (10-13.0); PTT, Activated Partial Thromb 30.8 SECONDS (27.2-37.4); Protime INR 1.11
[2025-02-18 11:31] LABS: AST/SGOT 12 U/L (15-37); Albumin 3.5 g/dL (3.4-5.0); Albumin/Globulin Ratio 1.0 (1.1-1.8); Alkaline Phosphatase 95 U/L (45-117); Anion Gap 12.8 mEq/L (5.0-15.0); BUN Blood Urea Nitrogen 8 mg/dL (7-18); Globulin 3.4 g/dL (2.3-3.5); Glucose Level 78 mg/dL (74-106); NT PRO-BNP 23672 pg/mL (<125); Potassium 2.8 mEq/L (3.5-5.1); Troponin High Sensitivity 34.7 pg/mL (<58.9)
[2025-02-18 11:37] LABS: ALT/SGPT < 14 U/L (16-61)
--- NOTE | 2025-02-18 11:51 | EDPHYS ---
Physician Documentation [facility] Name: Jc Becerra Jr Age: 64 yrs Sex: Male : 1960 Arrival Date: 02/18/2025 Time: 10:24 Bed 2 Private MD: ED Physician Ismael Landaverde HPI: 02/18 10:46 This 64 yrs old Male presents to ER via Ambulatory with complaints of Breathing sb4 Difficulty. 10:46 Patient reports shortness of breath since last night. Does have a longstanding history sb4 of COPD. States he used a breathing treatment this morning but did not improve his symptoms so he came for further eval. Historical: - Allergies: 10:36 Ibuprofen; aa5 - PMHx: 10:36 CHF; COPD; Emphysema (Pneumonia); Hernia; Hypertension; Pneumonia; aa5 10:46 Prostate Cancer; aa5 - PSHx: 10:36 prostate; Removal; aa5 - Immunization history:: Adult Immunizations unknown. - Infectious Disease History:: Denies. - Social history:: Smoking status: Patient reports the use of cigarette tobacco products. ROS: 10:46 Constitutional: Negative for fever, chills, and weight loss, sb4 10:46 Respiratory: Positive for cough, dyspnea on exertion, shortness of breath, 10:46 All other systems are negative, Exam: 10:46 Head/Face: Normocephalic, atraumatic. Eyes: Extra-ocular motions intact. Periorbital sb4 areas with no swelling, redness, or edema. ENT: Mucous membranes moist. Abdomen/GI: Soft, non-tender, no distension. Skin: Warm, dry with normal turgor. Normal color with no rashes, no lesions, and no evidence of cellulitis. 10:46 Constitutional: The patient appears alert, awake, uncomfortable, 10:46 Cardiovascular: Rate: tachycardic, Rhythm: regular, 10:46 Respiratory: mild respiratory distress is noted, Respirations: tachypnea, that is mild, Breath sounds: wheezing: expiratory is scattered, Vital Signs: 10:34 BP 154 / 96; Pulse 105; Resp 28 S; Temp 98.1(O); Pulse Ox 95% on R/A; Weight 68.04 kg aa5 (R); Height 6 ft. 2 in. (R); Pain 0/10; 11:35 Pulse 107; Resp 16 S; Pulse Ox 96% on R/A; aa5 12:00 BP 133 / 82; Pulse 102; Resp 18 S; Pulse Ox 99% on R/A; aa5 10:34 Body Mass Index 19.26 (68.04 kg, 187.96 cm) aa5 10:34 Pain Scale: Adult aa5 MDM: 10:28 Medical Screening Exam initiated sb4 10:47 Differential diagnosis: CHF exacerbation, Chronic Obstructive Pulmonary Disease sb4 pneumonia, pulmonary edema, reactive airway disease. Data interpreted: Pulse oximetry: on room air is 94 %. Interpretation: acceptable, Plan: O2 by NC applied. 11:49 Antibiotic administration: The patient is discharged and will get outpatient sb4 antibiotics, Levaquin. Data reviewed: vital signs, nurses notes, lab test result(s), EKG, radiologic studies, and as a result, I will discharge patient. Consideration of Admission/Observation Escalation of care including admission/observation considered. Care significantly affected by the following chronic conditions: Hypertension, Congestive Heart Failure, Chronic Obstructive Pulmonary Disease, Cancer. Counseling: I had a detailed discussion with the patient and/or guardian regarding the historical points, exam findings, and any diagnostic results supporting the discharge/admit diagnosis, the presence of at least one elevated blood pressure reading (>120/80) during this emergency department visit, lab results, radiology results, the need for further work-up and treatment in the hospital, smoking cessation. Refusal of service: The patient/guardian displays adequate decision making capability and despite a detailed discussion of alternatives, benefits, risks, and consequences refuses: Admission to the hospital for further work-up and treatment. 11:52 ED course: Recommended admission for patient to treat COPD and CHF exacerbation as well sb4 as hypokalemia. Patient refuses. States that they treated him last time and he just got worse again so he would prefer to just go home and do that way. Will return if he is not getting any better. He demonstrates appropriate decision-making skills and will provide patient was informed discharge at this time. 02/18 10:37 Order name: BNP; Complete Time: 11:38 sb4 02/18 10:37 Order name: Blood Culture Adult (2) sb4 02/18 10:37 Order name: CBC with Diff; Complete Time: 11:21 sb4 02/18 10:37 Order name: CMP; Complete Time: 11:38 sb4 02/18 10:37 Order name: Lactate w/ 2H reflex if indic.; Complete Time: 11:38 sb4 02/18 10:37 Order name: Protime (+inr); Complete Time: 11:21 sb4 02/18 10:37 Order name: Ptt, Activated; Complete Time: 11:21 sb4 02/18 10:37 Order name: Troponin HS; Complete Time: 11:38 sb4 02/18 11:40 Order name: Ghost Lactate-NO COLLECT Timer EDMS 02/18 10:38 Order name: Chest Single View XRAY; Complete Time: 11:21 sb4 02/18 10:37 Order name: Accucheck; Complete Time: 10:44 sb4 02/18 10:37 Order name: Cardiac monitoring; Complete Time: 10:44 sb4 02/18 10:37 Order name: EKG - Nurse/Tech; Complete Time: 10:44 sb4 02/18 10:37 Order name: IV Saline Lock - Large Bore; Complete Time: 10:44 sb4 02/18 10:37 Order name: Labs collected and sent; Complete Time: 10:44 sb4 02/18 10:37 Order name: O2 Per Protocol; Complete Time: 10:44 sb4 02/18 10:37 Order name: O2 Sat Monitoring; Complete Time: 10:44 sb4 02/18 10:37 Order name: Vital Signs; Complete Time: 10:44 sb4 EC:43 Rate is 104 beats/min. Rhythm is regular, Sinus tachycardia. TN interval is normal at sb4 162 msec. QRS interval is normal at 106 msec. QT interval is normal at 344 msec. No Q waves. T waves are Normal. No ST changes noted. Clinical impression: LVH and Sinus tachycardia. Interpreted by me. Reviewed by me. Administered Medications: 10:58 Drug: DuoNeb Nebulize (3:1) (2.5 mg - 0.5 mg) 3 ml Nebulizer once Route: Nebulizer; hb 12:15 Follow up: Response: No adverse reaction kb4 10:58 Drug: MethylPrednisoLONE IVP 125 mg IVP once Route: IVP; Site: right antecubital; hb 12:15 Follow up: Response: No adverse reaction kb4 10:58 Drug: Magnesium Sulfate IVPB 2 grams IVPB once over 2 hrs Route: IVPB; Infused Over: 2 hb hrs; Site: right antecubital; 11:58 Follow up: IV Status: Completed infusion aa5 12:14 Drug: Potassium PO Effervescent Tablet 50 mEq PO once; dissolve in 4 ounces of water or kb4 juice Route: PO; 12:15 Follow up: Response: No adverse reaction kb4 12:14 Drug: LevOfloxacin PO 750 mg PO once Route: PO; kb4 12:16 Follow up: Response: Medication Administered at Departure kb4 Disposition Summary: 02/18/25 11:50 Discharge Ordered Notes: Location: Home sb4 Problem: an acute exacerbation sb4 Symptoms: have improved sb4 Condition: Fair sb4 Diagnosis - COPD/ Chronic obstructive pulmonary disease with (acute) exacerbation sb4 - Hypokalemia sb4 Followup: sb4 - With: Emergency Department - When: As needed - Reason: Trouble breathing, Worsening of condition Discharge Instructions: - Discharge Summary Sheet sb4 - Chronic Obstructive Pulmonary Disease Exacerbation sb4 - Hypokalemia sb4 Forms: - Antibiotic Education sb4 - Patient Portal Instructions sb4 - Leadership Thank You Letter sb4 Prescriptions: - Prednisone 20 mg Oral Tablet - take 2 tablets ORAL route once daily for 5 days; 10 tablet; Refills: 0, Product sb4 Selection Permitted - levofloxacin 500 mg Oral tablet - take 1 tablet ORAL route once daily for 7 days; 7 tablet; Refills: 0, Product sb4 Selection Permitted Signatures: Dispatcher [employer] EDElis oMnae RN RN aa5 Veronica Crooks RN RN Lida Prado PA-C PASebas sb4 Angie Obrien RN RN kb4 Corrections: (The following items were deleted from the chart) 10:38 10:38 PROBNP+C.LAB.BRZ ordered. EDMS EDMS 10:38 10:38 BLOOD CULTURE*+BA.LAB.BRZ ordered. EDMS EDMS 10:38 10:38 CBC+H.LAB.BRZ ordered. EDMS EDMS 10:38 10:38 COMPREHENSIVE METABOLIC PANEL+C.LAB.BRZ ordered. EDMS EDMS 10:38 10:38 LACTATE+C.LAB.BRZ ordered. EDMS EDMS 10:38 10:38 PROTIME (+INR)+COAG.LAB.BRZ ordered. EDMS EDMS 10:38 10:38 PTT, ACTIVATED+COAG.LAB.BRZ ordered. EDMS EDMS 10:38 10:38 Troponin High Sensitivity+C.LAB.BRZ ordered. EDMS EDMS 10:38 10:38 Chest Single View+RAD.RAD.BRZ ordered. EDMS EDMS 10:46 10:36 PMHx: colon cancer; aa5 aa5
--- NOTE | 2025-02-18 11:51 | ER ---
Nurse's Notes [facility] Name: Jc Becerra Jr Age: 64 yrs Sex: Male : 1960 Arrival Date: 02/18/2025 Time: 10:24 Bed 2 Private MD: Diagnosis: COPD/ Chronic obstructive pulmonary disease with (acute) exacerbation;Hypokalemia Presentation: 02/18 10:34 Acuity: TESFAYE 3 aa5 10:34 Chief complaint: Patient states: SOB and wet cough x 3 days ago, reports symptoms got aa5 worse last night. Coronavirus screen: chills, cough unrelated to allergies. Ebola Screen: Patient denies travel to an Ebola-affected area in the 21 days before illness onset. Initial Sepsis Screen: Does the patient meet any 2 criteria? RR > 20 per min. HR > 90 bpm. Does the patient have a suspected source of infection? No. Patient's initial sepsis screen is negative. Risk Assessment: Do you want to hurt yourself or someone else? Patient reports no desire to harm self or others. Onset of symptoms was January 2025. 10:34 Method Of Arrival: Ambulatory aa5 Historical: - Allergies: 10:36 Ibuprofen; aa5 - PMHx: 10:36 CHF; COPD; Emphysema (Pneumonia); Hernia; Hypertension; Pneumonia; aa5 10:46 Prostate Cancer; aa5 - PSHx: 10:36 prostate; Removal; aa5 - Immunization history:: Adult Immunizations unknown. - Infectious Disease History:: Denies. - Social history:: Smoking status: Patient reports the use of cigarette tobacco products. Screenin:34 [facility] ED Fall Risk Assessment (Adult) History of falling in the last 3 months, aa5 including since admission No falls in past 3 months (0 pts) Confusion or Disorientation No (0 pts) Intoxicated or Sedated No (0 pts) Impaired Gait No (0 pts) Mobility Assist Device Used No (0 pt) Altered Elimination No (0 pt) Score/Fall Risk Level 0 - 2 = Low Risk Oriented to surroundings, Maintained a safe environment, Educated pt \T\ family on fall prevention, incl call for assistance when getting out of bed, Assessed \T\ reinforced patient's understanding of fall precautions. Abuse screen: Denies threats or abuse. Nutritional screening: No deficits noted. Tuberculosis screening: No symptoms or risk factors identified. Assessment: 10:34 General: Appears uncomfortable, Behavior is calm, cooperative. Pain: Denies pain. aa5 Neuro: Level of Consciousness is awake, alert, obeys commands, Oriented to person, place, time, situation. Cardiovascular: Heart tones S1 S2 present Rhythm is regular. Respiratory: Reports shortness of breath at rest wet cough x 3 days ago, reports normally his cough is dry. Airway is patent Respiratory effort is even, labored, Respiratory pattern is regular, symmetrical, tachypnea Breath sounds are diminished bilaterally. the patient has mild shortness of breath. GI: No signs and/or symptoms were reported involving the gastrointestinal system. : No signs and/or symptoms were reported regarding the genitourinary system. EENT: No signs and/or symptoms were reported regarding the EENT system. Derm: Skin is pink, warm \T\ dry. Musculoskeletal: Range of motion: intact in all extremities. 11:35 Reassessment: Patient is alert, oriented x 3, equal unlabored respirations, skin aa5 warm/dry/pink. Patient states feeling better. SOB has improved. . 11:58 Reassessment: Patient is alert, oriented x 3, equal unlabored respirations, skin aa5 warm/dry/pink. Vital Signs: 10:34 BP 154 / 96; Pulse 105; Resp 28 S; Temp 98.1(O); Pulse Ox 95% on R/A; Weight 68.04 kg aa5 (R); Height 6 ft. 2 in. (R); Pain 0/10; 11:35 Pulse 107; Resp 16 S; Pulse Ox 96% on R/A; aa5 12:00 BP 133 / 82; Pulse 102; Resp 18 S; Pulse Ox 99% on R/A; aa5 10:34 Body Mass Index 19.26 (68.04 kg, 187.96 cm) aa5 10:34 Pain Scale: Adult aa5 ED Course: 10:27 Patient arrived in ED. cj3 10:27 Lida Prado PA-C is PHCP. sb4 10:27 Ismael Landaverde MD is Attending Physician. sb4 10:34 Arm band placed on. aa5 10:34 Patient has correct armband on for positive identification. Bed in low position. Call aa5 light in reach. Side rails up X2. Adult w/ patient. Client placed on continuous cardiac and pulse oximetry monitoring. NIBP monitoring applied. monitor worker on. Pulse ox on. NIBP on. 10:36 Elis Ruvalcaba, RN is Primary Nurse. aa5 10:40 Inserted saline lock: 18 gauge in right forearm, using aseptic technique. Blood ty collected. Flushed with 10 mL NS. 10:40 Initial lab(s) drawn, by me, sent to lab. First set of blood cultures drawn by me. ty 10:46 Triage completed. aa5 10:54 Second set of blood cultures drawn by me. ty 11:11 Chest Single View XRAY In Process Unspecified. EDMS 11:38 No provider procedures requiring assistance completed. aa5 12:17 Provided Education on: abx. kb4 12:17 IV discontinued, intact, bleeding controlled, No redness/swelling at site. Pressure kb4 dressing applied. Administered Medications: 10:58 Drug: DuoNeb Nebulize (3:1) (2.5 mg - 0.5 mg) 3 ml Nebulizer once Route: Nebulizer; hb 12:15 Follow up: Response: No adverse reaction kb4 10:58 Drug: MethylPrednisoLONE IVP 125 mg IVP once Route: IVP; Site: right antecubital; hb 12:15 Follow up: Response: No adverse reaction kb4 10:58 Drug: Magnesium Sulfate IVPB 2 grams IVPB once over 2 hrs Route: IVPB; Infused Over: 2 hb hrs; Site: right antecubital; 11:58 Follow up: IV Status: Completed infusion aa5 12:14 Drug: Potassium PO Effervescent Tablet 50 mEq PO once; dissolve in 4 ounces of water or kb4 juice Route: PO; 12:15 Follow up: Response: No adverse reaction kb4 12:14 Drug: LevOfloxacin PO 750 mg PO once Route: PO; kb4 12:16 Follow up: Response: Medication Administered at Departure kb4 Medication: 11:37 VIS not applicable for this client. aa5 Outcome: 11:50 Discharge ordered by . sb4 12:16 Discharged to home ambulatory, kb4 12:16 Condition: good 12:16 Discharge instructions given to patient, Instructed on discharge instructions, follow up and referral plans. Demonstrated understanding of instructions, follow-up care, medications, Prescriptions given X 2, 12:17 Patient left the ED. kb4 Signatures: Dispatcher [employer] EDElis Monae RN RN aa5 Veronica Crooks RN RN Lida Waldron PA-C PASebas sb4 Gregorio Ingram Kayla, RN RN kb4 Chloe Wyatt cj3 Corrections: (The following items were deleted from the chart) 10:46 10:36 PMHx: colon cancer; aa5 aa5 11:37 10:34 Respiratory: Reports shortness of breath at rest wet cough x 3 days ago, reports aa5 normally his cough is dry. Airway is patent Respiratory effort is even, unlabored, Respiratory pattern is regular, symmetrical, Breath sounds are diminished bilaterally. the patient has mild shortness of breath aa5
[2025-02-18] MEDS ORDERED: POTASSIUM 25 MEQ EFFERV TAB ONE (12:03)
[2025-02-18 12:35] VITALS: TEMP 98.1
[2025-02-18 12:47] VITALS: BP 133/82; O2SAT 99
== END 2025-02-18 12:17 | disposition home or self-care (01) ==
LOC: ER 10:24
DX: J44.1 Chronic obstructive pulmonary disease with (acute) exacerbation (principal); E87.6 Hypokalemia; I50.9 Heart failure, unspecified; I10 Essential (primary) hypertension; Z72.0 Tobacco use
CPT/HCPCS: 96365; 93005; 87040 ×2; 85025; 36415; 87205; 85610; 83605; 85730; 84484; 80053; 83880; 71045; 96375; 99285; J3475; J7613; J7644; J2919

== ENCOUNTER 2025-02-23 05:30 | Observation (INO) | payer OTHER ==
[2025-02-23 06:14] LABS: Absolute Lymphocytes (CBC) 2.4 K/uL (0.7-4.9); Hematocrit 51.4 % (39.6-49.0); Hemoglobin 17.0 g/dL (13.6-17.9); MCH 29.7 pg (27.0-35.0); MCHC 33.2 g/dL (32.0-36.0); MCV 89.7 fL (80-100); MPV 10.8 fL (7.6-11.3); Nucleated RBC Absolute Count 0.0 (0-0); Nucleated Red Blood Cells % 0.1 % (0-0); RBC Red Blood Cell Count 5.73 M/uL (4.33-5.43); White Blood Count 12.60 thou/uL (4.3-10.9)
[2025-02-23 06:28] LABS: PT Prothrombin Time 11.8 SECONDS (10-13.0); Protime INR 1.05
[2025-02-23 06:33] LABS: ALT/SGPT 17 U/L (16-61); Albumin 3.3 g/dL (3.4-5.0); Albumin/Globulin Ratio 1.1 (1.1-1.8); Alkaline Phosphatase 68 U/L (45-117); Anion Gap 8.3 mEq/L (5.0-15.0); BUN Blood Urea Nitrogen 16 mg/dL (7-18); Bilirubin Indirect, Calculated 0.4 mg/dL (0.2-0.8); Globulin 3.0 g/dL (2.3-3.5); Glucose Level 95 mg/dL (74-106); Magnesium 2.2 mg/dL (1.6-2.4); NT PRO-BNP 10728 pg/mL (<125); Potassium 4.3 mEq/L (3.5-5.1); Troponin High Sensitivity 26.9 pg/mL (<58.9)
[2025-02-23 06:36] LABS: AST/SGOT < 10 U/L (15-37)
[2025-02-23] MEDS ORDERED: TRAMADOL HCL 50 MG TAB ONE (06:38)
--- NOTE | 2025-02-23 06:42 | EDPHYS ---
Physician Documentation [facility] Name: Jc Becerra Jr Age: 64 yrs Sex: Male : 1960 Arrival Date: 02/23/2025 Time: 05:30 Bed 6 Private MD: ED Physician Juan Buitrago HPI: 02/23 05:52 This 64 yrs old Male presents to ER via Unassigned with complaints of Shortness Of sp3 Breath. 05:52 64-year-old male with COPD, CHF, colon cancer history, pneumonia history now presents sp3 to the ED via EMS for recurrent shortness of breath. Patient has extensive history of COPD as well as CHF. He denies any other symptoms including chest pain, fever, neck pain, abdominal pain, vomiting, diarrhea, syncope or any other signs or symptoms on ROS at this time.. Historical: - Allergies: 05:55 Ibuprofen; vc1 - Home Meds: 05:55 None [Active]; vc1 - PMHx: 05:55 CHF; COPD; Emphysema (Pneumonia); Hernia; Hypertension; Pneumonia; Prostate Cancer; vc1 - PSHx: 05:55 prostate; Removal; vc1 - Immunization history:: Client reports having NOT received the Covid vaccine. Flu vaccine is not up to date. - Infectious Disease History:: Denies. - Social history:: Smoking status: Patient/guardian denies using tobacco, Stopped _ months ago .10. ROS: 05:54 Constitutional: Negative for fever, chills, and weight loss, Eyes: Negative for injury, sp3 pain, redness, and discharge, Neck: Negative for injury, pain, and swelling, Cardiovascular: Negative for chest pain, palpitations, and edema, Abdomen/GI: Negative for abdominal pain, nausea, vomiting, diarrhea, and constipation, Back: Negative for injury and pain, MS/Extremity: Negative for injury and deformity, Skin: Negative for injury, rash, and discoloration, Neuro: Negative for headache, weakness, numbness, tingling, and seizure, Psych: Negative for depression, anxiety, suicide ideation, homicidal ideation, and hallucinations, Allergy/Immunology: Negative for hives, rash, and allergies, Endocrine: Negative for neck swelling, polydipsia, polyuria, polyphagia, and marked weight changes, 05:54 All other systems are negative, Exam: 05:54 Constitutional: This is a well developed, well nourished patient who is awake, alert, sp3 and in no acute distress. Head/Face: Normocephalic, atraumatic. Eyes: Pupils equal round and reactive to light, extra-ocular motions intact. Lids and lashes normal. Conjunctiva and sclera are non-icteric and not injected. Cornea within normal limits. Periorbital areas with no swelling, redness, or edema. Chest/axilla: Normal chest wall appearance and motion. Nontender with no deformity. No lesions are appreciated. Cardiovascular: Regular rate and rhythm with a normal S1 and S2. No gallops, murmurs, or rubs. Normal PMI, no JVD. No pulse deficits. Abdomen/GI: Soft, non-tender, with normal bowel sounds. No distension or tympany. No guarding or rebound. No evidence of tenderness throughout. Back: No spinal tenderness. No costovertebral tenderness. Full range of motion. Skin: Warm, dry with normal turgor. Normal color with no rashes, no lesions, and no evidence of cellulitis. MS/ Extremity: Pulses equal, no cyanosis. Neurovascular intact. Full, normal range of motion. Neuro: Awake and alert, GCS 15, oriented to person, place, time, and situation. Cranial nerves II-XII grossly intact. Motor strength 5/5 in all extremities. Sensory grossly intact. Cerebellar exam normal. Normal gait. Psych: Awake, alert, with orientation to person, place and time. Behavior, mood, and affect are within normal limits. 05:54 Respiratory: Increased work of breathing with scattered wheezes and coarse breath sounds., 06:14 ECG was reviewed by the Attending Physician. EKG demonstrates sinus tachycardia at 104 sp3 bpm with normal intervals, normal QRS, normal axis, high voltage and nonspecific diffuse ST/T changes without evidence of acute ischemia. Vital Signs: 05:53 BP 157 / 82; Pulse 106; Resp 24; Temp 98.5; Pulse Ox 100% on 2 lpm NC; Weight 70.31 kg; vc1 Height 6 ft. 0 in. ; Pain 0/10; 05:58 BP 156 / 82; Pulse 107; Resp 22; Pulse Ox 100% on 2 lpm NC; Pain 0/10; ja5 06:36 BP 141 / 83; Pulse 105; Resp 24; Pulse Ox 100% ; vc1 06:37 BP 141 / 83; Pulse 106; Resp 23; Pulse Ox 98% on 2 lpm NC; ja5 06:42 Pain 6/10; ja5 07:48 BP 130 / 75; Pulse 79; Resp 17; Pulse Ox 94% ; cc6 08:00 BP 130 / 63; Pulse 77; Resp 18; Pulse Ox 82% on R/A; cc6 09:30 BP 142 / 93; Pulse 84; Resp 23; Pulse Ox 94% on R/A; cc6 05:53 Body Mass Index 21.02 (70.31 kg, 182.88 cm) vc1 05:53 Pain Scale: Adult vc1 05:58 Pain Scale: Adult ja5 06:42 Pain Scale: Adult ja5 [place] Coma Score: 05:58 Eye Response: spontaneous(4). Motor Response: obeys commands(6). Verbal Response: ja5 oriented(5). Total: 15. 06:37 Eye Response: spontaneous(4). Motor Response: obeys commands(6). Verbal Response: ja5 oriented(5). Total: 15. MDM: 05:45 Medical Screening Exam initiated sp3 05:54 Data reviewed: vital signs, nurses notes, EMS record, old medical records, lab test sp3 result(s), EKG, radiologic studies. ED course: 64-year-old male with shortness of breath. Differential diagnosis includes COPD exacerbation, CHF exacerbation, pneumonia, bronchitis, acute coronary syndrome, among others. Workup will include standard cardiac workup chest x-ray, EKG and general labs including BNP. Disposition pending workup and patient course with possible admission. Will hold on nebulizers for now.. 06:40 ED course: Patient with BNP of greater than 10,000. Will treat as CHF exacerbation with sp3 Lasix and continue to monitor COPD. Patient was admitted to hospital service under 23-hour observation.. 02/23 05:51 Order name: Basic Metabolic Panel; Complete Time: 06:36 sp3 02/23 05:51 Order name: CBC with Diff; Complete Time: 06:30 sp3 02/23 05:51 Order name: LFT's; Complete Time: 06:36 sp3 02/23 05:51 Order name: Magnesium; Complete Time: 06:36 sp3 02/23 05:51 Order name: NT PRO-BNP; Complete Time: 06:36 sp3 02/23 05:51 Order name: PT-INR; Complete Time: 06:30 sp3 02/23 05:51 Order name: Troponin HS; Complete Time: 06:36 sp3 02/23 07:32 Order name: CBC with Automated Diff EDMS 02/23 07:32 Order name: CBC with Automated Diff EDMS 02/23 07:32 Order name: Comprehensive Metabolic Panel EDMS 02/23 07:32 Order name: Comprehensive Metabolic Panel EDMS 02/23 05:51 Order name: XRAY Chest (1 view) sp3 02/23 05:51 Order name: Cardiac monitoring; Complete Time: 05:54 sp3 02/23 05:51 Order name: EKG - Nurse/Tech; Complete Time: 05:54 sp3 02/23 05:51 Order name: IV Saline Lock; Complete Time: 06:01 sp3 02/23 05:51 Order name: Labs collected and sent; Complete Time: 06:01 sp3 02/23 05:51 Order name: O2 Per Protocol; Complete Time: 05:54 sp3 02/23 05:51 Order name: O2 Sat Monitoring; Complete Time: 05:54 sp3 Administered Medications: 06:40 Drug: traMADol PO 100 mg PO once Route: PO; vc1 06:43 Follow up: Response: No adverse reaction 5 06:50 Drug: Furosemide IVP 40 mg IVP once; give over 2 minutes Route: IVP; Site: right vc1 antecubital; Disposition Summary: 02/23/25 06:41 Hospitalization Ordered Notes: Hospitalization Status: Observation sp3 Provider: Monie Meléndez sp3 Condition: Stable sp3 Problem: an acute exacerbation sp3 Symptoms: have worsened sp3 Bed/Room Type: Standard sp3 Location: Telemetry/MedSurg (observation)(02/23/25 08:57) bd Room Assignment: 421(02/23/25 08:57) bd Diagnosis - CHF exacerbation, COPD, difficulty breathing, dyspnea sp3 Forms: - Medication Reconciliation Form sp3 - SBAR form sp3 - Leadership Thank You Letter sp3 Signatures: Dispatcher [employer] EDMS Victoria Lombardi Setul, MD MD sp3 Bonita Turner RN RN vc1 Do Rodriguez RN RN [email or web address] Yeni [email or web address] Corrections: (The following items were deleted from the chart) 05:51 05:51 BASIC METABOLIC PANEL+C.LAB.BRZ ordered. EDMS EDMS 05:51 05:51 CBC+H.LAB.BRZ ordered. EDMS EDMS 05:51 05:51 HEPATIC FUNCTION+C.LAB.BRZ ordered. EDMS EDMS 05:51 05:51 MAGNESIUM+C.LAB.BRZ ordered. EDMS EDMS 05:51 05:51 PROBNP+C.LAB.BRZ ordered. EDMS EDMS 05:51 05:51 PROTIME (+INR)+COAG.LAB.BRZ ordered. EDMS EDMS 05:51 05:51 Troponin High Sensitivity+C.LAB.BRZ ordered. EDMS EDMS 05:51 05:51 Chest Single View+RAD.RAD.BRZ ordered. EDMS EDMS 08:07 06:41 Telemetry/MedSurg (observation) sp3 kb3 08:07 06:41 sp3 kb3 08:57 08:[address] [facility] ER HOLD kb3 bd 08:57 08:07 ERHOLD- kb3 bd
--- NOTE | 2025-02-23 06:42 | ER ---
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 vc1 Coronavirus screen: Client denies travel out of the [place] in the last 14 days. At this time, the client does not indicate any symptoms associated with coronavirus-19. Ebola Screen: Patient negative for fever greater than or equal to 101.5 degrees Fahrenheit, and additional compatible Ebola Virus Disease symptoms Patient denies exposure to infectious person. Patient denies travel to an Ebola-affected area in the 21 days before illness onset. No symptoms or risks identified at this time. Initial Sepsis Screen: Does the patient meet any 2 criteria? RR > 20 per min. HR > 90 bpm. Yes Does the patient have a suspected source of infection? No. Patient's initial sepsis screen is negative. Risk Assessment: Do you want to hurt yourself or someone else? Patient reports no desire to harm self or others. Onset of symptoms was February 23, 2025. Care prior to arrival: Medication(s) given: Albuterol Neb x 1. 05:53 Method Of Arrival: EMS: [facility] 05:53 Acuity: TESFAYE 3 vc1 Triage Assessment: 05:57 General: Appears in no apparent distress. uncomfortable, slender, Behavior is vc1 cooperative, anxious. Pain: Denies pain. EENT: No deficits noted. No signs and/or symptoms were reported regarding the EENT system. Neuro: Level of Consciousness is awake, alert, obeys commands, Oriented to person, place, time, situation, Appropriate for age. Cardiovascular: Reports shortness of breath, Heart tones S1 S2 present Capillary refill < 3 seconds Patient's skin is warm and dry. Rhythm is sinus tachycardia. Respiratory: Reports shortness of breath at rest Airway is patent Respiratory effort is even, labored, Respiratory pattern is symmetrical, tachypnea Breath sounds are diminished in right posterior middle lobe and right posterior lower lobe Onset: The symptoms/episode began/occurred just prior to arrival, the patient has mild shortness of breath. GI: No deficits noted. No signs and/or symptoms were reported involving the gastrointestinal system. : No deficits noted. No signs and/or symptoms were reported regarding the genitourinary system. Derm: Skin is intact, is healthy with good turgor, Skin is dry, Skin is normal, Skin temperature is warm. Musculoskeletal: No deficits noted. No signs and/or symptoms reported regarding the musculoskeletal system. Historical: - Allergies: 05:55 Ibuprofen; vc1 - Home Meds: 05:55 None [Active]; vc1 - PMHx: 05:55 CHF; COPD; Emphysema (Pneumonia); Hernia; Hypertension; Pneumonia; Prostate Cancer; vc1 - PSHx: 05:55 prostate; Removal; vc1 - Immunization history:: Client reports having NOT received the Covid vaccine. Flu vaccine is not up to date. - Infectious Disease History:: Denies. - Social history:: Smoking status: Patient/guardian denies using tobacco, Stopped _ months ago .10. Screenin:56 [facility] ED Fall Risk Assessment (Adult) History of falling in the last 3 months, vc1 including since admission No falls in past 3 months (0 pts) Confusion or Disorientation No (0 pts) Intoxicated or Sedated No (0 pts) Impaired Gait No (0 pts) Mobility Assist Device Used No (0 pt) Altered Elimination No (0 pt) Score/Fall Risk Level 0 - 2 = Low Risk Oriented to surroundings, Maintained a safe environment, Educated pt \T\ family on fall prevention, incl call for assistance when getting out of bed, Assessed \T\ reinforced patient's understanding of fall precautions, Hourly rounding (assess needs \T\ fall precautionary measures) done. Abuse screen: Denies threats or abuse. Nutritional screening: No deficits noted. Tuberculosis screening: No symptoms or risk factors identified. Assessment: 06:01 General: see triage assessment. Cardiovascular: Reports shortness of breath, Denies vc1 chest pain, Heart tones S1 S2 present. 06:37 Reassessment: No changes from previously documented assessment. Patient and/or family vc1 updated on plan of care and expected duration. Pain level reassessed. Pt states feels more tired than normal . 06:37 General: Appears in no apparent distress. comfortable, Behavior is calm, cooperative, ja5 appropriate for age. Pain: Denies pain. Neuro: No deficits noted. Weiss Agitation-Sedation Scale (RASS): 0 - Alert and Calm Level of Consciousness is awake, alert, obeys commands, Oriented to person, place, time, situation, Appropriate for age Facial symmetry appears normal, Pupils are PERRLA, Pupil Size: 2. Cardiovascular: Denies chest pain, Capillary refill < 3 seconds Clubbing of nail beds is absent JVD is absent Patient's skin is warm and dry. Chest pain is denied. Cardiovascular: Reports None Denies Respiratory: Reports shortness of breath on exertion Airway is patent Trachea midline Respiratory effort is even, Respiratory pattern is regular, symmetrical. 07:10 Reassessment: report received from MARKOS Bee. General: Appears in no apparent distress. cc6 comfortable, Behavior is calm, cooperative, appropriate for age. Pain: Denies pain. Neuro: Level of Consciousness is awake, alert, obeys commands, Oriented to person, place, time, situation, Appropriate for age. Cardiovascular: Patient's skin is warm and dry. Rhythm is sinus tachycardia. Respiratory: Airway is patent Respiratory effort is even, unlabored, Respiratory pattern is regular, symmetrical. GI: No signs and/or symptoms were reported involving the gastrointestinal system. : No signs and/or symptoms were reported regarding the genitourinary system. EENT: No signs and/or symptoms were reported regarding the EENT system. Derm: No signs and/or symptoms reported regarding the dermatologic system. Musculoskeletal: No signs and/or symptoms reported regarding the musculoskeletal system. 08:30 Reassessment: Patient and/or family updated on plan of care and expected duration. Pain cc6 level reassessed. Patient is alert, oriented x 3, equal unlabored respirations, skin warm/dry/pink. 09:30 Reassessment: Patient and/or family updated on plan of care and expected duration. Pain cc6 level reassessed. Patient is alert, oriented x 3, equal unlabored respirations, skin warm/dry/pink. Vital Signs: 05:53 BP 157 / 82; Pulse 106; Resp 24; Temp 98.5; Pulse Ox 100% on 2 lpm NC; Weight 70.31 kg; vc1 Height 6 ft. 0 in. ; Pain 0/10; 05:58 BP 156 / 82; Pulse 107; Resp 22; Pulse Ox 100% on 2 lpm NC; Pain 0/10; ja5 06:36 BP 141 / 83; Pulse 105; Resp 24; Pulse Ox 100% ; vc1 06:37 BP 141 / 83; Pulse 106; Resp 23; Pulse Ox 98% on 2 lpm NC; ja5 06:42 Pain 6/10; ja5 07:48 BP 130 / 75; Pulse 79; Resp 17; Pulse Ox 94% ; cc6 08:00 BP 130 / 63; Pulse 77; Resp 18; Pulse Ox 82% on R/A; cc6 09:30 BP 142 / 93; Pulse 84; Resp 23; Pulse Ox 94% on R/A; cc6 05:53 Body Mass Index 21.02 (70.31 kg, 182.88 cm) vc1 05:53 Pain Scale: Adult vc1 05:58 Pain Scale: Adult ja5 06:42 Pain Scale: Adult ja5 Vitals: 05:58 Cardiac Rhythm Assessment Regular Sinus tach Other md made aware. ja5 06:37 Cardiac Rhythm Assessment Regular Sinus tach. ja5 [place] Coma Score: 05:58 Eye Response: spontaneous(4). Motor Response: obeys commands(6). Verbal Response: ja5 oriented(5). Total: 15. 06:37 Eye Response: spontaneous(4). Motor Response: obeys commands(6). Verbal Response: ja5 oriented(5). Total: 15. ED Course: 05:45 Patient arrived in ED. kmf 05:45 Juan Buitrago MD is Attending Physician. sp3 05:55 Triage completed. vc1 05:56 Arm band placed on right wrist. vc1 05:57 Patient has correct armband on for positive identification. Bed in low position. Call ja5 light in reach. Side rails up X2. Provided Education on: pt verbalized understanding of care. Client placed on continuous cardiac and pulse oximetry monitoring. NIBP monitoring applied. human resources analyst on. Pulse ox on. NIBP on. Warm blanket given. 05:57 No provider procedures requiring assistance completed. Oxygen administration via nasal ja5 cannula pt stated baseline at home. Suctioned available at the bedside. 05:58 ekg performed at this time by markos bee and handed to MD BUITRAGO AT THIS TIME. ja5 05:58 EKG done, by ED staff, reviewed by Juan Buitrago MD. ja5 06:01 Yeni Zuleta is Primary Nurse. 5 06:01 Troponin HS Sent. 5 06:01 PT-INR Sent. 5 06:01 NT PRO-BNP Sent. 5 06:02 Magnesium Sent. 5 06:02 LFT's Sent. 5 06:02 CBC with Diff Sent. 5 06:02 Basic Metabolic Panel Sent. 5 06:10 XRAY CURRENTLY AT THE BEDSIDE. 5 06:10 Inserted saline lock: 22 gauge in right antecubital area, using aseptic technique. ja5 ,using aseptic technique. 22G DIFFUSEX Accessed Clean \T\ dry. Dressing intact. Good blood return. Flushes easily. IV is patent, with good blood return, Flushed right antecubital. 06:27 EKG done, by ED staff, reviewed by Juan Buitrago MD 2ND EKG PERFORMED AT THIS TIME BY leona FLAHERTY RN AND HANDED TO MD BUITRAGO AT THIS TIME WITNESS BY MARKOS BEE. 06:37 No apparent distress. Resting quietly. 5 06:37 Patient has correct armband on for positive identification. Bed in low position. Call leona light in reach. Side rails up X2. Client placed on continuous cardiac and pulse oximetry monitoring. NIBP monitoring applied. human resources analyst on. Pulse ox on. NIBP on. Warm blanket given. 06:37 Oxygen administration via nasal cannula \T\ 2L/min. ja5 06:41 XRAY Chest (1 view) In Process Unspecified. EDMI 06:41 Monie Meléndez MD is Hospitalizing Provider. sp3 07:03 Report given to jean-paul BURROWS. Administered Medications: 06:40 Drug: traMADol PO 100 mg PO once Route: PO; vc1 06:43 Follow up: Response: No adverse reaction 5 06:50 Drug: Furosemide IVP 40 mg IVP once; give over 2 minutes Route: IVP; Site: right vc1 antecubital; Medication: 05:56 VIS not applicable for this client. vc1 Outcome: 06:41 Decision to Hospitalize by Provider. sp3 10:59 Patient left the ED. ph Signatures: Dispatcher [employer] EDMI Goldie Zamora RN RN Juan Buitrago MD MD sp3 Bonita Turner RN RN vc1 SommerTeresa Cassandra, RN RN cc6 Yeni Zuleta
[2025-02-23] MEDS ORDERED: FUROSEMIDE 40 MG/4 ML VIAL ONE (06:44)
[2025-02-23] MEDS: FUROSEMIDE 40 MG/4 ML VIAL IV ONE (07:28)
--- NOTE | 2025-02-23 07:36 | P.HP ---
Certification for Inpatient Patient admitted to: Observation With expected LOS: <2 Midnights Patient will require the following post-hospital care: None Practitioner: I am a practitioner with admitting privileges, knowledge of patient current condition, hospital course, and medical plan of care. Services: Services provided to patient in accordance with Admission requirements found in Title 42 Section 412.3 of the Code of Federal Regulations Patient History Date of Service: 02/23/25 Reason for admission: COPD exacerbation, CHF exacerbation History of Present Illness: 64-year-old male with COPD, CHF, colon cancer history, pneumonia history now presents to the ED via EMS for recurrent shortness of breath. Patient has extensive history of COPD as well as CHF. He denies any other symptoms including chest pain, fever, neck pain, abdominal pain, vomiting, diarrhea, syncope. Allergies ibuprofen Allergy (Verified 04/15/19 06:36) Nausea/Vomiting Home medications list reviewed: Yes Home Medications: traMADol HCL [Ultram*] 100 mg PO TID 02/18/25 Fluticasone Propion/Salmeterol [Advair 250-50 Diskus] 1 inh IH BID 30 Days #1 inh 02/21/25 levoFLOXacin [Levaquin*] 500 mg PO DAILY 5 Days #5 tab 02/21/25 predniSONE [Prednisone*] 20 mg PO BID 4 Days #8 tab 02/21/25 - Past Medical/Surgical History Has patient received pneumonia vaccine in the past: No Diabetic: No -: COPD -: Hypertension -: Prostate cancer -: Prostate removed -: bilateral knee surgery -: appendectomy -: hernia repair - Family History Family History: Reviewed- Non-Contributory - Family History Father -: Heart disease, Cancer Notes: from drinking Mother -: Cancer Notes: breast cancer - Social History Smoking Status: Unknown if ever smoked Alcohol use: Yes CD- Drugs: No Caffeine use: Yes Place of Residence: Home Review of Systems 10-point ROS is otherwise unremarkable Physical Examination - Physical Exam General: Alert, Oriented x3, Cooperative HEENT: Atraumatic, Normocephalic Neck: Supple, Without JVD or thyroid abnormality Respiratory: Clear to auscultation bilaterally, Normal air movement Cardiovascular: No edema, Normal pulses, Regular rate/rhythm, Normal S1 S2 Capillary refill: <2 Seconds Gastrointestinal: Normal bowel sounds, Soft and benign, Non-distended, W/out hepatosplenomegaly, No ascites Musculoskeletal: No clubbing, No swelling, No contractures Integumentary: No rashes, No breakdown, No significant lesion Neurological: Normal speech, Normal tone, Sensation intact, Cranial nerves 3-12 intact, Normal affect - Studies Laboratory Data (last 24 hrs) 02/23/25 02/23/25 02/23/25 06:02 06:02 06:02 WBC 12.60 H Hgb 17.0 Hct 51.4 H Plt Count 180 PT 11.8 INR 1.05 Sodium 137 Potassium 4.3 BUN 16 Creatinine 0.87 Glucose 95 Magnesium 2.2 Total Bilirubin 0.6 AST < 10 L ALT 17 Alkaline Phosphatase 68 Assessment and Plan - Plan Assessment: 64-year-old male with COPD, CHF, colon cancer history, pneumonia history now presents to the ED via EMS for recurrent shortness of breath. Patient has ext ensive history of COPD as well as CHF. He denies any other symptoms including chest pain, fever, neck pain, abdominal pain, vomiting, diarrhea, syncope. Patient back to baseline not requiring any supplemental O2 to maintain O2 sats greater than 92%. Plan: COPD with acute exacerbation. -Continuous pulse oximetry. -Baseline Oxygen requirements: -Oxygen Via nasal canula to maintain O2 saturation 88-92% wean down as tolerated. -CXR personally reviewed and showed: Trace pleural effusions without any areas of focal consolidation -CTPE personally reviewed and showed: Deferred due to clinical improvement -ECG personally reviewed and showed: NSR without signs of ischemia Heart failure with reduced ejection fraction, in acute exacerbation: Improving -Strict intake output chart. -Fluid restriction <1500 ml/day -Lasix: 40 mg IV x 1 -Supplemental O2 as needed - Advance Directives Does patient have a Living Will: No Does patient have a Durable POA for Healthcare: No - Code Status/Comfort Care Code Status Assessed: Yes Code Status: Full Code Critical Care: No
--- NOTE | 2025-02-23 08:21 | RAD REPORT ---
EXAMINATION: ONE VIEW CHEST XR CLINICAL INDICATION: Male, 64 years old.,h/o CHF;COPD;Dyspnea TECHNIQUE: Frontal chest projection is submitted. Examination is limited by patient positioning and t echnique. COMPARISON: 02/18/2025 FINDINGS: The lungs are diffusely emphysematous but grossly clear. No pneumothorax or sizable effusion. The he art is normal in size. Mediastinal contours are unremarkable. IMPRESSION: No acute intrathoracic abnormalities.
[2025-02-23] MEDS: TRAMADOL HCL 50 MG TAB PO SCH (14:09)
[2025-02-23 14:21] VITALS: BMI 20.9
[2025-02-23] MEDS: FLU (Fluarix) 25-26 (6MOS UP)/PF 45 MCG/0.5 ML Syringe IM ONE (15:15)
[2025-02-23] MEDS: DULERA 200/5 (MOMETASONE/FORMOTEROL) INHALER IH SCH (21:00)
[2025-02-24 06:50] LABS: Absolute Lymphocytes (CBC) 2.6 K/uL (0.7-4.9); Hematocrit 48.8 % (39.6-49.0); Hemoglobin 16.2 g/dL (13.6-17.9); MCH 29.5 pg (27.0-35.0); MCHC 33.1 g/dL (32.0-36.0); MCV 89.3 fL (80-100); MPV 10.6 fL (7.6-11.3); Nucleated RBC Absolute Count 0.0 (0-0); Nucleated Red Blood Cells % 0.2 % (0-0); RBC Red Blood Cell Count 5.47 M/uL (4.33-5.43); White Blood Count 11.60 thou/uL (4.3-10.9)
[2025-02-24 06:51] LABS: ALT/SGPT 17 U/L (16-61); Albumin 3.0 g/dL (3.4-5.0); Albumin/Globulin Ratio 1.2 (1.1-1.8); Alkaline Phosphatase 59 U/L (45-117); Anion Gap 8.5 mEq/L (5.0-15.0); BUN Blood Urea Nitrogen 18 mg/dL (7-18); Globulin 2.6 g/dL (2.3-3.5); Glucose Level 73 mg/dL (74-106); Potassium 3.5 mEq/L (3.5-5.1)
[2025-02-24 06:55] LABS: AST/SGOT < 10 U/L (15-37)
--- NOTE | 2025-02-24 08:41 | P.DS ---
Admission Date: 02/23/25 Discharge Date: 02/24/25 Primary Care Provider: Dr Trevino Disposition: ROUTINE DISCHARGE Discharge Condition: GOOD Reason for Admission: COPD exacerbation, CHF exacerbation Consultations: None Procedures: None Brief History of Present Illness: 64-year-old male with COPD, CHF, colon cancer history, pneumonia history now presents to the ED via EMS for recurrent shortness of breath. Patient has extensive history of COPD as well as CHF. He denies any other symptoms including chest pain, fever, neck pain, abdominal pain, vomiting, diarrhea, syncope. Hospital Course: COPD with acute exacerbation. -Continuous pulse oximetry monitored. -Baseline Oxygen requirements: 2 L nasal cannula -Oxygen Via nasal canula to maintain O2 saturation 88-92% wean down as tolerated. -CXR personally reviewed and showed: No acute intrathoracic abnormalities. -CTPE personally reviewed and showed: Deferred due to clinical improvement -ECG personally reviewed and showed: NSR without signs of ischemia Heart failure with reduced ejection fraction, in acute exacerbation: Improving -Strict intake output charedt. -Fluid restriction <1500 ml/day -Lasix: 40 mg IV x 1 given -Supplemental O2 as needed Vital Signs/Physical Exam: Temp Pulse Resp BP Pulse Ox 98 F 94 H 16 149/69 H 93 02/24/25 04:00 02/24/25 04:00 02/24/25 04:00 02/24/25 04:00 02/24/25 04:00 General: Alert, Oriented x3, Cooperative, Cachectic HEENT: Atraumatic, Normocephalic Neck: Supple, No Thyromegaly, No LAD Respiratory: Clear to auscultation bilaterally, Normal air movement Cardiovascular: No edema, Regular rate/rhythm, Normal S1 S2 Capillary refill: <2 Seconds Gastrointestinal: Normal bowel sounds, Soft and benign, Non-distended Musculoskeletal: No swelling, No contractures, No erythema Integumentary: No breakdown, No significant lesion, No tenderness/swelling Neurological: Normal speech, Normal strength at 5/5 x4 extr, Normal tone, Sensation intact Laboratory Data at Discharge: WBC 11.60 thou/uL (4.3-10.9) H 02/24/25 05:54 Hgb 16.2 g/dL (13.6-17.9) 02/24/25 05:54 Hct 48.8 % (39.6-49.0) 02/24/25 05:54 Plt Count 159 thou/uL (152-406) 02/24/25 05:54 PT 11.8 SECONDS (10-13.0) 02/23/25 06:02 INR 1.05 02/23/25 06:02 Sodium 139 mEq/L (136-145) 02/24/25 05:45 Potassium 3.5 mEq/L (3.5-5.1) D 02/24/25 05:45 BUN 18 mg/dL (7-18) 02/24/25 05:45 Creatinine 0.88 mg/dL (0.70-1.30) 02/24/25 05:45 Glucose 73 mg/dL (74-106) L 02/24/25 05:45 Magnesium 2.2 mg/dL (1.6-2.4) 02/23/25 06:02 Total Bilirubin 0.7 mg/dL (0.2-1.0) 02/24/25 05:45 AST < 10 U/L (15-37) L 02/24/25 05:45 ALT 17 U/L (16-61) 02/24/25 05:45 Alkaline Phosphatase 59 U/L (45-117) 02/24/25 05:45 Home Medications: traMADol HCL [Ultram*] 100 mg PO TID 02/18/25 Fluticasone Propion/Salmeterol [Advair 250-50 Diskus] 1 inh IH BID 30 Days #1 inh 02/21/25 Metoprolol Tartrate [Lopressor] 25 mg PO BID #60 tab 02/24/25 New Medications: Metoprolol Tartrate [Lopressor] 25 mg PO BID #60 tab Physician Discharge Instructions: PROBLEM: COPD and CHF exacerbation GOAL: Clear understanding of disease process INSTRUCTIONS: Follow-up with your primary care in the next 2 to 3 days Make sure you are wearing your 2 L nasal cannula oxygen as prescribed Take all of your medications as prescribed If you experience shortness of breath or worsening breathing effort please contact your primary care provider for additional instructions. If you are unable to reach them please seek more emergent care. Diet: Heart healthy diet Activity: Resume normal activities as tolerated Diet: AHA Activity: Ad jethro Followup: Raffy Trevino DO, DO [Primary Care Provider] - 2-3 Days Time spent managing pt's care (in minutes): 32
[2025-02-24] MEDS: FUROSEMIDE 20 MG/ 2ML VIAL IV ONE (08:54)
[2025-02-24] MEDS: METHYLPREDNISOLONE 40 MG INJ IV ONE ×2 (09:02)
[2025-02-24] MEDS: ALBUTEROL 2.5 MG/3 ML NEB SOL NEB SCH (09:39)
[2025-02-24] MEDS: IPRATROPIUM BROM 0.5MG/2.5ML NEB SCH (09:39)
[2025-02-24 16:09] VITALS: BP 113/77; TEMP 97.6
[2025-02-24 16:34] VITALS: O2SAT 100
== END 2025-02-24 16:50 | disposition home or self-care (01) ==
LOC: ER 05:30 → ERHOLD 07:29 → 4TH 09:06
PROVIDERS: ADMIT Hospitalist; ATTEND Hospitalist
DX: J44.1 Chronic obstructive pulmonary disease with (acute) exacerbation (principal); I50.9 Heart failure, unspecified; Z85.038 Personal history of other malignant neoplasm of large intestine; Z85.46 Personal history of malignant neoplasm of prostate
CPT/HCPCS: 93005 ×2; 85025 ×2; 80048; 36415 ×2; 83735; 85610; 80076; 84484; 80053; 83880; 71045; 94640; 96374; 99285; J3535; J1938 ×2; J7613 ×2; J7644 ×2; J2919; G0378

== ENCOUNTER 2025-02-26 00:47 | Emergency (ER) | payer OTHER ==
[2025-02-26] MEDS ORDERED: ALBUTEROL 2.5 MG/3 ML NEB SOL ONE (01:24)
[2025-02-26] MEDS ORDERED: METHYLPREDNISOLONE 125 MG INJ ONE (01:25)
[2025-02-26] MEDS ORDERED: ASPIRIN 81 MG CHEWABLE TABLET ONE (01:25)
[2025-02-26] MEDS ORDERED: IPRATROPIUM BROM 0.5MG/2.5ML ONE (01:25)
[2025-02-26] MEDS ORDERED: KETOROLAC 30 MG/ML INJ ONE (01:25)
[2025-02-26] MEDS ORDERED: GUAIFENESIN/DM 5 ML UCUP ONE (01:26)
[2025-02-26] MEDS ORDERED: NA CHLORIDE 0.9% 500 ML ONE (01:26)
[2025-02-26 01:32] LABS: Absolute Lymphocytes (CBC) 2.3 K/uL (0.7-4.9); Hematocrit 47.6 % (39.6-49.0); Hemoglobin 15.8 g/dL (13.6-17.9); MCH 29.7 pg (27.0-35.0); MCHC 33.2 g/dL (32.0-36.0); MCV 89.5 fL (80-100); MPV 11.2 fL (7.6-11.3); Nucleated RBC Absolute Count 0.0 (0-0); Nucleated Red Blood Cells % 0.1 % (0-0); RBC Red Blood Cell Count 5.31 M/uL (4.33-5.43); White Blood Count 12.90 thou/uL (4.3-10.9)
[2025-02-26 01:38] LABS: ALT/SGPT 17.0 U/L (16-61); AST/SGOT 11.0 U/L (15-37); Albumin 3.0 g/dL (3.4-5.0); Albumin/Globulin Ratio 1.1 (1.1-1.8); Alkaline Phosphatase 58.0 U/L (45-117); Anion Gap 7.6 mEq/L (5.0-15.0); BUN Blood Urea Nitrogen 17.0 mg/dL (7-18); Bilirubin Indirect, Calculated 0.4 mg/dL (0.2-0.8); Globulin 2.8 g/dL (2.3-3.5); Glucose Level 84.0 mg/dL (74-106); Lipase 36.0 U/L (13-75); Magnesium 2.2 mg/dL (1.6-2.4); Potassium 3.6 mEq/L (3.5-5.1); Troponin High Sensitivity 24.0 pg/mL (<58.9)
--- NOTE | 2025-02-26 02:48 | RAD REPORT ---
EXAM: XR Chest, 1 View CLINICAL HISTORY: The patient is 64 years old and is Male; CHEST PAIN TECHNIQUE: Frontal view of the chest. COMPARISON: No relevant prior studies available. FINDINGS: LUNGS: Unremarkable. No consolidation. PLEURAL SPACE: Unremarkable. No pneumothorax. HEART: Unremarkable. No cardiomegaly. MEDIASTINUM: Unremarkable. Normal mediastinal contour. BONES/JOINTS: Unremarkable. No acute fracture. UPPER ABDOMEN: Unremarkable as visualized. IMPRESSION: No acute cardiopulmonary process. Electronically signed by: Natalia Calloway MD 02/26/2025 02:42 AM CDT RP Due to temporary technical issues with the PACS/[employer] reporting system, reports are being spring d by the in-house radiologist without review as a courtesy to ensure prompt reporting the interpreting radiologist is fully responsible for the content of the report. Transcribed Date/Time: 02/26/2025 2:48 AM
--- NOTE | 2025-02-26 04:40 | ER ---
Nurse's Notes [facility] Name: Jc Becerra Jr Age: 64 yrs Sex: Male : 1960 Arrival Date: 02/26/2025 Time: 00:47 Bed 3 Private MD: Diagnosis: Acute COPD exacerbation;Acute dyspnea secondary to unmanaged COPD Presentation: 02/26 00:53 Chief complaint: EMS states: shortness of breath that came back today. Patient was seen cp4 yesterday and prescribed medications but did not pick them up. Coronavirus screen: Client denies travel out of the [place] in the last 14 days. At this time, the client does not indicate any symptoms associated with coronavirus-19. Ebola Screen: Patient negative for fever greater than or equal to 101.5 degrees Fahrenheit, and additional compatible Ebola Virus Disease symptoms Patient denies exposure to infectious person. Patient denies travel to an Ebola-affected area in the 21 days before illness onset. No symptoms or risks identified at this time. 00:53 Method Of Arrival: EMS: [facility] 01:03 Initial Sepsis Screen: Does the patient meet any 2 criteria? HR > 90 bpm. No. Patient's cp4 initial sepsis screen is negative. Does the patient have a suspected source of infection? No. Patient's initial sepsis screen is negative. Risk Assessment: Do you want to hurt yourself or someone else? Patient reports no desire to harm self or others. Onset of symptoms was February 25, 2025. 01:03 Acuity: TESFAYE 3 cp4 Triage Assessment: 01:04 General: Appears in no apparent distress. uncomfortable, Behavior is calm, cooperative, cp4 appropriate for age. Pain: Denies pain. EENT: No signs and/or symptoms were reported regarding the EENT system. Neuro: Level of Consciousness is awake, alert, obeys commands, Oriented to person, place, time, situation. Cardiovascular: Patient's skin is warm and dry. Respiratory: Airway is patent Respiratory effort is even, unlabored. Respiratory: Breath sounds are clear bilaterally. GI: No signs and/or symptoms were reported involving the gastrointestinal system. : No signs and/or symptoms were reported regarding the genitourinary system. Derm: No signs and/or symptoms reported regarding the dermatologic system. Musculoskeletal: No signs and/or symptoms reported regarding the musculoskeletal system. Historical: - Allergies: 01:04 Ibuprofen; cp4 - PMHx: 01:04 CHF; COPD; Emphysema (Pneumonia); Hernia; Hypertension; Pneumonia; Prostate Cancer; cp4 - PSHx: 01:04 prostate; Removal; cp4 - Immunization history:: Adult Immunizations up to date. - Infectious Disease History:: Denies. - Social history:: Smoking status: Patient reports the use of cigarette tobacco products, denies chronic smoking, but will smoke occasionally. - Family history:: not pertinent. Screenin:05 [facility] ED Fall Risk Assessment (Adult) History of falling in the last 3 months, cp4 including since admission No falls in past 3 months (0 pts) Confusion or Disorientation No (0 pts) Intoxicated or Sedated No (0 pts) Impaired Gait No (0 pts) Mobility Assist Device Used No (0 pt) Altered Elimination No (0 pt) Score/Fall Risk Level 0 - 2 = Low Risk Oriented to surroundings, Maintained a safe environment, Assessed \T\ reinforced patient's understanding of fall precautions, Hourly rounding (assess needs \T\ fall precautionary measures) done. Abuse screen: Denies threats or abuse. Denies injuries from another. Nutritional screening: No deficits noted. Tuberculosis screening: No symptoms or risk factors identified. Never had TB. Assessment: 01:05 Reassessment: No changes from previously documented assessment. cp4 03:14 Reassessment: Patient appears in no apparent distress at this time. No changes from vc1 previously documented assessment. Patient and/or family updated on plan of care and expected duration. Pain level reassessed. Patient is alert, oriented x 3, equal unlabored respirations, skin warm/dry/pink. Vital Signs: 01:03 BP 142 / 92; Pulse 97; Resp 18; Temp 97.6; Pulse Ox 100% on R/A; Weight 70.31 kg; cp4 Height 6 ft. 0 in. ; Pain 0/10; 01:38 BP 127 / 87; Pulse 109; Resp 18; Pulse Ox 99% ; vc1 02:30 BP 138 / 76; Pulse 95; Resp 18; Pulse Ox 100% ; cp4 03:14 BP 128 / 72; Pulse 106; Resp 17; Pulse Ox 95% ; vc1 03:55 BP 138 / 77; Pulse 94; Resp 25; Pulse Ox 98% ; vc1 04:54 BP 123 / 75; Pulse 103; Resp 18; Pulse Ox 98% on R/A; ja5 01:03 Body Mass Index 21.02 (70.31 kg, 182.88 cm) cp4 01:03 Pain Scale: Adult cp4 [place] Coma Score: 04:43 Eye Response: spontaneous(4). Verbal Response: oriented(5). Motor Response: obeys sp4 commands(6). Total: 15. ED Course: 00:47 Patient arrived in ED. vk 00:48 Alex Zhao MD is Attending Physician. sp4 00:53 Christine Driver is Primary Nurse. cp4 01:04 Triage completed. cp4 01:04 Arm band placed on right wrist. Patient placed in an exam room, on a stretcher. cp4 01:05 BMP Sent. oe 01:05 CBC with Diff Sent. oe 01:05 CPK Sent. oe 01:05 D-Dimer Sent. oe 01:05 Hepatic Function Sent. oe 01:05 Lipase Sent. oe 01:05 No provider procedures requiring assistance completed. Maintain EMS IV. Dressing cp4 intact. Good blood return noted. Site clean \T\ dry. Gauge \T\ site: 18 G RAC. 01:05 Placed in gown. Bed in low position. Call light in reach. Side rails up X2. cp4 01:06 Magnesium Sent. oe 01:06 Troponin HS Sent. oe 01:23 XRAY CXR (1 view) In Process Unspecified. EDMS 04:32 Kael Schofield MD is Referral Physician. sp4 04:55 intact, bleeding controlled, No redness/swelling at site. Pressure dressing applied. ja5 04:55 Provided Education on: COPD. ja5 Administered Medications: 01:36 Drug: Albuterol Inhalation 2.5 mg Inhalation every 20 minutes x3 Route: Inhalation; cp4 01:36 Drug: Ipratropium Inhalation Aerosol 0.5 mg Inhalation once; Every 20 min for a total cp4 of 3 treatments x3 Route: Inhalation; 01:36 Drug: Dextromethorphan-Guaifenesin PO Liquid 10 mg-100 mg/5 mL 20 ml PO once Route: PO; cp4 02:23 Follow up: Response: No adverse reaction cp4 01:36 Drug: Ketorolac IVP 30 mg IVP once Route: IVP; Site: right antecubital; cp4 02:23 Follow up: Response: No adverse reaction; Pain is decreased cp4 01:36 Drug: Aspirin PO Chewable Tablet 324 mg PO once; 81 mg tablets x 4 Route: PO; cp4 02:23 Follow up: Response: No adverse reaction cp4 01:36 Drug: NS 0.9% IV 500 ml 500 ml IV at 1 bolus once; to be given as a bolus over 30 cp4 minutes Volume: 500 ml; Route: IV; Rate: 1 bolus; Site: right antecubital; 04:54 Follow up: IV Status: Completed infusion ja5 01:37 Drug: MethylPrednisoLONE IVP 125 mg IVP once Route: IVP; Site: right antecubital; cp4 02:24 Follow up: Response: No adverse reaction cp4 02:00 Drug: Albuterol Inhalation 2.5 mg Inhalation every 20 minutes x3 Route: Inhalation; cp4 02:00 Drug: Ipratropium Inhalation Aerosol 0.5 mg Inhalation once; Every 20 min for a total cp4 of 3 treatments x3 Route: Inhalation; 02:24 Drug: Albuterol Inhalation 2.5 mg Inhalation every 20 minutes x3 Route: Inhalation; cp4 02:24 Follow up: Response: No adverse reaction cp4 02:24 Drug: Ipratropium Inhalation Aerosol 0.5 mg Inhalation once; Every 20 min for a total cp4 of 3 treatments x3 Route: Inhalation; 02:24 Follow up: Response: No adverse reaction cp4 Medication: 01:05 VIS not applicable for this client. cp4 Outcome: 04:40 Discharge ordered by . keyana 04:55 Discharged to home ambulatory, ja5 04:55 Condition: stable 04:55 Discharge instructions given to patient, Instructed on discharge instructions, follow up and referral plans. medication usage, Demonstrated understanding of instructions, follow-up care, medications, Prescriptions given X 2, 05:00 Patient left the ED. cp4 Signatures: Dispatcher [employer] EDMS Gume Olivas Vanessa RN RN vc1 Alex Zhao MD MD sp4 Christine Driver cp4 Jacqueline Garcia Joy ja5 Corrections: (The following items were deleted from the chart) 04:56 04:55 Provided Education on: ja5 ja5
--- NOTE | 2025-02-26 04:40 | EDPHYS ---
Physician Documentation [facility] Name: Jc Becerra Jr Age: 64 yrs Sex: Male : 1960 Arrival Date: 02/26/2025 Time: 00:47 Bed 3 Private MD: ED Physician Alex Zhao HPI: 02/26 00:48 This 64 yrs old Male presents to ER via Unassigned with complaints of COPD sp4 and breathing issue . 04:43 Sick 4-year-old male with history of COPD presents with complaint of dyspnea and cough. sp4 Patient has further past medical history of CHF, colon cancer, history of lung infections. Recent admission 02/23/2025 through 02/24/2025. Home medications include tramadol 100 mg p.o. 3 times daily, Advair [id number] elation twice daily, metoprolol 25 mg p.o. twice daily. Patient sounds presents with EMS for acute worsening in dyspnea.. Historical: - Allergies: 01:04 Ibuprofen; cp4 - PMHx: 01:04 CHF; COPD; Emphysema (Pneumonia); Hernia; Hypertension; Pneumonia; Prostate Cancer; cp4 - PSHx: 01:04 prostate; Removal; cp4 - Immunization history:: Adult Immunizations up to date. - Infectious Disease History:: Denies. - Social history:: Smoking status: Patient reports the use of cigarette tobacco products, denies chronic smoking, but will smoke occasionally. - Family history:: not pertinent. ROS: 04:43 Constitutional: Negative for fever, chills, and weight loss, positive for acute dyspnea sp4 positive for cough 04:43 All other systems are negative, Exam: 04:43 Constitutional: Physically debilitated appearing male, moderate physical sp4 deconditioning, COPD body habitus. Head/Face: Normocephalic, atraumatic. Eyes: Pupils equal round and reactive to light, extra-ocular motions intact. Lids and lashes normal. Conjunctiva and sclera are not injected. Cornea within normal limits. Periorbital areas with no swelling, redness, or edema. ENT: Nares patent. No nasal discharge, no septal abnormalities noted. Tympanic membranes are normal and external auditory canals are clear. Oropharynx with no redness, swelling, or masses, exudates, or evidence of obstruction, uvula midline. Mucous membranes moist. Neck: Trachea midline, no thyromegaly or masses palpated, and no cervical lymphadenopathy. Supple, full range of motion without nuchal rigidity, or vertebral point tenderness. Chest/axilla: Normal chest wall appearance and motion. Nontender with no deformity. No lesions are appreciated. Cardiovascular: Regular rate and rhythm with a normal S1 and S2. No gallops, murmurs, or rubs. No pulse deficits. Respiratory: Lungs have equal breath sounds bilaterally, clear to auscultation and percussion. No rales, rhonchi or wheezes noted. No increased work of breathing, no retractions or nasal flaring. Abdomen/GI: Soft, with normal bowel sounds. No distension or tympany. No guarding or rebound. No evidence of tenderness throughout. Back: No spinal tenderness. No costovertebral tenderness. Skin: Warm, dry with normal turgor. Normal color with no rashes, no lesions, and no evidence of cellulitis. MS/ Extremity: Pulses equal, no cyanosis. Neurovascular intact. Full, normal range of motion. Neuro: Awake and alert, GCS 15, oriented to person, place, time, and situation. Cranial nerves II-XII grossly intact. Motor strength 5/5 in all extremities. Sensory grossly intact. Psych: Awake, alert, with orientation to person, place and time. Behavior, mood, and affect are within normal limits 04:48 ECG was reviewed by the Attending Physician. EKG 0 125 normal sinus rhythm rate 98, sp4 no ST elevation or depression, prolonged QT otherwise normal Vital Signs: 01:03 BP 142 / 92; Pulse 97; Resp 18; Temp 97.6; Pulse Ox 100% on R/A; Weight 70.31 kg; cp4 Height 6 ft. 0 in. ; Pain 0/10; 01:38 BP 127 / 87; Pulse 109; Resp 18; Pulse Ox 99% ; vc1 02:30 BP 138 / 76; Pulse 95; Resp 18; Pulse Ox 100% ; cp4 03:14 BP 128 / 72; Pulse 106; Resp 17; Pulse Ox 95% ; vc1 03:55 BP 138 / 77; Pulse 94; Resp 25; Pulse Ox 98% ; vc1 04:54 BP 123 / 75; Pulse 103; Resp 18; Pulse Ox 98% on R/A; ja5 01:03 Body Mass Index 21.02 (70.31 kg, 182.88 cm) 4 01:03 Pain Scale: Adult cp4 [place] Coma Score: 04:43 Eye Response: spontaneous(4). Verbal Response: oriented(5). Motor Response: obeys sp4 commands(6). Total: 15. MDM: 00:51 Medical Screening Exam initiated sp4 04:31 ED course: TECHNIQUE: Frontal view of the chest. COMPARISON: No relevant prior studies sp4 available. FINDINGS: LUNGS: Unremarkable. No consolidation. PLEURAL SPACE: Unremarkable. No pneumothorax. HEART: Unremarkable. No cardiomegaly. MEDIASTINUM: Unremarkable. Normal mediastinal contour. BONES/JOINTS: Unremarkable. No acute fracture. UPPER ABDOMEN: Unremarkable as visualized. IMPRESSION: No acute cardiopulmonary process.. 04:46 Differential diagnosis: Anxiety Reaction asthma, Bronchitis CHF exacerbation, Chronic sp4 Obstructive Pulmonary Disease pneumonia. Data reviewed: vital signs, nurses notes, EMS record, old medical records, lab test result(s), EKG, radiologic studies, plain films. 02/26 00:49 Order name: BMP; Complete Time: 04: sp4 02/26 00:49 Order name: CBC with Diff; Complete Time: 04: sp4 02/26 00:49 Order name: CPK; Complete Time: 04: sp4 02/26 00:49 Order name: D-Dimer; Complete Time: 04: sp4 02/26 00:49 Order name: Hepatic Function; Complete Time: 04: sp4 02/26 00:49 Order name: Lipase; Complete Time: 04: sp4 02/26 00:49 Order name: Magnesium; Complete Time: 04: sp4 02/26 00:49 Order name: Troponin HS; Complete Time: 04: sp4 02/26 00:49 Order name: XRAY CXR (1 view) sp4 02/26 00:49 Order name: EKG; Complete Time: 00:50 sp4 02/26 00:49 Order name: Cardiac monitoring; Complete Time: 01:08 sp4 02/26 00:49 Order name: EKG - Nurse/Tech; Complete Time: 01:37 sp4 02/26 00:49 Order name: IV Saline Lock; Complete Time: 01:08 sp4 02/26 00:49 Order name: Labs collected and sent; Complete Time: 01:08 sp4 02/26 00:49 Order name: O2 Per Protocol; Complete Time: sp4 02/26 00:49 Order name: O2 Sat Monitoring; Complete Time: sp4 EC: Rate is 98 beats/min. Rhythm is regular, Normal Sinus Rhythm. QRS [place] is Normal. IA sp4 interval is normal. QRS interval is normal. QT interval is prolonged. No Q waves. T waves are Normal. No ST changes noted. Clinical impression: No evidence of ischemia. Interpreted by me. Reviewed by me. Administered Medications: 01:36 Drug: Albuterol Inhalation 2.5 mg Inhalation every 20 minutes x3 Route: Inhalation; cp4 01:36 Drug: Ipratropium Inhalation Aerosol 0.5 mg Inhalation once; Every 20 min for a total cp4 of 3 treatments x3 Route: Inhalation; 01:36 Drug: Dextromethorphan-Guaifenesin PO Liquid 10 mg-100 mg/5 mL 20 ml PO once Route: PO; cp4 02:23 Follow up: Response: No adverse reaction cp4 01:36 Drug: Ketorolac IVP 30 mg IVP once Route: IVP; Site: right antecubital; cp4 02:23 Follow up: Response: No adverse reaction; Pain is decreased cp4 01:36 Drug: Aspirin PO Chewable Tablet 324 mg PO once; 81 mg tablets x 4 Route: PO; cp4 02:23 Follow up: Response: No adverse reaction cp4 01:36 Drug: NS 0.9% IV 500 ml 500 ml IV at 1 bolus once; to be given as a bolus over 30 cp4 minutes Volume: 500 ml; Route: IV; Rate: 1 bolus; Site: right antecubital; 04:54 Follow up: IV Status: Completed infusion ja5 01:37 Drug: MethylPrednisoLONE IVP 125 mg IVP once Route: IVP; Site: right antecubital; cp4 02:24 Follow up: Response: No adverse reaction cp4 02:00 Drug: Albuterol Inhalation 2.5 mg Inhalation every 20 minutes x3 Route: Inhalation; cp4 02:00 Drug: Ipratropium Inhalation Aerosol 0.5 mg Inhalation once; Every 20 min for a total cp4 of 3 treatments x3 Route: Inhalation; 02:24 Drug: Albuterol Inhalation 2.5 mg Inhalation every 20 minutes x3 Route: Inhalation; cp4 02:24 Follow up: Response: No adverse reaction cp4 02:24 Drug: Ipratropium Inhalation Aerosol 0.5 mg Inhalation once; Every 20 min for a total cp4 of 3 treatments x3 Route: Inhalation; 02:24 Follow up: Response: No adverse reaction cp4 Disposition: 22:03 Chart complete. sp4 Disposition Summary: 02/26/25 04:40 Discharge Ordered Notes: Location: Home sp4 Problem: new sp4 Symptoms: have improved sp4 Condition: Stable sp4 Diagnosis - Acute COPD exacerbation sp4 - Acute dyspnea secondary to unmanaged COPD sp4 Followup: sp4 - With: Kael Schofield MD - When: 7 - 10 days - Reason: Recheck today's complaints Discharge Instructions: - Discharge Summary Sheet sp4 - Living With COPD sp4 Forms: - Patient Portal Instructions sp4 Prescriptions: - Ventolin HFA 90 mcg/actuation Inhalation HFA Aerosol Inhaler - inhale 2 puff INHALATION route 4 times per day PRN wheezing; 1 unit; Refills: sp4 0, Product Selection Permitted - dextromethorphan-guaifenesin 20-400 mg Oral tablet - take 1 tablet ORAL route every 6 hours as needed for cough; 60 tablet; Refills: sp4 0, Product Selection Permitted Signatures: Dispatcher [employer] Alex De La Torre MD MD sp4 Christine Driver cp4 Yeni Zuleta
[2025-02-26 05:17] VITALS: TEMP 97.6
[2025-02-26 05:22] VITALS: O2SAT 98
[2025-02-26 05:23] VITALS: BP 123/75
== END 2025-02-26 05:00 | disposition home or self-care (01) ==
LOC: ER 00:47
DX: J44.1 Chronic obstructive pulmonary disease with (acute) exacerbation (principal); I50.9 Heart failure, unspecified; F17.210 Nicotine dependence, cigarettes, uncomplicated
CPT/HCPCS: 96361; 93005; 85025; 80048; 36415; 83735; 82550; 85379; 80076; 84484; 83690; 71045; 96375; 96374; 99285; J1885; J7613; J7644; J2919; J7040